=== PATIENT | male | born 1965 | race Caucasian/White ===

== ENCOUNTER 2023-07-03 17:55 | Inpatient (IN) ==
[2023-07-03] MEDS ORDERED: ONDANSETRON INJ 2 MG/ML 2 ML VIAL IV STA ×2 (17:56→19:36)
[2023-07-03] MEDS ORDERED: PANTOprazole 80 MG in SYRINGE 0 ML IV STA (17:56)
[2023-07-03] MEDS ORDERED: OCTREOTIDE ACETATE 100 MCG in SYRINGE 9 ML IV STA (17:56)
[2023-07-03] MEDS ORDERED: STAT IV/IM STA ×2 (17:56→20:23)
[2023-07-03] MEDS ORDERED: SODIUM CHLORIDE 0.9% 1,000 ML IV SCH (18:00)
--- NOTE | 2023-07-03 18:06 | Emergency Department Note ---
Impression & Plan Hematemesis, Hemorrhagic shock, Bleeding esophageal varices, Thrombocytopenia ED Provider Note HISTORY OF PRESENT ILLNESS: Patient is a 58-year-old male presenting with abdominal pain and gross hematemesis. Patient son provides history given patient's significant pain and vomiting blood. Son reports that the patient started vomiting bright red bloody emesis starting 20 minutes prior to arrival. He reports that the patient vomited "at least 3 L of blood in the house." He does report that the patient did have a few alcoholic drinks today. Patient is complaining of diffuse abdominal pain. Patient does report that he has a history of esophageal varices. Son reports that a few weeks ago the patient had to be intubated and life flighted out of [facility] ROS: as above PHYSICAL EXAM: Constitutional: Patient appears in moderate distress. Patient is vomiting bright red bloody emesis HENT: Head: Normocephalic and atraumatic. Eyes: EOMI, PERRL Mouth/Throat: Mucous membranes moist. Neck: Trachea midline. Neck supple. Cardiovascular: Tachycardic and regular rhythm. No murmurs, rubs or gallops. Intact distal pulses. Pulmonary/Chest: No respiratory distress. Breath sounds clear and equal bilaterally. No wheezes or rales. Abdominal: Abdomen soft, no rebound or guarding. Diffuse tenderness to palpation Musculoskeletal: No edema, tenderness or deformity noted. Skin: Warm and dry. Patient is jaundiced Neurological: Alert and keenly responsive. CN II-XII grossly intact, moving all extremities equally and fully. MDM: - Vitals signs showed hypotension and tachycardia - History obtained via patient patient's son. Patient presents with abdominal pain and gross hematemesis. Patient reportedly started vomiting bright red blood about 20 minutes prior to arrival. Son stated multiple episodes of bright red bloody vomitus. Patient has had a few alcoholic drinks today. Patient is complaining diffuse abdominal pain. He does have a history of cirrhosis with esophageal varices. - Chronic conditions affecting care: Alcohol cirrhosis - Differential diagnoses include, but are not limited to: Esophageal varices bleeding; peptic ulcer bleeding; Boerhaave's; perforated viscus - Order placed for continuous cardiac monitoring. At this time, monitor showed rate of 83 bpm with normal sinus rhythm, per my interpretation. - External medical records reviewed. - Given patient's active upper GI bleed and vital sign instability, he was geraldo rgently transfused 2 units of blood. He was also given 2 L of normal saline as fluid resuscitation. - Given 4 mg IV zofran on arrival for vomiting. - Given 80 mg IV Protonix and started on protonix drip. Given IV octreotide bolus and started on octreotide drip - Laboratory workup interpreted by myself showed leukopenia (WBC 3.82); anemia (Hgb 7.6); thrombocytopenia (plt 42); supratherapeutic INR (1.7); hypokalemia (K 2.7); elevated anon gap (13); normal creatinine; elevated AST (195); elevated ammonia (84); elevated lipase (132); elevated alcohol (215.2); elevated lactate (8.4) - Patient was monitored on telemetry in ER. His BP started to trend to low 90s. 2 more units of blood was ordered for transfusion and 2 units of platelets. - Given 50 mcg IV fentanyl for abdominal pain. - Patient given 20 mEq IV potassium replacement in ER. Given an additional 4 mg IV zofran for nausea. Given 1g IV calcium for hypokalemia and in setting of large volume transfusion. - CT abdomen/pelvis with IV contrast showed cirrhosis with manifestations of portal hypertension with esophageal varices. - Discussed case with GI director summer sessions, Dr. Carvajal. He recommends continuing Protonix and octreotide and transfusions as needed. We will plan for EGD in morning as long as patient has no further episodes of hematemesis. If patient does have further hematemesis, you, do the EGD. - Discussion was had with licensed master social worker about patient's case and need for admission - ICU NAVDEEP consulted for further care of patient. - Hospitalist consulted for admission - Patient admitted to [facility] for further evaluation and management. - Prior to the patient leaving the emergency department, he had another episode of bright red bloody emesis, about 200 cc of blood. Patient's blood pressure remained stable at 120s/80. Patient is receiving his third unit of blood. ICU at 2053 is refusing to admit the patient, stating the patient requires a higher level of care given his complicated medical history and his active GI bleeding. -Initiation of transfer was started to [facility], as patient states that is where he normally follows with his hospital supervisor. Transfer was initiated at 2107. -Dr. Carvajal with GI came and evaluated the patient in person. He is taken the patient to the Endo suite. ICU is now stating that with patient going to the Endo suite, he is stable enough to be kept here at our ICU. Patient to be admitted to the ICU post procedure. I provided 181 minutes of critical care time to this patient's care outside of billable procedures. ASSESSMENT AND PLAN: Diagnosis: Hematemesis; hemorrhagic shock; bleeding esophageal varices Plan: Admit Past Med/Surg History Social History Smoking Status: Never smoker Preferred Language: Hungarian Feels Safe at Home: Yes Allergies Allergies Allergy/AdvReac Type Severity Reaction Status Date / Time No Known Allergies Allergy Unverified 07/03/23 19:47 Home Meds Home Medications Medication Instructions Recorded Confirmed furosemide 40 mg tablet 40 mg PO QAM 07/03/23 07/03/23 hydroxyzine HCl 25 mg tablet 25 mg PO HS PRN Sleep 07/03/23 07/03/23 levothyroxine 100 mcg tablet 100 mcg PO DAILYBB 07/03/23 07/03/23 multivitamin 1 tab PO QAM 07/03/23 07/03/23 omega-3 fatty acids 1,000 mg 1,000 mg PO QAM 07/03/23 07/03/23 capsule potassium chloride 8 mEq 8 meq PO BID 07/03/23 07/03/23 tablet,extended release tamsulosin 0.4 mg capsule 0.4 mg PO HS 07/03/23 07/03/23 Results & Data (ED) Vital Signs Vital Signs - 24 hr 07/03/23 18:20 07/03/23 17:59 07/03/23 18:13 Temperature 36.6 C Temperature Source Oral Pulse Rate 102 H 96 H Pulse Rate from SpO2 Sensor Pulse Rhythm Pulse Strength Respiratory Rate 26 H Blood Pressure 79/53 L 105/62 Blood Pressure [Right Arm] Blood Pressure Mean 61 76 Blood Pressure Mean [Right Arm] Blood Pressure Position Sitting Pulse Oximetry 99 Oxygen Delivery Method Oxygen Flow Rate Sepsis Recent Fever Within 48 Hours No Sepsis New/Unexplained Change in Mental Status No Sepsis Action Taken by Nursing No Action Required 07/03/23 18:17 07/03/23 18:28 07/03/23 18:33 Temperature 36.1 C L Temperature Source Axillary Pulse Rate 84 87 8 L Pulse Rate from SpO2 Sensor Pulse Rhythm Regular Pulse Strength Normal Respiratory Rate 22 20 Blood Pressure 120/68 128/80 Blood Pressure [Right Arm] Blood Pressure Mean 85 96 Blood Pressure Mean [Right Arm] Blood Pressure Position Pulse Oximetry 100 99 100 Oxygen Delivery Method Nasal Cannula Oxygen Flow Rate 2 2 Sepsis Recent Fever Within 48 Hours Sepsis New/Unexplained Change in Mental Status Sepsis Action Taken by Nursing 07/03/23 18:00 07/03/23 18:14 07/03/23 18:15 Temperature Temperature Source Pulse Rate 101 H 96 H 94 H Pulse Rate from SpO2 Sensor 101 H 94 H Pulse Rhythm Pulse Strength Respiratory Rate 33 H 7 L 27 H Blood Pressure 110/68 105/62 120/68 Blood Pressure [Right Arm] Blood Pressure Mean 82 76 85 Blood Pressure Mean [Right Arm] Blood Pressure Position Pulse Oximetry 98 98 Oxygen Delivery Method Oxygen Flow Rate Sepsis Recent Fever Within 48 Hours Sepsis New/Unexplained Change in Mental Status Sepsis Action Taken by Nursing 07/03/23 18:20 07/03/23 18:30 07/03/23 18:35 Temperature Temperature Source Pulse Rate 89 90 80 Pulse Rate from SpO2 Sensor 90 89 80 Pulse Rhythm Pulse Strength Respiratory Rate 29 H 17 35 H Blood Pressure 103/68 128/80 129/69 Blood Pressure [Right Arm] Blood Pressure Mean 79 96 89 Blood Pressure Mean [Right Arm] Blood Pressure Position Pulse Oximetry 100 100 100 Oxygen Delivery Method Oxygen Flow Rate Sepsis Recent Fever Within 48 Hours Sepsis New/Unexplained Change in Mental Status Sepsis Action Taken by Nursing 07/03/23 18:35 07/03/23 18:40 07/03/23 18:45 Temperature Temperature Source Pulse Rate 88 100 H Pulse Rate from SpO2 Sensor 88 88 Pulse Rhythm Pulse Strength Respiratory Rate 30 H 31 H Blood Pressure 116/73 116/72 110/60 Blood Pressure [Right Arm] Blood Pressure Mean 96 86 76 Blood Pressure Mean [Right Arm] Blood Pressure Position Pulse Oximetry 100 100 Oxygen Delivery Method Nasal Cannula Oxygen Flow Rate 2 Sepsis Recent Fever Within 48 Hours Sepsis New/Unexplained Change in Mental Status Sepsis Action Taken by Nursing 07/03/23 18:50 07/03/23 18:50 07/03/23 18:55 Temperature Temperature Source Pulse Rate 73 Pulse Rate from SpO2 Sensor 74 Pulse Rhythm Pulse Strength Respiratory Rate 22 Blood Pressure 128/73 128/73 116/73 Blood Pressure [Right Arm] Blood Pressure Mean 84 91 78 Blood Pressure Mean [Right Arm] Blood Pressure Position Pulse Oximetry 100 100 Oxygen Delivery Method Nasal Cannula Nasal Cannula Oxygen Flow Rate 2 Sepsis Recent Fever Within 48 Hours Sepsis New/Unexplained Change in Mental Status Sepsis Action Taken by Nursing 07/03/23 18:55 07/03/23 18:59 07/03/23 18:59 Temperature Temperature Source Pulse Rate 70 78 Pulse Rate from SpO2 Sensor 70 78 Pulse Rhythm Pulse Strength Respiratory Rate 14 19 Blood Pressure 115/78 Blood Pressure [Right Arm] Blood Pressure Mean 90 Blood Pressure Mean [Right Arm] Blood Pressure Position Pulse Oximetry 100 100 Oxygen Delivery Method Oxygen Flow Rate Sepsis Recent Fever Within 48 Hours Sepsis New/Unexplained Change in Mental Status Sepsis Action Taken by Nursing 07/03/23 19:00 07/03/23 19:00 07/03/23 19:05 Temperature Temperature Source Pulse Rate 87 76 Pulse Rate from SpO2 Sensor 87 75 Pulse Rhythm Pulse Strength Respiratory Rate 23 13 Blood Pressure 109/78 Blood Pressure [Right Arm] Blood Pressure Mean 89 Blood Pressure Mean [Right Arm] Blood Pressure Position Pulse Oximetry 99 100 Oxygen Delivery Method Oxygen Flow Rate Sepsis Recent Fever Within 48 Hours Sepsis New/Unexplained Change in Mental Status Sepsis Action Taken by Nursing 07/03/23 19:05 07/03/23 19:10 07/03/23 19:10 Temperature Temperature Source Pulse Rate 79 Pulse Rate from SpO2 Sensor 79 Pulse Rhythm Pulse Strength Respiratory Rate 16 Blood Pressure 111/69 106/65 Blood Pressure [Right Arm] Blood Pressure Mean 83 80 Blood Pressure Mean [Right Arm] Blood Pressure Position Pulse Oximetry 99 Oxygen Delivery Method Oxygen Flow Rate Sepsis Recent Fever Within 48 Hours Sepsis New/Unexplained Change in Mental Status Sepsis Action Taken by Nursing 07/03/23 19:21 07/03/23 19:15 07/03/23 19:15 Temperature Temperature Source Pulse Rate 84 Pulse Rate from SpO2 Sensor 83 Pulse Rhythm Pulse Strength Respiratory Rate 19 Blood Pressure 110/59 L Blood Pressure [Right Arm] 99/60 L Blood Pressure Mean 76 Blood Pressure Mean [Right Arm] 73 Blood Pressure Position Pulse Oximetry 100 Oxygen Delivery Method Oxygen Flow Rate Sepsis Recent Fever Within 48 Hours Sepsis New/Unexplained Change in Mental Status Sepsis Action Taken by Nursing 07/03/23 19:45 07/03/23 20:00 07/03/23 21:00 Temperature 36.5 C 36.6 C Temperature Source Oral Oral Pulse Rate 90 83 Pulse Rate from SpO2 Sensor Pulse Rhythm Regular Regular Pulse Strength Normal Normal Respiratory Rate 24 20 Blood Pressure 84/53 L 94/58 L Blood Pressure [Right Arm] Blood Pressure Mean 63 70 Blood Pressure Mean [Right Arm] Blood Pressure Position Pulse Oximetry 98 100 Oxygen Delivery Method Nasal Cannula Oxygen Flow Rate 4 4 Sepsis Recent Fever Within 48 Hours Sepsis New/Unexplained Change in Mental Status Sepsis Action Taken by Nursing 07/03/23 21:25 07/03/23 20:24 07/03/23 19:20 Temperature 36.7 C 36.6 C Temperature Source Oral Oral Pulse Rate 82 87 Pulse Rate from SpO2 Sensor Pulse Rhythm Regular Pulse Strength Normal Respiratory Rate 18 34 H Blood Pressure 125/71 107/88 99/60 L Blood Pressure [Right Arm] Blood Pressure Mean 89 94 66 Blood Pressure Mean [Right Arm] Blood Pressure Position Pulse Oximetry 100 100 Oxygen Delivery Method Oxygen Flow Rate 4 Sepsis Recent Fever Within 48 Hours Sepsis New/Unexplained Change in Mental Status Sepsis Action Taken by Nursing 07/03/23 19:25 07/03/23 19:30 07/03/23 19:35 Temperature Temperature Source Pulse Rate 85 89 Pulse Rate from SpO2 Sensor 86 89 Pulse Rhythm Pulse Strength Respiratory Rate 22 21 Blood Pressure 89/52 L 89/60 L 84/53 L Blood Pressure [Right Arm] Blood Pressure Mean 61 69 63 Blood Pressure Mean [Right Arm] Blood Pressure Position Pulse Oximetry 99 99 Oxygen Delivery Method Oxygen Flow Rate Sepsis Recent Fever Within 48 Hours Sepsis New/Unexplained Change in Mental Status Sepsis Action Taken by Nursing 07/03/23 19:47 07/03/23 19:50 07/03/23 19:55 Temperature Temperature Source Pulse Rate 87 82 88 Pulse Rate from SpO2 Sensor 87 82 88 Pulse Rhythm Pulse Strength Respiratory Rate 35 H 25 H 50 H Blood Pressure 103/57 L 103/57 L 102/57 L Blood Pressure [Right Arm] Blood Pressure Mean 72 72 72 Blood Pressure Mean [Right Arm] Blood Pressure Position Pulse Oximetry 98 99 99 Oxygen Delivery Method Oxygen Flow Rate Sepsis Recent Fever Within 48 Hours Sepsis New/Unexplained Change in Mental Status Sepsis Action Taken by Nursing 07/03/23 20:00 07/03/23 20:05 07/03/23 20:10 Temperature Temperature Source Pulse Rate 85 82 85 Pulse Rate from SpO2 Sensor 86 82 84 Pulse Rhythm Pulse Strength Respiratory Rate 17 15 21 Blood Pressure 94/58 L 91/57 L 91/58 L Blood Pressure [Right Arm] Blood Pressure Mean 70 68 69 Blood Pressure Mean [Right Arm] Blood Pressure Position Pulse Oximetry 98 100 100 Oxygen Delivery Method Oxygen Flow Rate Sepsis Recent Fever Within 48 Hours Sepsis New/Unexplained Change in Mental Status Sepsis Action Taken by Nursing 07/03/23 20:16 07/03/23 20:20 07/03/23 20:25 Temperature Temperature Source Pulse Rate 109 H 103 H 90 Pulse Rate from SpO2 Sensor 99 H 103 H 89 Pulse Rhythm Pulse Strength Respiratory Rate 32 H 28 H 29 H Blood Pressure 82/45 L 107/88 110/69 Blood Pressure [Right Arm] Blood Pressure Mean 57 94 82 Blood Pressure Mean [Right Arm] Blood Pressure Position Pulse Oximetry 100 100 100 Oxygen Delivery Method Oxygen Flow Rate Sepsis Recent Fever Within 48 Hours Sepsis New/Unexplained Change in Mental Status Sepsis Action Taken by Nursing 07/03/23 20:30 07/03/23 20:35 07/03/23 20:40 Temperature Temperature Source Pulse Rate 83 82 Pulse Rate from SpO2 Sensor 84 83 Pulse Rhythm Pulse Strength Respiratory Rate 28 H 26 H Blood Pressure 105/66 108/60 99/59 L Blood Pressure [Right Arm] Blood Pressure Mean 79 76 66 Blood Pressure Mean [Right Arm] Blood Pressure Position Pulse Oximetry 100 100 Oxygen Delivery Method Oxygen Flow Rate Sepsis Recent Fever Within 48 Hours Sepsis New/Unexplained Change in Mental Status Sepsis Action Taken by Nursing 07/03/23 20:40 07/03/23 20:45 07/03/23 20:45 Temperature Temperature Source Pulse Rate 79 79 Pulse Rate from SpO2 Sensor 80 78 Pulse Rhythm Pulse Strength Respiratory Rate 21 14 Blood Pressure 95/58 L Blood Pressure [Right Arm] Blood Pressure Mean 62 Blood Pressure Mean [Right Arm] Blood Pressure Position Pulse Oximetry 100 100 Oxygen Delivery Method Oxygen Flow Rate Sepsis Recent Fever Within 48 Hours Sepsis New/Unexplained Change in Mental Status Sepsis Action Taken by Nursing 07/03/23 20:50 07/03/23 20:50 07/03/23 20:55 Temperature Temperature Source Pulse Rate 82 86 Pulse Rate from SpO2 Sensor 82 87 Pulse Rhythm Pulse Strength Respiratory Rate 44 H 45 H Blood Pressure 111/63 Blood Pressure [Right Arm] Blood Pressure Mean 70 Blood Pressure Mean [Right Arm] Blood Pressure Position Pulse Oximetry 100 100 Oxygen Delivery Method Oxygen Flow Rate Sepsis Recent Fever Within 48 Hours Sepsis New/Unexplained Change in Mental Status Sepsis Action Taken by Nursing 07/03/23 20:55 07/03/23 21:00 07/03/23 21:02 Temperature Temperature Source Pulse Rate 130 H 122 H Pulse Rate from SpO2 Sensor 130 H 124 H Pulse Rhythm Pulse Strength Respiratory Rate 25 H 46 H Blood Pressure 121/71 Blood Pressure [Right Arm] Blood Pressure Mean 79 Blood Pressure Mean [Right Arm] Blood Pressure Position Pulse Oximetry 99 96 Oxygen Delivery Method Oxygen Flow Rate Sepsis Recent Fever Within 48 Hours Sepsis New/Unexplained Change in Mental Status Sepsis Action Taken by Nursing 07/03/23 21:02 07/03/23 21:09 07/03/23 21:09 Temperature Temperature Source Pulse Rate 93 H Pulse Rate from SpO2 Sensor 93 H Pulse Rhythm Pulse Strength Respiratory Rate 30 H Blood Pressure 135/67 113/69 Blood Pressure [Right Arm] Blood Pressure Mean 88 86 Blood Pressure Mean [Right Arm] Blood Pressure Position Pulse Oximetry 100 Oxygen Delivery Method Nasal Cannula Oxygen Flow Rate 4 Sepsis Recent Fever Within 48 Hours Sepsis New/Unexplained Change in Mental Status Sepsis Action Taken by Nursing 07/03/23 21:10 07/03/23 21:10 07/03/23 21:48 Temperature 36.7 C Temperature Source Oral Pulse Rate 89 81 Pulse Rate from SpO2 Sensor 89 Pulse Rhythm Regular Pulse Strength Normal Respiratory Rate 25 H 18 Blood Pressure 117/65 105/62 Blood Pressure [Right Arm] Blood Pressure Mean 79 76 Blood Pressure Mean [Right Arm] Blood Pressure Position Pulse Oximetry 100 100 Oxygen Delivery Method Oxygen Flow Rate 4 Sepsis Recent Fever Within 48 Hours Sepsis New/Unexplained Change in Mental Status Sepsis Action Taken by Nursing 07/03/23 21:55 07/03/23 21:15 07/03/23 21:15 Temperature Temperature Source Pulse Rate 78 88 Pulse Rate from SpO2 Sensor 88 Pulse Rhythm Pulse Strength Respiratory Rate 27 H Blood Pressure 94/61 L Blood Pressure [Right Arm] Blood Pressure Mean 67 Blood Pressure Mean [Right Arm] Blood Pressure Position Pulse Oximetry 100 Oxygen Delivery Method Oxygen Flow Rate Sepsis Recent Fever Within 48 Hours Sepsis New/Unexplained Change in Mental Status Sepsis Action Taken by Nursing 07/03/23 21:20 07/03/23 21:20 07/03/23 21:25 Temperature Temperature Source Pulse Rate 89 Pulse Rate from SpO2 Sensor 89 Pulse Rhythm Pulse Strength Respiratory Rate 43 H Blood Pressure 121/62 106/65 Blood Pressure [Right Arm] Blood Pressure Mean 86 78 Blood Pressure Mean [Right Arm] Blood Pressure Position Pulse Oximetry 100 Oxygen Delivery Method Oxygen Flow Rate Sepsis Recent Fever Within 48 Hours Sepsis New/Unexplained Change in Mental Status Sepsis Action Taken by Nursing 07/03/23 21:25 07/03/23 21:30 07/03/23 21:32 Temperature Temperature Source Pulse Rate 91 H 89 Pulse Rate from SpO2 Sensor 91 H 90 Pulse Rhythm Pulse Strength Respiratory Rate 34 H 20 Blood Pressure 128/69 Blood Pressure [Right Arm] Blood Pressure Mean 89 Blood Pressure Mean [Right Arm] Blood Pressure Position Pulse Oximetry 100 100 Oxygen Delivery Method Oxygen Flow Rate Sepsis Recent Fever Within 48 Hours Sepsis New/Unexplained Change in Mental Status Sepsis Action Taken by Nursing 07/03/23 21:35 07/03/23 21:35 07/03/23 21:40 Temperature Temperature Source Pulse Rate 84 Pulse Rate from SpO2 Sensor 84 Pulse Rhythm Pulse Strength Respiratory Rate 16 Blood Pressure 125/71 113/64 Blood Pressure [Right Arm] Blood Pressure Mean 84 73 Blood Pressure Mean [Right Arm] Blood Pressure Position Pulse Oximetry 100 Oxygen Delivery Method Oxygen Flow Rate Sepsis Recent Fever Within 48 Hours Sepsis New/Unexplained Change in Mental Status Sepsis Action Taken by Nursing 07/03/23 21:40 07/03/23 21:45 07/03/23 21:45 Temperature Temperature Source Pulse Rate 85 85 Pulse Rate from SpO2 Sensor 86 85 Pulse Rhythm Pulse Strength Respiratory Rate 16 14 Blood Pressure 105/62 Blood Pressure [Right Arm] Blood Pressure Mean 73 Blood Pressure Mean [Right Arm] Blood Pressure Position Pulse Oximetry 100 100 Oxygen Delivery Method Oxygen Flow Rate Sepsis Recent Fever Within 48 Hours Sepsis New/Unexplained Change in Mental Status Sepsis Action Taken by Nursing 07/03/23 21:50 07/03/23 21:50 07/03/23 21:55 Temperature Temperature Source Pulse Rate 78 78 Pulse Rate from SpO2 Sensor 79 78 Pulse Rhythm Pulse Strength Respiratory Rate 13 14 Blood Pressure 98/63 L Blood Pressure [Right Arm] Blood Pressure Mean 72 Blood Pressure Mean [Right Arm] Blood Pressure Position Pulse Oximetry 100 100 Oxygen Delivery Method Oxygen Flow Rate Sepsis Recent Fever Within 48 Hours Sepsis New/Unexplained Change in Mental Status Sepsis Action Taken by Nursing 07/03/23 21:55 07/03/23 22:00 07/03/23 22:00 Temperature Temperature Source Pulse Rate 78 Pulse Rate from SpO2 Sensor 78 Pulse Rhythm Pulse Strength Respiratory Rate 13 Blood Pressure 105/62 113/62 Blood Pressure [Right Arm] Blood Pressure Mean 71 73 Blood Pressure Mean [Right Arm] Blood Pressure Position Pulse Oximetry 100 Oxygen Delivery Method Oxygen Flow Rate Sepsis Recent Fever Within 48 Hours Sepsis New/Unexplained Change in Mental Status Sepsis Action Taken by Nursing 07/03/23 22:05 07/03/23 22:05 07/03/23 22:10 Temperature Temperature Source Pulse Rate 77 Pulse Rate from SpO2 Sensor 77 Pulse Rhythm Pulse Strength Respiratory Rate 12 Blood Pressure 115/64 112/62 Blood Pressure [Right Arm] Blood Pressure Mean 79 76 Blood Pressure Mean [Right Arm] Blood Pressure Position Pulse Oximetry 100 Oxygen Delivery Method Oxygen Flow Rate Sepsis Recent Fever Within 48 Hours Sepsis New/Unexplained Change in Mental Status Sepsis Action Taken by Nursing 07/03/23 22:10 Temperature Temperature Source Pulse Rate 76 Pulse Rate from SpO2 Sensor 76 Pulse Rhythm Pulse Strength Respiratory Rate 12 Blood Pressure Blood Pressure [Right Arm] Blood Pressure Mean Blood Pressure Mean [Right Arm] Blood Pressure Position Pulse Oximetry 100 Oxygen Delivery Method Oxygen Flow Rate Sepsis Recent Fever Within 48 Hours Sepsis New/Unexplained Change in Mental Status Sepsis Action Taken by Nursing Laboratory Data 07/03/23 18:01 07/03/23 18:01 Lab Results 07/03/23 07/03/23 07/03/23 Range/Units 18:01 18:01 18:01 WBC 3.82 L (4.8-10.8) K/ul RBC 2.28 L (4.70-6.10) M/uL Hgb 7.6 L (14.0-18.0) g/dl POC Hgb (14.0-18.0) g/dl Hct 23.3 L (42.0-52.0) % POC Hct (42-52) % MCV 102.2 H (80.0-100.0) fL MCH 33.3 (25.0-34.0) pg MCHC 32.6 (32.0-36.0) g/dL RDW Std Deviation 65.7 H (36.4-46.3) fL RDW Coeff of Mp 17.4 H (11.5-14.5) % Plt Count 42 L (130-400) K/uL MPV 9.8 (9.4-12.4) fL Immature Gran % (Auto) 0.3 % Neut % (Auto) 35.3 % Lymph % (Auto) 45.8 % Bent % (Auto) 12.3 % Eos % (Auto) 4.7 % Baso % (Auto) 1.6 % Neut # (Auto) 1.35 L (1.40-6.50) K/uL Lymph # (Auto) 1.75 (1.20-3.40) K/uL Bent # (Auto) 0.47 (0.11-0.59) K/uL Eos # (Auto) 0.18 (0.00-0.50) K/uL Baso # (Auto) 0.06 (0.00-0.20) K/uL Immature Gran # (Auto) 0.01 (0.01-0.20) K/uL Platelet Estimate Decreased L (Normal) Anisocytosis Present Ovalocytes 1+ PT 17.9 H (9.0-12.0) Seconds INR 1.7 H (0.9-1.1) APTT 29.6 (21.0-31.0) Seconds PTT Ratio 1.0 Fibrinogen (184-400) mg/dl VBG pH (7.36-7.41) VBG pCO2 (38-50) mmHg VBG pO2 mmHg VBG HCO3 mmol/L VBG O2 Saturation % VBG Base Excess mEq/L POC Sodium (135-144) mmol/L Sodium (136-145) mmol/L POC Potassium (3.3-5.0) mmol/L Potassium (3.5-5.1) mmol/L POC Chloride (101-112) mmol/L Chloride (98-107) mmol/L Carbon Dioxide (21-32) mmol/L POC Total CO2 (24-31) mmol/L Anion Gap (3-11) POC Anion Gap (16-25) mmol/L POC BUN (7-18) mg/dl BUN (6-23) mg/dl Creatinine (0.6-1.4) mg/dl POC Creatinine (0.6-1.3) mg/dl Est Cr Clr Drug Dosing ml/min Est GFR ( Amer) ml/min Est GFR (Non-Af Amer) ml/min BUN/Creatinine Ratio (10-20) Glucose (70-99(Fasting)) mg/dl POC Glucose (other) (70-99) mg/dl Lactate (0.4-2.0) mmol/L Calcium (8.6-10.3) mg/dl POC Ioniz Calcium Roddy (1.12-1.32) mmol/l Total Bilirubin (0.2-1.0) mg/dl AST (13-39) U/L ALT (7-52) U/L Alkaline Phosphatase (34-104) U/L Ammonia (18-72) umol/L Troponin I High Sens (0-20) pg/ml Total Protein (6.0-8.3) gm/dl Albumin (3.4-5.0) gm/dl Globulin (2.5-4.0) gm/dl Albumin/Globulin Ratio (0.9-2) Lipase (11-82) U/L Urine Color Urine Appearance (Clear) Urine pH (4.5-7.5) Ur Specific [place] (1.000-1.030) Urine Protein (Negative) Urine Glucose (UA) (Negative) Urine Ketones (Negative) Urine Blood (Negative) Urine Nitrite (Negative) Urine Bilirubin (Negative) Urine Urobilinogen (Negative) Ur Leukocyte Esterase (Negative) Ethyl Alcohol mg/dL (<10.0) mg/dl SARS-CoV-2, RNA, NAAT (NEGATIVE) Blood Type O Positive Blood Type Recheck Antibody Screen NEGATIVE Crossmatch See Detail 07/03/23 07/03/23 07/03/23 Range/Units 18:01 18:01 18:01 WBC (4.8-10.8) K/ul RBC (4.70-6.10) M/uL Hgb (14.0-18.0) g/dl POC Hgb (14.0-18.0) g/dl Hct (42.0-52.0) % POC Hct (42-52) % MCV (80.0-100.0) fL MCH (25.0-34.0) pg MCHC (32.0-36.0) g/dL RDW Std Deviation (36.4-46.3) fL RDW Coeff of Mp (11.5-14.5) % Plt Count (130-400) K/uL MPV (9.4-12.4) fL Immature Gran % (Auto) % Neut % (Auto) % Lymph % (Auto) % Bent % (Auto) % Eos % (Auto) % Baso % (Auto) % Neut # (Auto) (1.40-6.50) K/uL Lymph # (Auto) (1.20-3.40) K/uL Bent # (Auto) (0.11-0.59) K/uL Eos # (Auto) (0.00-0.50) K/uL Baso # (Auto) (0.00-0.20) K/uL Immature Gran # (Auto) (0.01-0.20) K/uL Platelet Estimate (Normal) Anisocytosis Ovalocytes PT (9.0-12.0) Seconds INR (0.9-1.1) APTT (21.0-31.0) Seconds PTT Ratio Fibrinogen (184-400) mg/dl VBG pH (7.36-7.41) VBG pCO2 (38-50) mmHg VBG pO2 mmHg VBG HCO3 mmol/L VBG O2 Saturation % VBG Base Excess mEq/L POC Sodium (135-144) mmol/L Sodium 133 L (136-145) mmol/L POC Potassium (3.3-5.0) mmol/L Potassium 2.7 L (3.5-5.1) mmol/L POC Chloride (101-112) mmol/L Chloride 96 L (98-107) mmol/L Carbon Dioxide 24 (21-32) mmol/L POC Total CO2 (24-31) mmol/L Anion Gap 13 H (3-11) POC Anion Gap (16-25) mmol/L POC BUN (7-18) mg/dl BUN 11 (6-23) mg/dl Creatinine 0.81 (0.6-1.4) mg/dl POC Creatinine (0.6-1.3) mg/dl Est Cr Clr Drug Dosing 74.9 ml/min Est GFR ( Amer) 114.3 ml/min Est GFR (Non-Af Amer) 98.7 ml/min BUN/Creatinine Ratio 13.6 (10-20) Glucose 106 H (70-99(Fasting)) mg/dl POC Glucose (other) (70-99) mg/dl Lactate 8.4 H* (0.4-2.0) mmol/L Calcium 8.6 (8.6-10.3) mg/dl POC Ioniz Calcium Roddy (1.12-1.32) mmol/l Total Bilirubin 4.0 H (0.2-1.0) mg/dl AST 195 H (13-39) U/L ALT 44 (7-52) U/L Alkaline Phosphatase 151 H (34-104) U/L Ammonia 84.0 H (18-72) umol/L Troponin I High Sens 9.3 (0-20) pg/ml Total Protein 7.2 (6.0-8.3) gm/dl Albumin 2.9 L (3.4-5.0) gm/dl Globulin 4.3 H (2.5-4.0) gm/dl Albumin/Globulin Ratio 0.7 L (0.9-2) Lipase 132 H (11-82) U/L Urine Color Urine Appearance (Clear) Urine pH (4.5-7.5) Ur Specific [place] (1.000-1.030) Urine Protein (Negative) Urine Glucose (UA) (Negative) Urine Ketones (Negative) Urine Blood (Negative) Urine Nitrite (Negative) Urine Bilirubin (Negative) Urine Urobilinogen (Negative) Ur Leukocyte Esterase (Negative) Ethyl Alcohol mg/dL (<10.0) mg/dl SARS-CoV-2, RNA, NAAT (NEGATIVE) Blood Type Blood Type Recheck Antibody Screen Crossmatch 07/03/23 07/03/23 07/03/23 Range/Units 18:01 18:01 18:02 WBC (4.8-10.8) K/ul RBC (4.70-6.10) M/uL Hgb (14.0-18.0) g/dl POC Hgb 8.2 L (14.0-18.0) g/dl Hct (42.0-52.0) % POC Hct 24 L (42-52) % MCV (80.0-100.0) fL MCH (25.0-34.0) pg MCHC (32.0-36.0) g/dL RDW Std Deviation (36.4-46.3) fL RDW Coeff of Mp (11.5-14.5) % Plt Count (130-400) K/uL MPV (9.4-12.4) fL Immature Gran % (Auto) % Neut % (Auto) % Lymph % (Auto) % Bent % (Auto) % Eos % (Auto) % Baso % (Auto) % Neut # (Auto) (1.40-6.50) K/uL Lymph # (Auto) (1.20-3.40) K/uL Bent # (Auto) (0.11-0.59) K/uL Eos # (Auto) (0.00-0.50) K/uL Baso # (Auto) (0.00-0.20) K/uL Immature Gran # (Auto) (0.01-0.20) K/uL Platelet Estimate (Normal) Anisocytosis Ovalocytes PT (9.0-12.0) Seconds INR (0.9-1.1) APTT (21.0-31.0) Seconds PTT Ratio Fibrinogen (184-400) mg/dl VBG pH 7.44 H (7.36-7.41) VBG pCO2 33 L (38-50) mmHg VBG pO2 51 mmHg VBG HCO3 22 mmol/L VBG O2 Saturation 76.3 % VBG Base Excess -1.1 mEq/L POC Sodium 137 (135-144) mmol/L Sodium (136-145) mmol/L POC Potassium 2.8 L (3.3-5.0) mmol/L Potassium (3.5-5.1) mmol/L POC Chloride 95 L (101-112) mmol/L Chloride (98-107) mmol/L Carbon Dioxide (21-32) mmol/L POC Total CO2 23 L (24-31) mmol/L Anion Gap (3-11) POC Anion Gap 22.0 (16-25) mmol/L POC BUN 9 (7-18) mg/dl BUN (6-23) mg/dl Creatinine (0.6-1.4) mg/dl POC Creatinine 1.3 (0.6-1.3) mg/dl Est Cr Clr Drug Dosing ml/min Est GFR ( Amer) ml/min Est GFR (Non-Af Amer) ml/min BUN/Creatinine Ratio (10-20) Glucose (70-99(Fasting)) mg/dl POC Glucose (other) 110 H (70-99) mg/dl Lactate (0.4-2.0) mmol/L Calcium (8.6-10.3) mg/dl POC Ioniz Calcium Roddy 1.01 L (1.12-1.32) mmol/l Total Bilirubin (0.2-1.0) mg/dl AST (13-39) U/L ALT (7-52) U/L Alkaline Phosphatase (34-104) U/L Ammonia (18-72) umol/L Troponin I High Sens (0-20) pg/ml Total Protein (6.0-8.3) gm/dl Albumin (3.4-5.0) gm/dl Globulin (2.5-4.0) gm/dl Albumin/Globulin Ratio (0.9-2) Lipase (11-82) U/L Urine Color Urine Appearance (Clear) Urine pH (4.5-7.5) Ur Specific [place] (1.000-1.030) Urine Protein (Negative) Urine Glucose (UA) (Negative) Urine Ketones (Negative) Urine Blood (Negative) Urine Nitrite (Negative) Urine Bilirubin (Negative) Urine Urobilinogen (Negative) Ur Leukocyte Esterase (Negative) Ethyl Alcohol mg/dL 215.2 H (<10.0) mg/dl SARS-CoV-2, RNA, NAAT (NEGATIVE) Blood Type Blood Type Recheck Antibody Screen Crossmatch 07/03/23 07/03/23 07/03/23 Range/Units 18:30 18:36 20:57 WBC (4.8-10.8) K/ul RBC (4.70-6.10) M/uL Hgb (14.0-18.0) g/dl POC Hgb (14.0-18.0) g/dl Hct (42.0-52.0) % POC Hct (42-52) % MCV (80.0-100.0) fL MCH (25.0-34.0) pg MCHC (32.0-36.0) g/dL RDW Std Deviation (36.4-46.3) fL RDW Coeff of Mp (11.5-14.5) % Plt Count (130-400) K/uL MPV (9.4-12.4) fL Immature Gran % (Auto) % Neut % (Auto) % Lymph % (Auto) % Bent % (Auto) % Eos % (Auto) % Baso % (Auto) % Neut # (Auto) (1.40-6.50) K/uL Lymph # (Auto) (1.20-3.40) K/uL Bent # (Auto) (0.11-0.59) K/uL Eos # (Auto) (0.00-0.50) K/uL Baso # (Auto) (0.00-0.20) K/uL Immature Gran # (Auto) (0.01-0.20) K/uL Platelet Estimate (Normal) Anisocytosis Ovalocytes PT (9.0-12.0) Seconds INR (0.9-1.1) APTT (21.0-31.0) Seconds PTT Ratio Fibrinogen (184-400) mg/dl VBG pH (7.36-7.41) VBG pCO2 (38-50) mmHg VBG pO2 mmHg VBG HCO3 mmol/L VBG O2 Saturation % VBG Base Excess mEq/L POC Sodium (135-144) mmol/L Sodium (136-145) mmol/L POC Potassium (3.3-5.0) mmol/L Potassium (3.5-5.1) mmol/L POC Chloride (101-112) mmol/L Chloride (98-107) mmol/L Carbon Dioxide (21-32) mmol/L POC Total CO2 (24-31) mmol/L Anion Gap (3-11) POC Anion Gap (16-25) mmol/L POC BUN (7-18) mg/dl BUN (6-23) mg/dl Creatinine (0.6-1.4) mg/dl POC Creatinine (0.6-1.3) mg/dl Est Cr Clr Drug Dosing ml/min Est GFR ( Amer) ml/min Est GFR (Non-Af Amer) ml/min BUN/Creatinine Ratio (10-20) Glucose (70-99(Fasting)) mg/dl POC Glucose (other) (70-99) mg/dl Lactate 7.6 H* (0.4-2.0) mmol/L Calcium (8.6-10.3) mg/dl POC Ioniz Calcium Roddy (1.12-1.32) mmol/l Total Bilirubin (0.2-1.0) mg/dl AST (13-39) U/L ALT (7-52) U/L Alkaline Phosphatase (34-104) U/L Ammonia (18-72) umol/L Troponin I High Sens (0-20) pg/ml Total Protein (6.0-8.3) gm/dl Albumin (3.4-5.0) gm/dl Globulin (2.5-4.0) gm/dl Albumin/Globulin Ratio (0.9-2) Lipase (11-82) U/L Urine Color Urine Appearance (Clear) Urine pH (4.5-7.5) Ur Specific [place] (1.000-1.030) Urine Protein (Negative) Urine Glucose (UA) (Negative) Urine Ketones (Negative) Urine Blood (Negative) Urine Nitrite (Negative) Urine Bilirubin (Negative) Urine Urobilinogen (Negative) Ur Leukocyte Esterase (Negative) Ethyl Alcohol mg/dL (<10.0) mg/dl SARS-CoV-2, RNA, NAAT NEGATIVE (NEGATIVE) Blood Type Blood Type Recheck O Positive Antibody Screen Crossmatch 07/03/23 07/03/23 Range/Units 21:15 21:42 WBC (4.8-10.8) K/ul RBC (4.70-6.10) M/uL Hgb (14.0-18.0) g/dl POC Hgb (14.0-18.0) g/dl Hct (42.0-52.0) % POC Hct (42-52) % MCV (80.0-100.0) fL MCH (25.0-34.0) pg MCHC (32.0-36.0) g/dL RDW Std Deviation (36.4-46.3) fL RDW Coeff of Mp (11.5-14.5) % Plt Count (130-400) K/uL MPV (9.4-12.4) fL Immature Gran % (Auto) % Neut % (Auto) % Lymph % (Auto) % Bent % (Auto) % Eos % (Auto) % Baso % (Auto) % Neut # (Auto) (1.40-6.50) K/uL Lymph # (Auto) (1.20-3.40) K/uL Bent # (Auto) (0.11-0.59) K/uL Eos # (Auto) (0.00-0.50) K/uL Baso # (Auto) (0.00-0.20) K/uL Immature Gran # (Auto) (0.01-0.20) K/uL Platelet Estimate (Normal) Anisocytosis Ovalocytes PT (9.0-12.0) Seconds INR (0.9-1.1) APTT (21.0-31.0) Seconds PTT Ratio Fibrinogen 131 L (184-400) mg/dl VBG pH (7.36-7.41) VBG pCO2 (38-50) mmHg VBG pO2 mmHg VBG HCO3 mmol/L VBG O2 Saturation % VBG Base Excess mEq/L POC Sodium (135-144) mmol/L Sodium (136-145) mmol/L POC Potassium (3.3-5.0) mmol/L Potassium (3.5-5.1) mmol/L POC Chloride (101-112) mmol/L Chloride (98-107) mmol/L Carbon Dioxide (21-32) mmol/L POC Total CO2 (24-31) mmol/L Anion Gap (3-11) POC Anion Gap (16-25) mmol/L POC BUN (7-18) mg/dl BUN (6-23) mg/dl Creatinine (0.6-1.4) mg/dl POC Creatinine (0.6-1.3) mg/dl Est Cr Clr Drug Dosing ml/min Est GFR ( Amer) ml/min Est GFR (Non-Af Amer) ml/min BUN/Creatinine Ratio (10-20) Glucose (70-99(Fasting)) mg/dl POC Glucose (other) (70-99) mg/dl Lactate (0.4-2.0) mmol/L Calcium (8.6-10.3) mg/dl POC Ioniz Calcium Roddy (1.12-1.32) mmol/l Total Bilirubin (0.2-1.0) mg/dl AST (13-39) U/L ALT (7-52) U/L Alkaline Phosphatase (34-104) U/L Ammonia (18-72) umol/L Troponin I High Sens (0-20) pg/ml Total Protein (6.0-8.3) gm/dl Albumin (3.4-5.0) gm/dl Globulin (2.5-4.0) gm/dl Albumin/Globulin Ratio (0.9-2) Lipase (11-82) U/L Urine Color Yellow Urine Appearance Clear (Clear) Urine pH 6.0 (4.5-7.5) Ur Specific [place] 1.045 H (1.000-1.030) Urine Protein Negative (Negative) Urine Glucose (UA) Negative (Negative) Urine Ketones Negative (Negative) Urine Blood Negative (Negative) Urine Nitrite Negative (Negative) Urine Bilirubin Negative (Negative) Urine Urobilinogen Negative (Negative) Ur Leukocyte Esterase Negative (Negative) Ethyl Alcohol mg/dL (<10.0) mg/dl SARS-CoV-2, RNA, NAAT (NEGATIVE) Blood Type Blood Type Recheck Antibody Screen Crossmatch Administered Medications Octreotide Acetate 500 mcg/ (Sodium Chloride) 100.5 mls @ 10.05 mls/hr IV .Q10H CAROL Stop: 08/02/23 17:59 Last Admin: 07/03/23 18:31 Dose: 50 mcg/hr, 10.1 mls/hr Documented By: MILO Pantoprazole Sodium 40 mg/ (Dextrose) 100 mls @ 20 mls/hr IV Q5H CAROL Stop: 08/02/23 18:29 Last Admin: 07/03/23 18:31 Dose: 8 mg/hr, 20 mls/hr Documented By: MILO Discontinued Medications Fentanyl Citrate (Fentanyl Citrate Pf 100 Mcg/2 Ml Vial) 50 mcg IV NOW STA Stop: 07/03/23 18:37 Last Admin: 07/03/23 18:51 Dose: 50 mcg Documented By: PEDRITO Sodium Chloride (Nss) 1,000 mls @ 999 mls/hr IV .Q1H1M CAROL Stop: 07/03/23 19:00 Last Infusion: 07/03/23 19:22 Dose: 0 mls/hr Documented By: Admin: 07/03/23 18:00 Dose: 999 mls/hr Documented By: MILO Octreotide Acetate 100 mcg/ (Syringe) 10 mls @ 3 mls/min IV NOW STA Stop: 07/03/23 17:59 Last Admin: 07/03/23 18:25 Dose: 3 mls/min Documented By: MILO Pantoprazole Sodium 80 mg/ (Dextrose) 120 mls @ 480 mls/hr IV 1815 CAROL Stop: 07/03/23 18:29 Last Infusion: 07/03/23 18:40 Dose: 0 mls/hr Documented By: Admin: 07/03/23 18:19 Dose: 480 mls/hr Documented By: MILO Potassium Chloride (K [place] / Wtr) 10 meq in 100 mls @ 100 mls/hr IV Q1H CAROL Stop: 07/03/23 20:44 Last Admin: 07/03/23 21:40 Dose: 100 mls/hr Documented By: Infusion: 07/03/23 21:40 Dose: 100 mls/hr Documented By: Admin: 07/03/23 20:40 Dose: 100 mls/hr Documented By: LURDES Calcium Gluconate () 1,000 mg in 60 mls @ 240 mls/hr IV NOW STA Stop: 07/03/23 18:54 Last Infusion: 07/03/23 19:22 Dose: 0 mls/hr Documented By: Admin: 07/03/23 18:52 Dose: 240 mls/hr Documented By: MES Phytonadione 10 mg/ Dextrose 51 mls @ 102 mls/hr IV ONE ONE Stop: 07/03/23 19:44 Last Infusion: 07/03/23 21:50 Dose: 0 mls/hr Documented By: Admin: 07/03/23 20:46 Dose: 102 mls/hr Documented By: LURDES Calcium Gluconate 1,000 mg/ (Sodium Chloride) 60 mls @ 240 mls/hr IV Q15M CAROL Stop: 07/03/23 20:59 Last Infusion: 07/03/23 21:49 Dose: 0 mls/hr Documented By: Admin: 07/03/23 21:30 Dose: 240 mls/hr Documented By: Infusion: 07/03/23 20:55 Dose: 0 mls/hr Documented By: Admin: 07/03/23 20:30 Dose: 240 mls/hr Documented By: REMIGIO Ioversol (Optiray 320 100ml) 87 ml IV ONCE ONE Stop: 07/03/23 18:12 Last Admin: 07/03/23 18:12 Dose: 87 ml Documented By: MAURO Ondansetron HCl (Ondansetron Inj 2 Mg/Ml 2 Ml Vial) 4 mg IV ONE STA Stop: 07/03/23 17:57 Last Admin: 07/03/23 18:19 Dose: 4 mg Documented By: MILO Ondansetron HCl (Ondansetron Inj 2 Mg/Ml 2 Ml Vial) 4 mg IV NOW STA Stop: 07/03/23 19:37 Last Admin: 07/03/23 19:40 Dose: 4 mg Documented By: LURDES Imaging Data Radiologist's Impression: Abdomen/Pelvis CT 07/03/23 17:59 CT OF THE ABDOMEN AND PELVIS WITH CONTRAST CLINICAL HISTORY: Abdominal pain. Hematemesis. COMPARISON STUDY: None. TECHNIQUE: Following IV administration of 87 mL of Optiray, axial images of the abdomen and pelvis were obtained from the lung bases to the proximal femurs. Images were reviewed in the axial, sagittal, and coronal planes. IV contrast was administered without complication. Automated exposure control was utilized for the study. A dose lowering technique was utilized adhering to the principles of ALARA. CT DOSE: 1295.64 mGy.cm FINDINGS: An 8 mm solid noncalcified left lower lobe pulmonary nodule on image 37 of 389 is noted. There is bilateral gynecomastia. No pneumatosis, free air or portal venous gas is present. Extensive paraesophageal and esophageal varices are present. Hyperdense material within the stomach is noted. The liver is cirrhotic. Heterogeneity of the liver is likely due to cirrhosis. No well- defined hepatic lesions are identified although sensitivity for detection of hypervascular lesions is diminished on this portal venous phase exam. The main, left and right portal veins are patent. There is no biliary ductal dilatation status post cholecystectomy. There are diverticula of the second and third portions of the duodenum. The spleen is enlarged. Additional abdominal and pelvic varices are present. Adrenal glands, kidneys and pancreas are unremarkable. There is no hydronephrosis. There is no pancreatic ductal dilatation. Moderate right colon wall thickening is noted with pericolonic stranding. A small amount of ascites within the abdomen is present. There is also rectal wall thickening. There is no evidence for a bowel obstruction. Major vasculature is patent. Avascular necrosis of the bilateral femoral heads without collapse is noted. IMPRESSION: 1. Cirrhosis with manifestations of portal hypertension including paraesophageal/esophageal varices, splenomegaly and a small amount of ascites. 2. Mixed attenuation contents within the stomach. This could reflect blood products intermixed with ingested contents. 3. Moderate right colon wall thickening with pericolonic stranding and fluid. Mild rectal wall thickening. The findings are likely related to portal hypertension however a nonspecific proctocolitis could appear similar. 4. No bowel obstruction. Normal appendix. 5. 8 mm left lower lobe pulmonary nodule. A follow-up chest CT in 6 months to ensure stability is recommended. 6. Avascular necrosis of the bilateral femoral heads without collapse. ACT 112: Negative or not required by law. Electronically signed by: Jon Torres M.D. 07/03/2023 6:42 PM Discharge Plan Visit Data Chief Complaint: Vomiting Stated Complaint: VOMITING ED Provider: Hollie Gary Discharge Problem: Hematemesis, Hemorrhagic shock, Bleeding esophageal varices, Thrombocytopenia Patient Disposition: Home - Self-Care Forms Stand Alone Forms: [facility], Virtual Emergency Department, Im portant Visit Information Prescriptions Prescriptions: No Action furosemide 40 mg tablet 40 mg PO QAM levothyroxine 100 mcg tablet 100 mcg PO DAILYBB potassium chloride 8 mEq tablet extended release 8 meq PO BID tamsulosin 0.4 mg capsule 0.4 mg PO HS hydroxyzine HCl 25 mg tablet 25 mg PO HS PRN (Reason: Sleep) Rx Instructions: ordered routine..pt only takes prn multivitamin Tablet 1 tab PO QAM omega-3 fatty acids 1,000 mg Capsule 1,000 mg PO QAM Referrals Referrals: PCP,NO [Primary Care Provider] -
[2023-07-03] MEDS ORDERED: OPTIRAY 320 100ml IV ONE (18:11)
[2023-07-03 18:14] LABS: iSTAT Creatinine 1.3 mg/dl (0.6-1.3); iSTAT Hemoglobin 8.2 g/dl (14.0-18.0); iSTAT Ionized Calcium 1.01 mmol/l (1.12-1.32); iSTAT Potassium 2.8 mmol/L (3.3-5.0)
[2023-07-03] MEDS ORDERED: PANTOprazole 80 MG in DEXTROSE 5% 100 ML IV SCH (18:15)
[2023-07-03 18:22] LABS: Base Excess VBG -1.1 mEq/L; HCO3 VBG 22 mmol/L; Oxygen Saturation VBG 76.3 %; PCO2 VBG 33 mmHg (38-50); PO2 VBG 51 mmHg; pH VBG 7.44 (7.36-7.41)
[2023-07-03 18:29] LABS: INR 1.7 (0.9-1.1); Partial Thromboplastin Time 29.6 Seconds (21.0-31.0); Prothrombin Time 17.9 Seconds (9.0-12.0)
[2023-07-03] MEDS: PANTOprazole 40 MG in DEXTROSE 5% MINI-B 100 ML IV SCH (18:31)
[2023-07-03] MEDS: OCTREOTIDE ACETATE 500 MCG in 0.9 % SODIUM CHLORIDE 100 ML IV SCH (18:31)
[2023-07-03] MEDS ORDERED: fentaNYL citrate PF 100 MCG/2 ML VIAL IV STA (18:36)
[2023-07-03 18:38] LABS: Albumin Level 2.9 gm/dl (3.4-5.0); Calcium 8.6 mg/dl (8.6-10.3); Potassium 2.7 mmol/L (3.5-5.1)
[2023-07-03] MEDS ORDERED: CALCIUM GLUCONATE 1,000 MG/60 ML BAG IV STA (18:40)
[2023-07-03 18:43] LABS: Anisocytosis Present; Basophils # (auto) 0.06 K/uL (0.00-0.20); Basophils % (auto) 1.6 %; Eosinophils # (auto) 0.18 K/uL (0.00-0.50); Eosinophils % (auto) 4.7 %; Hematocrit (blood only) 23.3 % (42.0-52.0); Hemoglobin 7.6 g/dl (14.0-18.0); Immature Granulocytes # (auto) 0.01 K/uL (0.01-0.20); Immature Granulocytes % (auto) 0.3 %; Lymphocytes # (auto) 1.75 K/uL (1.20-3.40); Lymphocytes % (auto) 45.8 %; Mean Corpuscular Hemoglobin 33.3 pg (25.0-34.0); Mean Corpuscular Hgb Conc 32.6 g/dL (32.0-36.0); Mean Corpuscular Volume 102.2 fL (80.0-100.0); Mean Platelet Volume 9.8 fL (9.4-12.4); Monocytes # (auto) 0.47 K/uL (0.11-0.59); Monocytes % (auto) 12.3 %; Neutrophils # (auto) 1.35 K/uL (1.40-6.50); Neutrophils % (auto) 35.3 %; Ovalocytes 1+; Platelet Count 42 K/uL (130-400); Platelet Estimate Decreased (Normal); RDW Coefficient of Variation 17.4 % (11.5-14.5); RDW Standard Deviation 65.7 fL (36.4-46.3); Red Blood Count 2.28 M/uL (4.70-6.10); White Blood Count 3.82 K/ul (4.8-10.8)
[2023-07-03 18:44] LABS: Albumin Globulin Ratio 0.7 (0.9-2); BUN Creatinine Ratio 13.6 (10-20); Creatinine Clr Calc Pharmacy 74.9 ml/min; Est GFR (African American) 114.3 ml/min; Est GFR (Non-African American) 98.7 ml/min; Globulin 4.3 gm/dl (2.5-4.0); Total Protein 7.2 gm/dl (6.0-8.3)
--- NOTE | 2023-07-03 18:45 | CT Scan Report ---
CT OF THE ABDOMEN AND PELVIS WITH CONTRAST CLINICAL HISTORY: Abdominal pain. Hematemesis. COMPARISON STUDY: None. TECHNIQUE: Following IV administration of 87 mL of Optiray, axial images of the abdomen and pelvis we re obtained from the lung bases to the proximal femurs. Images were reviewed in the axial, sagittal, and coronal planes. IV contrast was administered without complication. Automated exposure control wa s utilized for the study. A dose lowering technique was utilized adhering to the principles of ALARA . CT DOSE: 1295.64 mGy.cm FINDINGS: An 8 mm solid noncalcified left lower lobe pulmonary nodule on image 37 of 389 is noted. Th ere is bilateral gynecomastia. No pneumatosis, free air or portal venous gas is present. Extensive pa raesophageal and esophageal varices are present. Hyperdense material within the stomach is noted. The liver is cirrhotic. Heterogeneity of the liver is likely due to cirrhosis. No well-defined hepatic l esions are identified although sensitivity for detection of hypervascular lesions is diminished on th is portal venous phase exam. The main, left and right portal veins are patent. There is no biliary du ctal dilatation status post cholecystectomy. There are diverticula of the second and third portions o f the duodenum. The spleen is enlarged. Additional abdominal and pelvic varices are present. Adrenal glands, kidneys and pancreas are unremarkable. There is no hydronephrosis. There is no pancreatic iris benjie dilatation. Moderate right colon wall thickening is noted with pericolonic stranding. A small ana unt of ascites within the abdomen is present. There is also rectal wall thickening. There is no evide nce for a bowel obstruction. Major vasculature is patent. Avascular necrosis of the bilateral femoral heads without collapse is noted. IMPRESSION: 1. Cirrhosis with manifestations of portal hypertension including paraesophageal/esophageal varices, splenomegaly and a small amount of ascites. 2. Mixed attenuation contents within the stomach. This could reflect blood products intermixed with i ngested contents. 3. Moderate right colon wall thickening with pericolonic stranding and fluid. Mild rectal wall thicke julaine. The findings are likely related to portal hypertension however a nonspecific proctocolitis coul d appear similar. 4. No bowel obstruction. Normal appendix. 5. 8 mm left lower lobe pulmonary nodule. A follow-up chest CT in 6 months to ensure stability is rec ommended. 6. Avascular necrosis of the bilateral femoral heads without collapse. ACT 112: Negative or not required by law. Electronically signed by: Jon Torres M.D. 07/03/2023 6:42 PM
[2023-07-03] MEDS ORDERED: PHYTONADIONE 10 MG in DEXTROSE 5% 50 ML IV ONE (19:15)
[2023-07-03] MEDS ORDERED: SODIUM CHLORIDE 0.9% 250 ML IV PRN ×2 (19:23→20:20)
[2023-07-03] MEDS: CALCIUM GLUCONATE 10% 1,000 MG in SODIUM CHLOR 0.9% MINI-B 50 ML IV SCH ×2 (20:30→21:30)
[2023-07-03] MEDS: POTASSIUM CHLORIDE / WTR 10 MEQ/100 ML PLCT IV SCH ×2 (20:40→21:40)
--- NOTE | 2023-07-03 20:48 | Critical Care Consultation ---
Date of Consultation July 03, 2023 Assessment & Plan (1) Hemorrhagic shock: Reason Critically Ill: 58-year-old male with history of alcoholic cirrhosis presented to the emergency department with gross hematemesis with hortencia red blood, hemorrhagic shock from upper GI bleed source. CT abdomen and pelvis r eveal esophageal varices. Patient started on a ocreotide and Protonix, and transfused 3 units RBCs, 1 unit FFP, 1 unit platelets and continues to have episodes of hematemesis with hypotension. Plan to undergo emergent EGD. Neuro - Encephalopathysuspect this is hepatic encephalopathy considering elevated ammonia. Intoxication with EtOH 215 and may be exhibiting early signs of alcohol withdrawal. -Lactulose administration complicated by GI bleeding -Will likely need KRISTIE S scale with IV Ativan for withdrawal. Patient's son states that he has undergone alcohol withdrawal while inpatient in the past -Consider banana bag. Replete electrolytes. IV thiamine, folic acid Cardiac - Hypotensionsecondary to hemorrhagic shock. So far has been responsive to bolus/rapid blood transfusion. Not currently on vasopressors. See transfusion treatment below/GI bleed. Respiratory - No history of pulmonary disease. Currently maintaining oxygen saturation on nasal cannula. Continuous monitoring pulse ox GI - Acute upper GI bleedsuspect this is likely secondary to underlying liver disease/esophageal varices which were seen on CT abdomen and pelvis. -See transfusion below -Continue pancreatitis and Protonix drips -GI consulted and plan to undergo emergent EGD, will follow-up with GI for recommendations post EGD findings. RENAL/LYTES - Creatinine within normal limits. Monitor routine BMPs and replete electrolytes as indicated Lactic acidosispatient currently has a lactate of 8 without significant metabolic acidosis. Given GI bleeding is likely this could worsen, patient will have hard time clearing lactic acid given underlying liver disease. Will monitor closely and low threshold for administration of bicarb. - Foleystrict I's and O's ENDO - No history of diabetes or thyroid disease. Currently euglycemic HEME - Acute blood loss anemiasecondary to upper GI bleed. Currently transfused 3 units RBCs, 1 unit FFP, 1 unit platelets -10 mg IV vitamin K administered -Fibrinogen pending, consider cryoprecipitate if under 200 -Trend CBC and transfuse as indicated ID - Recommend administration of empiric Rocephin giving bleeding varices, ascites LINES/IV ACCESS - Peripheral IVs DVT PROPHYLAXIS - SCDs, holding anticoagulation in the setting of acute GI bleed I have personally spent 50 minutes of critical care time in the direct management of this patient. This is a life/limb threatening event. This includes time spent evaluating patient, direct bedside care, chart review, placing orders, interpretation of diagnostic studies, discussion with consultants, patient, and family members, as well as other required patient management activities. This time is exclusive of all separately billable procedures, and teaching time and separate from and in addition to any other critical care service time. Thank you for allowing us to participate in the care of this patient. Please refer to my attending physician's documentation for any further recommendations. (2) End stage liver disease: (3) Bleeding esophageal varices: (4) Alcoholic cirrhosis: (5) Hematemesis: (6) Thrombocytopenia: (7) Lactic acidosis: Supervising Physician Co-Signing Physician Notes Patient was seen and examined. EMR reviewed. Discussed with the [facility] overnight as well is with the chief port director on the phone. Patient presented with history of alcoholic cirrhosis and upper GI bleed. Endoscopy revealed a varix which was banded. Has been hemodynamically stable. Will continue octreotide and Protonix. Diet per GI. Apparently the admitting service feels the patient will be best served by transfer and has been accepted to [facility]. His critical care issues appear resolved and he likely will need repeat endoscopy for further evaluation of his varices in the future. Continue antibiotics for variceal bleed. A total of 90 minutes in critical care time was spent in evaluation management stabilization of this patient with life-threatening medical issues. History of Present Illness History of Present Illness Patient is a 58-year-old male with past medical history significant for alcoholic cirrhosis with end-stage liver disease (continues to drink daily and is not currently followed by liver transplant service), hypothyroidism, BPH who presented to the emergency department earlier this evening following an episode where he vomited approximately 1 L of hortencia red blood. Patient is from the [facility] and he was visiting his son. He presented to the emergency department hypotensive continuing to vomit hortenica red blood. He had 2 units RBCs rapidly transfused and was in the process of receiving additional unit RBCs. INR 1.7 and he is receiving IV vitamin K and 1 unit FFP. He is also receiving unit of platelets and undergoing electrolyte repletion. GI consulted and patien t placed on ocreotide and Protonix drips. CT abdomen and pelvis revealed cirrhosis with manifestations of portal hypertension including paraesophageal/esophageal varices, splenomegaly and a small amount of ascites. At this time, it appears the patient is continuingly bleeding from upper GI source. Patient was discussed with hand ii cutter Dr. Beckett. GI service made aware of the patient's condition and plan to undergo emergent EGD. We will follow-up with GI for recommendations post EGD, regarding transfer to tertiary center for higher level of care given the complexity of underlying liver disease. Patient was evaluated at the bedside in the emergency department. Upon evaluation the patient appears to be confused. He was noted to have an elevated ammonia of 84, and son explains that he has gone through withdrawal on inpatient admissions in the past. He denies headache, dizziness, recent fevers or illness, chest pain or palpitations, shortness of breath, cough, swelling in hands or feet. Patient does report abdominal pain which was significantly tender with light palpation. He also reports nausea and vomited approximately 200 mL of hortencia red blood during exam. Allergies Allergy/AdvReac Type Severity Reaction Status Date / Time No Known Allergies Allergy Unverified 07/03/23 19:47 Home Medications Medication Instructions Recorded Confirmed Type furosemide 40 mg tablet 40 mg PO QAM 07/03/23 07/03/23 History hydroxyzine HCl 25 mg tablet 25 mg PO HS PRN Sleep 07/03/23 07/03/23 History levothyroxine 100 mcg tablet 100 mcg PO DAILYBB 07/03/23 07/03/23 History multivitamin 1 tab PO QAM 07/03/23 07/03/23 History omega-3 fatty acids 1,000 mg 1,000 mg PO QAM 07/03/23 07/03/23 History capsule potassium chloride 8 mEq 8 meq PO BID 07/03/23 07/03/23 History tablet,extended release tamsulosin 0.4 mg capsule 0.4 mg PO HS 07/03/23 07/03/23 History Patient History Social History Smoking Status: Never smoker Tobacco Type: Smokeless Tobacco (Dip or Chew) Second Hand Exposure: No; Do You Dip or Chew Tobacco: Yes; Hx Alcohol Use: Yes Alcohol type: beer and hard liquor Hx Substance Use: No Preferred Language: Grenadian Communication Ability: Effective Wrapper Sheeter Required: No Beliefs That Will Affect Care: Restoration Current Living Situation: Significant Other Other Information That Helps Us Care for You: No Feels Safe at Home: No Is there a partner from a previous relationship who is making you feel unsafe now?: No Any Concerns about Your Family Situation: No Would You Like to Speak to Someone About Your Situation: No Safety Concerns: Feels Safe At This Time Assistive Devices: None Review of Systems Review of Systems: All systems reviewed & are unremarkable except as noted in HPI & below Physical Exam Constitutional: + intoxicated appearing, + altered mental status and + frail appearing Eyes: PERRL, conjunctivae normal, anicteric sclerae ENMT: external ear and nose normal, oropharynx normal Neck: trachea midline, no thyromegaly Respiratory: normal respiratory effort, lungs clear to auscultation + tachypneic Cardiovascular: RRR, no murmur, no edema Heart Sounds: normal S1 and normal S2 Gastrointestinal (Abdomen): Abdomen distended, semifirm, tender with palpation in all 4 quadrants. Bowel sounds auscultated all 4 quadrants. Hematemesis with hortencia red blood approximately 200 mL during exam. Musculoskeletal: no cyanosis or clubbing, extremities motor strength 5/5 Skin: no rashes, warm and dry Neurologic: PERRL, EOMI, accommodation nl, no face palsy, no dysarthria Psychiatric: Orientation: oriented to person and cooperative; + not oriented to place and + not oriented to time Results & Data Results & Data Vital Signs (Past 12 Hours) Vital Signs Temp Pulse Resp BP BP Pulse Ox O2 Del Method 07/03/23 20:35 82 26 H 108/60 100 07/03/23 20:30 83 28 H 105/66 100 07/03/23 20:25 90 29 H 110/69 100 07/03/23 20:20 103 H 28 H 107/88 100 07/03/23 20:16 109 H 32 H 82/45 L 100 07/03/23 20:10 85 21 91/58 L 100 07/03/23 20:05 82 15 91/57 L 100 07/03/23 20:00 85 17 94/58 L 98 07/03/23 19:55 88 50 H 102/57 L 99 07/03/23 19:50 82 25 H 103/57 L 99 07/03/23 19:47 87 35 H 103/57 L 98 07/03/23 19:35 89 21 84/53 L 99 07/03/23 19:30 85 22 89/60 L 99 07/03/23 19:25 89/52 L 07/03/23 19:20 99/60 L 07/03/23 20:24 36.6 C 87 34 H 107/88 100 07/03/23 20:00 36.6 C 83 20 94/58 L 100 07/03/23 19:45 36.5 C 90 24 84/53 L 98 07/03/23 19:15 110/59 L 07/03/23 19:15 84 19 100 07/03/23 19:21 99/60 L 07/03/23 19:10 79 16 99 07/03/23 19:10 106/65 07/03/23 19:05 111/69 07/03/23 19:05 76 13 100 07/03/23 19:00 87 23 99 07/03/23 19:00 109/78 07/03/23 18:59 115/78 07/03/23 18:59 78 19 100 07/03/23 18:55 70 14 100 07/03/23 18:55 116/73 07/03/23 18:50 73 22 128/73 100 Nasal Cannula 07/03/23 18:50 128/73 100 Nasal Cannula 07/03/23 18:45 100 H 31 H 110/60 100 Nasal Cannula 07/03/23 18:40 88 30 H 116/72 100 07/03/23 18:35 116/73 07/03/23 18:35 80 35 H 129/69 100 07/03/23 18:30 90 17 128/80 100 07/03/23 18:20 89 29 H 103/68 100 07/03/23 18:15 94 H 27 H 120/68 98 07/03/23 18:14 96 H 7 L 105/62 07/03/23 18:00 101 H 33 H 110/68 98 07/03/23 18:33 8 L 100 Nasal Cannula 07/03/23 18:28 36.1 C L 87 20 128/80 99 07/03/23 18:17 84 22 120/68 100 07/03/23 18:13 96 H 26 H 105/62 99 07/03/23 17:59 102 H 07/03/23 18:20 36.6 C 79/53 L O2 Flow Rate 07/03/23 20:35 07/03/23 20:30 07/03/23 20:25 07/03/23 20:20 07/03/23 20:16 07/03/23 20:10 07/03/23 20:05 07/03/23 20:00 07/03/23 19:55 07/03/23 19:50 07/03/23 19:47 07/03/23 19:35 07/03/23 19:30 07/03/23 19:25 07/03/23 19:20 07/03/23 20:24 07/03/23 20:00 4 07/03/23 19:45 4 07/03/23 19:15 07/03/23 19:15 07/03/23 19:21 07/03/23 19:10 07/03/23 19:10 07/03/23 19:05 07/03/23 19:05 07/03/23 19:00 07/03/23 19:00 07/03/23 18:59 07/03/23 18:59 07/03/23 18:55 07/03/23 18:55 07/03/23 18:50 2 07/03/23 18:50 07/03/23 18:45 2 07/03/23 18:40 07/03/23 18:35 07/03/23 18:35 07/03/23 18:30 07/03/23 18:20 07/03/23 18:15 07/03/23 18:14 07/03/23 18:00 07/03/23 18:33 2 07/03/23 18:28 2 07/03/23 18:17 07/03/23 18:13 07/03/23 17:59 07/03/23 18:20 Coding Level of Care Code 28394 CRITICAL CARE EA ADD 30M Diagnoses Hemorrhagic shock R57.8 End stage liver disease K72.10 Bleeding esophageal varices I85.01 Alcoholic cirrhosis K70.30 Hematemesis K92.0 Thrombocytopenia D69.6 Lactic acidosis E87.20
[2023-07-03 21:23] LABS: Troponin I High Sensitivity 9.3 pg/ml (0-20)
--- NOTE | 2023-07-03 21:30 | Gastrointestinal Consultation ---
Date of Consultation July 03, 2023 Assessment & Plan (1) Hematemesis: 58 year old man with alcoholic liver disease who supposedly is being evaluated for transplant. Continues active alcohol abuse. Vomited blood today. Likely variceal bleed. Possibly related to portal hypertensive gastropathy. Outside chance of ulcer disease. Plan emergent EGD. Procedure and risks discussed with son. Patient aware but not overtly participating in discussion. History of Present Illness Reason for Consultation: vomiing blood History of Present Illness 58 year old man with alcoholic liver disease apparently being evaluated for transplant here in [place] visiting and started vomiting blood. Presented to ER with hypotension, hemoglobin 7.6. Has had two episodes according to nurse of bright red hematemesis totaling about 600cc. Admittedly drinking beer today and drinks "a few cans" every day. Denies ever bleeding before. Has known varices and has had EGD in past but doesn't know what was found. Gets his care in [place]. Allergies Allergy/AdvReac Type Severity Reaction Status Date / Time No Known Allergies Allergy Unverified 07/03/23 19:47 Home Medications Medication Instructions Recorded Confirmed Type furosemide 40 mg tablet 40 mg PO QAM 07/03/23 07/03/23 History hydroxyzine HCl 25 mg tablet 25 mg PO HS PRN Sleep 07/03/23 07/03/23 History levothyroxine 100 mcg tablet 100 mcg PO DAILYBB 07/03/23 07/03/23 History multivitamin 1 tab PO QAM 07/03/23 07/03/23 History omega-3 fatty acids 1,000 mg 1,000 mg PO QAM 07/03/23 07/03/23 History capsule potassium chloride 8 mEq 8 meq PO BID 07/03/23 07/03/23 History tablet,extended release tamsulosin 0.4 mg capsule 0.4 mg PO HS 07/03/23 07/03/23 History Patient History Social History Smoking Status: Never smoker Preferred Language: Greek Feels Safe at Home: Yes Review of Systems Review of Systems: Unobtainable due to cognitive status Physical Exam Constitutional: + ill appearing and + lethargic Neck: trachea midline, no thyromegaly Respiratory: normal respiratory effort, lungs clear to auscultation Cardiovascular: RRR, no murmur, no edema Gastrointestinal (Abdomen): Inspection/Auscultation: abdomen normal to inspection and normal bowel sounds Percussion/Palpation: + abdomen tender Results & Data Vital Signs (Past 12 Hours) Vital Signs Temp Pulse Resp BP BP Pulse Ox O2 Del Method 07/03/23 21:10 89 25 H 100 07/03/23 21:10 117/65 07/03/23 21:09 113/69 07/03/23 21:09 93 H 30 H 100 Nasal Cannula 07/03/23 21:02 135/67 07/03/23 21:02 122 H 46 H 96 07/03/23 21:00 130 H 25 H 99 07/03/23 20:55 121/71 07/03/23 20:55 86 45 H 100 07/03/23 20:50 82 44 H 100 07/03/23 20:50 111/63 07/03/23 20:45 79 14 100 07/03/23 20:45 95/58 L 07/03/23 20:40 79 21 100 07/03/23 20:40 99/59 L 07/03/23 20:35 82 26 H 108/60 100 07/03/23 20:30 83 28 H 105/66 100 07/03/23 20:25 90 29 H 110/69 100 07/03/23 20:20 103 H 28 H 107/88 100 07/03/23 20:16 109 H 32 H 82/45 L 100 07/03/23 20:10 85 21 91/58 L 100 07/03/23 20:05 82 15 91/57 L 100 07/03/23 20:00 85 17 94/58 L 98 07/03/23 19:55 88 50 H 102/57 L 99 07/03/23 19:50 82 25 H 103/57 L 99 07/03/23 19:47 87 35 H 103/57 L 98 07/03/23 19:35 89 21 84/53 L 99 07/03/23 19:30 85 22 89/60 L 99 07/03/23 19:25 89/52 L 07/03/23 19:20 99/60 L 07/03/23 20:24 36.6 C 87 34 H 107/88 100 07/03/23 21:00 Nasal Cannula 07/03/23 20:00 36.6 C 83 20 94/58 L 100 07/03/23 19:45 36.5 C 90 24 84/53 L 98 07/03/23 19:15 110/59 L 07/03/23 19:15 84 19 100 07/03/23 19:21 99/60 L 07/03/23 19:10 79 16 99 07/03/23 19:10 106/65 07/03/23 19:05 111/69 07/03/23 19:05 76 13 100 07/03/23 19:00 87 23 99 07/03/23 19:00 109/78 07/03/23 18:59 115/78 07/03/23 18:59 78 19 100 07/03/23 18:55 70 14 100 07/03/23 18:55 116/73 07/03/23 18:50 73 22 128/73 100 Nasal Cannula 07/03/23 18:50 128/73 100 Nasal Cannula 07/03/23 18:45 100 H 31 H 110/60 100 Nasal Cannula 07/03/23 18:40 88 30 H 116/72 100 07/03/23 18:35 116/73 07/03/23 18:35 80 35 H 129/69 100 07/03/23 18:30 90 17 128/80 100 07/03/23 18:20 89 29 H 103/68 100 07/03/23 18:15 94 H 27 H 120/68 98 07/03/23 18:14 96 H 7 L 105/62 07/03/23 18:00 101 H 33 H 110/68 98 07/03/23 18:33 8 L 100 Nasal Cannula 07/03/23 18:28 36.1 C L 87 20 128/80 99 07/03/23 18:17 84 22 120/68 100 07/03/23 18:13 96 H 26 H 105/62 99 07/03/23 17:59 102 H 07/03/23 18:20 36.6 C 79/53 L O2 Flow Rate 07/03/23 21:10 07/03/23 21:10 07/03/23 21:09 07/03/23 21:09 4 07/03/23 21:02 07/03/23 21:02 07/03/23 21:00 07/03/23 20:55 07/03/23 20:55 07/03/23 20:50 07/03/23 20:50 07/03/23 20:45 07/03/23 20:45 07/03/23 20:40 07/03/23 20:40 07/03/23 20:35 07/03/23 20:30 07/03/23 20:25 07/03/23 20:20 07/03/23 20:16 07/03/23 20:10 07/03/23 20:05 07/03/23 20:00 07/03/23 19:55 07/03/23 19:50 07/03/23 19:47 07/03/23 19:35 07/03/23 19:30 07/03/23 19:25 07/03/23 19:20 07/03/23 20:24 07/03/23 21:00 07/03/23 20:00 4 07/03/23 19:45 4 07/03/23 19:15 07/03/23 19:15 07/03/23 19:21 07/03/23 19:10 07/03/23 19:10 07/03/23 19:05 07/03/23 19:05 07/03/23 19:00 07/03/23 19:00 07/03/23 18:59 07/03/23 18:59 07/03/23 18:55 07/03/23 18:55 07/03/23 18:50 2 07/03/23 18:50 07/03/23 18:45 2 07/03/23 18:40 07/03/23 18:35 07/03/23 18:35 07/03/23 18:30 07/03/23 18:20 07/03/23 18:15 07/03/23 18:14 07/03/23 18:00 07/03/23 18:33 2 07/03/23 18:28 2 07/03/23 18:17 07/03/23 18:13 07/03/23 17:59 07/03/23 18:20 Laboratory Results 07/03/23 07/03/23 07/03/23 Range/Units 21:15 20:57 19:35 WBC (4.8-10.8) K/ul RBC (4.70-6.10) M/uL Hgb (14.0-18.0) g/dl POC Hgb (14.0-18.0) g/dl Hct (42.0-52.0) % POC Hct (42-52) % MCV (80.0-100.0) fL MCH (25.0-34.0) pg MCHC (32.0-36.0) g/dL RDW Std Deviation (36.4-46.3) fL RDW Coeff of Mp (11.5-14.5) % Plt Count (130-400) K/uL MPV (9.4-12.4) fL Immature Gran % (Auto) % Neut % (Auto) % Lymph % (Auto) % [place] % (Auto) % Eos % (Auto) % Baso % (Auto) % Neut # (Auto) (1.40-6.50) K/uL Lymph # (Auto) (1.20-3.40) K/uL [place] # (Auto) (0.11-0.59) K/uL Eos # (Auto) (0.00-0.50) K/uL Baso # (Auto) (0.00-0.20) K/uL Immature Gran # (Auto) (0.01-0.20) K/uL Platelet Estimate (Normal) Anisocytosis Ovalocytes PT (9.0-12.0) Seconds INR (0.9-1.1) APTT (21.0-31.0) Seconds PTT Ratio Fibrinogen Pending VBG pH (7.36-7.41) VBG pCO2 (38-50) mmHg VBG pO2 mmHg VBG HCO3 mmol/L VBG O2 Saturation % VBG Base Excess mEq/L POC Sodium (135-144) mmol/L Sodium (136-145) mmol/L POC Potassium (3.3-5.0) mmol/L Potassium (3.5-5.1) mmol/L POC Chloride (101-112) mmol/L Chloride (98-107) mmol/L Carbon Dioxide (21-32) mmol/L POC Total CO2 (24-31) mmol/L Anion Gap (3-11) POC Anion Gap (16-25) mmol/L POC BUN (7-18) mg/dl BUN (6-23) mg/dl Creatinine (0.6-1.4) mg/dl POC Creatinine (0.6-1.3) mg/dl Est Cr Clr Drug Dosing ml/min Est GFR ( Amer) ml/min Est GFR (Non-Af Amer) ml/min BUN/Creatinine Ratio (10-20) Glucose (70-99(Fasting)) mg/dl POC Glucose (other) (70-99) mg/dl Lactate Pending (0.4-2.0) mmol/L Calcium (8.6-10.3) mg/dl POC Ioniz Calcium Roddy (1.12-1.32) mmol/l Total Bilirubin (0.2-1.0) mg/dl AST (13-39) U/L ALT (7-52) U/L Alkaline Phosphatase (34-104) U/L Ammonia (18-72) umol/L Troponin I High Sens (0-20) pg/ml Total Protein (6.0-8.3) gm/dl Albumin (3.4-5.0) gm/dl Globulin (2.5-4.0) gm/dl Albumin/Globulin Ratio (0.9-2) Lipase (11-82) U/L Urine Color Pending Urine Appearance Pending Urine pH Pending Ur Specific [place] Pending Urine Protein Pending Urine Glucose (UA) Pending Urine Ketones Pending Urine Blood Pending Urine Nitrite Pending Urine Bilirubin Pending Urine Urobilinogen Pending Ur Leukocyte Esterase Pending Ethyl Alcohol mg/dL (<10.0) mg/dl SARS-CoV-2, RNA, NAAT (NEGATIVE) Blood Type Blood Type Recheck Antibody Screen Crossmatch 07/03/23 07/03/23 07/03/23 Range/Units 18:36 18:30 18:02 WBC (4.8-10.8) K/ul RBC (4.70-6.10) M/uL Hgb (14.0-18.0) g/dl POC Hgb 8.2 L (14.0-18.0) g/dl Hct (42.0-52.0) % POC Hct 24 L (42-52) % MCV (80.0-100.0) fL MCH (25.0-34.0) pg MCHC (32.0-36.0) g/dL RDW Std Deviation (36.4-46.3) fL RDW Coeff of Mp (11.5-14.5) % Plt Count (130-400) K/uL MPV (9.4-12.4) fL Immature Gran % (Auto) % Neut % (Auto) % Lymph % (Auto) % [place] % (Auto) % Eos % (Auto) % Baso % (Auto) % Neut # (Auto) (1.40-6.50) K/uL Lymph # (Auto) (1.20-3.40) K/uL [place] # (Auto) (0.11-0.59) K/uL Eos # (Auto) (0.00-0.50) K/uL Baso # (Auto) (0.00-0.20) K/uL Immature Gran # (Auto) (0.01-0.20) K/uL Platelet Estimate (Normal) Anisocytosis Ovalocytes PT (9.0-12.0) Seconds INR (0.9-1.1) APTT (21.0-31.0) Seconds PTT Ratio Fibrinogen VBG pH (7.36-7.41) VBG pCO2 (38-50) mmHg VBG pO2 mmHg VBG HCO3 mmol/L VBG O2 Saturation % VBG Base Excess mEq/L POC Sodium 137 (135-144) mmol/L Sodium (136-145) mmol/L POC Potassium 2.8 L (3.3-5.0) mmol/L Potassium (3.5-5.1) mmol/L POC Chloride 95 L (101-112) mmol/L Chloride (98-107) mmol/L Carbon Dioxide (21-32) mmol/L POC Total CO2 23 L (24-31) mmol/L Anion Gap (3-11) POC Anion Gap 22.0 (16-25) mmol/L POC BUN 9 (7-18) mg/dl BUN (6-23) mg/dl Creatinine (0.6-1.4) mg/dl POC Creatinine 1.3 (0.6-1.3) mg/dl Est Cr Clr Drug Dosing ml/min Est GFR ( Amer) ml/min Est GFR (Non-Af Amer) ml/min BUN/Creatinine Ratio (10-20) Glucose (70-99(Fasting)) mg/dl POC Glucose (other) 110 H (70-99) mg/dl Lactate (0.4-2.0) mmol/L Calcium (8.6-10.3) mg/dl POC Ioniz Calcium Roddy 1.01 L (1.12-1.32) mmol/l Total Bilirubin (0.2-1.0) mg/dl AST (13-39) U/L ALT (7-52) U/L Alkaline Phosphatase (34-104) U/L Ammonia (18-72) umol/L Troponin I High Sens (0-20) pg/ml Total Protein (6.0-8.3) gm/dl Albumin (3.4-5.0) gm/dl Globulin (2.5-4.0) gm/dl Albumin/Globulin Ratio (0.9-2) Lipase (11-82) U/L Urine Color Urine Appearance Urine pH Ur Specific [place] Urine Protein Urine Glucose (UA) Urine Ketones Urine Blood Urine Nitrite Urine Bilirubin Urine Urobilinogen Ur Leukocyte Esterase Ethyl Alcohol mg/dL (<10.0) mg/dl SARS-CoV-2, RNA, NAAT NEGATIVE (NEGATIVE) Blood Type Blood Type Recheck O Positive Antibody Screen Crossmatch 07/03/23 07/03/23 07/03/23 Range/Units 18:01 18:01 18:01 WBC (4.8-10.8) K/ul RBC (4.70-6.10) M/uL Hgb (14.0-18.0) g/dl POC Hgb (14.0-18.0) g/dl Hct (42.0-52.0) % POC Hct (42-52) % MCV (80.0-100.0) fL MCH (25.0-34.0) pg MCHC (32.0-36.0) g/dL RDW Std Deviation (36.4-46.3) fL RDW Coeff of Mp (11.5-14.5) % Plt Count (130-400) K/uL MPV (9.4-12.4) fL Immature Gran % (Auto) % Neut % (Auto) % Lymph % (Auto) % [place] % (Auto) % Eos % (Auto) % Baso % (Auto) % Neut # (Auto) (1.40-6.50) K/uL Lymph # (Auto) (1.20-3.40) K/uL [place] # (Auto) (0.11-0.59) K/uL Eos # (Auto) (0.00-0.50) K/uL Baso # (Auto) (0.00-0.20) K/uL Immature Gran # (Auto) (0.01-0.20) K/uL Platelet Estimate (Normal) Anisocytosis Ovalocytes PT (9.0-12.0) Seconds INR (0.9-1.1) APTT (21.0-31.0) Seconds PTT Ratio Fibrinogen VBG pH 7.44 H (7.36-7.41) VBG pCO2 33 L (38-50) mmHg VBG pO2 51 mmHg VBG HCO3 22 mmol/L VBG O2 Saturation 76.3 % VBG Base Excess -1.1 mEq/L POC Sodium (135-144) mmol/L Sodium (136-145) mmol/L POC Potassium (3.3-5.0) mmol/L Potassium (3.5-5.1) mmol/L POC Chloride (101-112) mmol/L Chloride (98-107) mmol/L Carbon Dioxide (21-32) mmol/L POC Total CO2 (24-31) mmol/L Anion Gap (3-11) POC Anion Gap (16-25) mmol/L POC BUN (7-18) mg/dl BUN (6-23) mg/dl Creatinine (0.6-1.4) mg/dl POC Creatinine (0.6-1.3) mg/dl Est Cr Clr Drug Dosing ml/min Est GFR ( Amer) ml/min Est GFR (Non-Af Amer) ml/min BUN/Creatinine Ratio (10-20) Glucose (70-99(Fasting)) mg/dl POC Glucose (other) (70-99) mg/dl Lactate (0.4-2.0) mmol/L Calcium (8.6-10.3) mg/dl POC Ioniz Calcium Roddy (1.12-1.32) mmol/l Total Bilirubin (0.2-1.0) mg/dl AST (13-39) U/L ALT (7-52) U/L Alkaline Phosphatase (34-104) U/L Ammonia 84.0 H (18-72) umol/L Troponin I High Sens (0-20) pg/ml Total Protein (6.0-8.3) gm/dl Albumin (3.4-5.0) gm/dl Globulin (2.5-4.0) gm/dl Albumin/Globulin Ratio (0.9-2) Lipase (11-82) U/L Urine Color Urine Appearance Urine pH Ur Specific [place] Urine Protein Urine Glucose (UA) Urine Ketones Urine Blood Urine Nitrite Urine Bilirubin Urine Urobilinogen Ur Leukocyte Esterase Ethyl Alcohol mg/dL 215.2 H (<10.0) mg/dl SARS-CoV-2, RNA, NAAT (NEGATIVE) Blood Type Blood Type Recheck Antibody Screen Crossmatch 07/03/23 07/03/23 07/03/23 Range/Units 18:01 18:01 18:01 WBC (4.8-10.8) K/ul RBC (4.70-6.10) M/uL Hgb (14.0-18.0) g/dl POC Hgb (14.0-18.0) g/dl Hct (42.0-52.0) % POC Hct (42-52) % MCV (80.0-100.0) fL MCH (25.0-34.0) pg MCHC (32.0-36.0) g/dL RDW Std Deviation (36.4-46.3) fL RDW Coeff of Mp (11.5-14.5) % Plt Count (130-400) K/uL MPV (9.4-12.4) fL Immature Gran % (Auto) % Neut % (Auto) % Lymph % (Auto) % [place] % (Auto) % Eos % (Auto) % Baso % (Auto) % Neut # (Auto) (1.40-6.50) K/uL Lymph # (Auto) (1.20-3.40) K/uL [place] # (Auto) (0.11-0.59) K/uL Eos # (Auto) (0.00-0.50) K/uL Baso # (Auto) (0.00-0.20) K/uL Immature Gran # (Auto) (0.01-0.20) K/uL Platelet Estimate (Normal) Anisocytosis Ovalocytes PT 17.9 H (9.0-12.0) Seconds INR 1.7 H (0.9-1.1) APTT 29.6 (21.0-31.0) Seconds PTT Ratio 1.0 Fibrinogen VBG pH (7.36-7.41) VBG pCO2 (38-50) mmHg VBG pO2 mmHg VBG HCO3 mmol/L VBG O2 Saturation % VBG Base Excess mEq/L POC Sodium (135-144) mmol/L Sodium 133 L (136-145) mmol/L POC Potassium (3.3-5.0) mmol/L Potassium 2.7 L (3.5-5.1) mmol/L POC Chloride (101-112) mmol/L Chloride 96 L (98-107) mmol/L Carbon Dioxide 24 (21-32) mmol/L POC Total CO2 (24-31) mmol/L Anion Gap 13 H (3-11) POC Anion Gap (16-25) mmol/L POC BUN (7-18) mg/dl BUN 11 (6-23) mg/dl Creatinine 0.81 (0.6-1.4) mg/dl POC Creatinine (0.6-1.3) mg/dl Est Cr Clr Drug Dosing 74.9 ml/min Est GFR ( Amer) 114.3 ml/min Est GFR (Non-Af Amer) 98.7 ml/min BUN/Creatinine Ratio 13.6 (10-20) Glucose 106 H (70-99(Fasting)) mg/dl POC Glucose (other) (70-99) mg/dl Lactate 8.4 H* (0.4-2.0) mmol/L Calcium 8.6 (8.6-10.3) mg/dl POC Ioniz Calcium Roddy (1.12-1.32) mmol/l Total Bilirubin 4.0 H (0.2-1.0) mg/dl AST 195 H (13-39) U/L ALT 44 (7-52) U/L Alkaline Phosphatase 151 H (34-104) U/L Ammonia (18-72) umol/L Troponin I High Sens 9.3 (0-20) pg/ml Total Protein 7.2 (6.0-8.3) gm/dl Albumin 2.9 L (3.4-5.0) gm/dl Globulin 4.3 H (2.5-4.0) gm/dl Albumin/Globulin Ratio 0.7 L (0.9-2) Lipase 132 H (11-82) U/L Urine Color Urine Appearance Urine pH Ur Specific [place] Urine Protein Urine Glucose (UA) Urine Ketones Urine Blood Urine Nitrite Urine Bilirubin Urine Urobilinogen Ur Leukocyte Esterase Ethyl Alcohol mg/dL (<10.0) mg/dl SARS-CoV-2, RNA, NAAT (NEGATIVE) Blood Type Blood Type Recheck Antibody Screen Crossmatch 07/03/23 07/03/23 Range/Units 18:01 18:01 WBC 3.82 L (4.8-10.8) K/ul RBC 2.28 L (4.70-6.10) M/uL Hgb 7.6 L (14.0-18.0) g/dl POC Hgb (14.0-18.0) g/dl Hct 23.3 L (42.0-52.0) % POC Hct (42-52) % MCV 102.2 H (80.0-100.0) fL MCH 33.3 (25.0-34.0) pg MCHC 32.6 (32.0-36.0) g/dL RDW Std Deviation 65.7 H (36.4-46.3) fL RDW Coeff of Mp 17.4 H (11.5-14.5) % Plt Count 42 L (130-400) K/uL MPV 9.8 (9.4-12.4) fL Immature Gran % (Auto) 0.3 % Neut % (Auto) 35.3 % Lymph % (Auto) 45.8 % [place] % (Auto) 12.3 % Eos % (Auto) 4.7 % Baso % (Auto) 1.6 % Neut # (Auto) 1.35 L (1.40-6.50) K/uL Lymph # (Auto) 1.75 (1.20-3.40) K/uL [place] # (Auto) 0.47 (0.11-0.59) K/uL Eos # (Auto) 0.18 (0.00-0.50) K/uL Baso # (Auto) 0.06 (0.00-0.20) K/uL Immature Gran # (Auto) 0.01 (0.01-0.20) K/uL Platelet Estimate Decreased L (Normal) Anisocytosis Present Ovalocytes 1+ PT (9.0-12.0) Seconds INR (0.9-1.1) APTT (21.0-31.0) Seconds PTT Ratio Fibrinogen VBG pH (7.36-7.41) VBG pCO2 (38-50) mmHg VBG pO2 mmHg VBG HCO3 mmol/L VBG O2 Saturation % VBG Base Excess mEq/L POC Sodium (135-144) mmol/L Sodium (136-145) mmol/L POC Potassium (3.3-5.0) mmol/L Potassium (3.5-5.1) mmol/L POC Chloride (101-112) mmol/L Chloride (98-107) mmol/L Carbon Dioxide (21-32) mmol/L POC Total CO2 (24-31) mmol/L Anion Gap (3-11) POC Anion Gap (16-25) mmol/L POC BUN (7-18) mg/dl BUN (6-23) mg/dl Creatinine (0.6-1.4) mg/dl POC Creatinine (0.6-1.3) mg/dl Est Cr Clr Drug Dosing ml/min Est GFR ( Amer) ml/min Est GFR (Non-Af Amer) ml/min BUN/Creatinine Ratio (10-20) Glucose (70-99(Fasting)) mg/dl POC Glucose (other) (70-99) mg/dl Lactate (0.4-2.0) mmol/L Calcium (8.6-10.3) mg/dl POC Ioniz Calcium Roddy (1.12-1.32) mmol/l Total Bilirubin (0.2-1.0) mg/dl AST (13-39) U/L ALT (7-52) U/L Alkaline Phosphatase (34-104) U/L Ammonia (18-72) umol/L Troponin I High Sens (0-20) pg/ml Total Protein (6.0-8.3) gm/dl Albumin (3.4-5.0) gm/dl Globulin (2.5-4.0) gm/dl Albumin/Globulin Ratio (0.9-2) Lipase (11-82) U/L Urine Color Urine Appearance Urine pH Ur Specific [place] Urine Protein Urine Glucose (UA) Urine Ketones Urine Blood Urine Nitrite Urine Bilirubin Urine Urobilinogen Ur Leukocyte Esterase Ethyl Alcohol mg/dL (<10.0) mg/dl SARS-CoV-2, RNA, NAAT (NEGATIVE) Blood Type O Positive Blood Type Recheck Antibody Screen NEGATIVE Crossmatch See Detail Diagnostic Findings Abdomen/Pelvis CT 07/03/23 17:59 CT OF THE ABDOMEN AND PELVIS WITH CONTRAST CLINICAL HISTORY: Abdominal pain. Hematemesis. COMPARISON STUDY: None. TECHNIQUE: Following IV administration of 87 mL of Optiray, axial images of the abdomen and pelvis were obtained from the lung bases to the proximal femurs. Images were reviewed in the axial, sagittal, and coronal planes. IV contrast was administered without complication. Automated exposure control was utilized for the study. A dose lowering technique was utilized adhering to the principles of ALARA. CT DOSE: 1295.64 mGy.cm FINDINGS: An 8 mm solid noncalcified left lower lobe pulmonary nodule on image 37 of 389 is noted. There is bilateral gynecomastia. No pneumatosis, free air or portal venous gas is present. Extensive paraesophageal and esophageal varices are present. Hyperdense material within the stomach is noted. The liver is cirrhotic. Heterogeneity of the liver is likely due to cirrhosis. No well- defined hepatic lesions are identified although sensitivity for detection of hypervascular lesions is diminished on this portal venous phase exam. The main, left and right portal veins are patent. There is no biliary ductal dilatation status post cholecystectomy. There are diverticula of the second and third portions of the duodenum. The spleen is enlarged. Additional abdominal and pelvic varices are present. Adrenal glands, kidneys and pancreas are unremarkable. There is no hydronephrosis. There is no pancreatic ductal dilatation. Moderate right colon wall thickening is noted with pericolonic stranding. A small amount of ascites within the abdomen is present. There is also rectal wall thickening. There is no evidence for a bowel obstruction. Major vasculature is patent. Avascular necrosis of the bilateral femoral heads without collapse is noted. IMPRESSION: 1. Cirrhosis with manifestations of portal hypertension including paraesophageal/esophageal varices, splenomegaly and a small amount of ascites. 2. Mixed attenuation contents within the stomach. This could reflect blood products intermixed with ingested contents. 3. Moderate right colon wall thickening with pericolonic stranding and fluid. Mild rectal wall thickening. The findings are likely related to portal hypertension however a nonspecific proctocolitis could appear similar. 4. No bowel obstruction. Normal appendix. 5. 8 mm left lower lobe pulmonary nodule. A follow-up chest CT in 6 months to ensure stability is recommended. 6. Avascular necrosis of the bilateral femoral heads without collapse. ACT 112: Negative or not required by law. Electronically signed by: Jon Torres M.D. 07/03/2023 6:42 PM
[2023-07-03 21:49] LABS: Appearance Urine Clear (Clear); Bilirubin Urine Negative (Negative); Blood Urine Negative (Negative); Color Urine Yellow; Glucose Urine UA Negative (Negative); Ketones Urine Negative (Negative); Leukocyte Esterase Urine Negative (Negative); Nitrite Urine Negative (Negative); Protein Urine Negative (Negative); Specific Gravity Urine 1.045 (1.000-1.030); Urobilinogen Urine Negative (Negative)
[2023-07-03] MEDS ORDERED: SUCCINYLCHOLINE 100MG/5ML SYR IV ONE (22:01)
[2023-07-03] MEDS ORDERED: PROPOFOL IV EMULSION 10 MG/ML 20 ML VIAL IV ONE (22:01)
[2023-07-03] MEDS ORDERED: PHENYLEPHRINE HCL 10 MG/ML VIAL ONE (22:09)
--- NOTE | 2023-07-03 22:14 | Anesthesiology Consultation ---
Date of Service July 03, 2023 Assessment & Plan ASA [id number] Proposed Anesthesia Anesthesia Type: General Risk / Benefits Reviewed With: PT / POA / Parent / Guardian, Accepts Plan and Informed Consent Obtained History Surgery Operation Date: 07/03/23 22:00 Proposed Procedures p Esophagogastroduodenoscopy - Jerilyn Carvajal Jr, MD Height/Weight Height: 5 ft 7 in Weight: 52.6 kg Allergies Allergy/AdvReac Type Severity Reaction Status Date / Time No Known Allergies Allergy Unverified 07/03/23 19:47 Medications Home Medications Medication Instructions Recorded Confirmed Last Taken furosemide 40 mg tablet 40 mg PO QAM 07/03/23 07/03/23 07/03/23 hydroxyzine HCl 25 mg tablet 25 mg PO HS PRN Sleep 07/03/23 07/03/23 Unknown levothyroxine 100 mcg tablet 100 mcg PO DAILYBB 07/03/23 07/03/23 Unknown multivitamin 1 tab PO QAM 07/03/23 07/03/23 07/03/23 omega-3 fatty acids 1,000 mg 1,000 mg PO QAM 07/03/23 07/03/23 07/03/23 capsule potassium chloride 8 mEq 8 meq PO BID 07/03/23 07/03/23 07/03/23 tablet,extended release am tamsulosin 0.4 mg capsule 0.4 mg PO HS 07/03/23 07/03/23 07/02/23 Active Medications Generic Name Dose Route Start Last Admin Trade Name Freq PRN Reason Stop Dose Admin Octreotide Acetate 500 mcg/ 100.5 mls @ 10.05 mls/hr 07/03/23 18:00 07/03/23 18:31 Sodium Chloride IV 08/02/23 17:59 50 mcg/hr .Q10H CAROL 10.1 mls/hr Administration 50 MCG/HR Pantoprazole Sodium 40 mg/ 100 mls @ 20 mls/hr 07/03/23 18:30 07/03/23 18:31 Dextrose IV 08/02/23 18:29 8 mg/hr Q5H CAROL 20 mls/hr Administration 8 MG/HR NPO Date Last Intake of Fluids: 07/03/23 Time Last Intake of Fluids: 00:00 Date Last Intake of Solids: 07/03/23 Time Last Intake of Solids: 00:00 Exercise / Class Metabolic Activity II 4-5 Yardwork/Stairs/Walk up hill Past Anesthesia History No Hx of Anesthesia Complications and No Family Hx of Anesthesia Complications History of PONV No Hx of PONV and No Hx of Motion Sickness Social History Smoking Status: Never smoker Review of Systems denies fever/cough/ colds/ chest pain/ SOB/ ANTHONY denies ANTHONY Physical Exam Vital Signs Last Vital Signs Temp 36.7 C 07/03/23 21:48 Pulse 78 07/03/23 21:55 Resp 18 07/03/23 21:48 BP 105/62 07/03/23 21:48 Pulse Ox 100 07/03/23 21:48 O2 Del Method Nasal Cannula 07/03/23 21:09 O2 Flow Rate 4 07/03/23 21:48 ENMT Mouth: no TMJ abnormality and no dentition abnormality Thyromental Distance: > or= 3.5 Finger Breadths Mallampati Class: II Neck neck extension not limited Respiratory normal respiratory effort; no respiratory distress Auscultation: lungs clear to auscultation bilaterally Cardiovascular Rate/Rhythm: regular rate and regular rhythm Neurologic moves all extremities Psychiatric Orientation: alert and oriented x 3 Testing Laboratory Results 07/03/23 18:01 07/03/23 18:01 PT 17.9 Seconds (9.0-12.0) H 07/03/23 18:01 INR 1.7 (0.9-1.1) H 07/03/23 18:01 APTT 29.6 Seconds (21.0-31.0) 07/03/23 18:01 Urine Color Yellow 07/03/23 21:15 Urine Appearance Clear (Clear) 07/03/23 21:15 Urine pH 6.0 (4.5-7.5) 07/03/23 21:15 Ur Specific [place] 1.045 (1.000-1.030) H 07/03/23 21:15 Urine Protein Negative (Negative) 07/03/23 21:15 Urine Glucose (UA) Negative (Negative) 07/03/23 21:15 Urine Ketones Negative (Negative) 07/03/23 21:15 Urine Nitrite Negative (Negative) 07/03/23 21:15 Ur Leukocyte Esterase Negative (Negative) 07/03/23 21:15 Blood Type O Positive 07/03/23 18:01 Antibody Screen NEGATIVE 07/03/23 18:01 07/03/23 18:02 POC Glucose (other) 110 H
[2023-07-03 22:30] LABS: Fibrinogen 131 mg/dl (184-400)
[2023-07-03] MEDS ORDERED: fentaNYL citrate PF 100 MCG/2 ML VIAL ONE (22:42)
[2023-07-03] MEDS ORDERED: PHENYLEPHRINE 100MCG/ML 10ML SYR ONE (22:50)
[2023-07-03] MEDS ORDERED: CISATRACURIUM BESYLATE IV SOLN 2 MG/ML 10 ML VIAL IV ONE (23:03)
--- NOTE | 2023-07-03 23:22 | GI REPORT ---
Patient Name: Gerald Irvin Procedure Date: 07/03/2023 10:14 PM Date of : 1965 Admit Type: Emergency Department Age: 58 Gender: Male Attending MD: Jerilyn Carvajal MD, Procedure: Upper GI endoscopy Providers: Jerilyn Carvajal MD Referring MD: Referred Self Indications: Hematemesis Medicines: General Anesthesia Complications: No immediate complications. Estimated Blood Loss: Estimated blood loss: none. Procedure: Pre-Anesthesia Assessment: - Prior to the procedure, a History and Physical was performed, and patient medications and allergies were reviewed. The patient's tolerance of previous anesthesia was also reviewed. The risks and benefits of the procedure and the sedation options and risks were discussed with the patient. All questions were answered, and informed consent was obtained. Prior Anticoagulants: The patient has taken no anticoagulant or antiplatelet agents. ASA Grade Assessment: IV - A patient with severe systemic disease that is a constant threat to life. After reviewing the risks and benefits, the patient was deemed in satisfactory condition to undergo the procedure. After obtaining informed consent, the endoscope was passed under direct vision. Throughout the procedure, the patient's blood pressure, pulse, and oxygen saturations were monitored continuously. The Endoscope was introduced through the mouth, and advanced to the second part of duodenum. The upper GI endoscopy was accomplished without difficulty. The patient tolerated the procedure well. Findings: Grade III varices were found in the middle third of the esophagus and in the lower third of the esophagus. In the upper middle of the esophagus was a varix with a "nipple sign". Attempt was made to place a band and the varix started bleeding rapidly. At that point the band delivery device dislodged from the scope and eventually fell into the pool of blood in the stomach. A second delivery device was placed on the endoscope and with a lot of irrigation and suction we were successful in treatment. One band was successfully placed with cessation of active bleeding immediately. The site was irrigated and no further bleeding was seen. Red blood was found in the gastric fundus, in the gastric body and in the gastric antrum. The exam of the stomach was otherwise normal. Red blood was found in the duodenal bulb and in the second portion of the duodenum. The exam of the duodenum was otherwise normal. Impression: - Grade III esophageal varices. Incompletely eradicated. Banded. - Red blood in the gastric fundus, in the gastric body and in the gastric antrum. - Blood in the duodenal bulb and in the second portion of the duodenum. - No specimens collected. Recommendation: - Patient has a contact number available for emergencies. The signs and symptoms of potential delayed complications were discussed with the patient. Return to normal activities tomorrow. Written discharge instructions were provided to the patient. - NPO. - Admit the patient to ICU for ongoing care. Jerilyn Carvajal MD 07/03/2023 11:21:50 PM Note Initiated On: 07/03/2023 10:14 PM Number of Addenda: 0 I attest to the content of the Intraoperative Record and orders documented therein, exceptions below {[id number]}
--- NOTE | 2023-07-03 23:43 | History & Physical Report ---
Date of Service July 03, 2023 Assessment & Plan (1) Hemorrhagic shock: Plan: 58-year-old male history of liver cirrhosis, ongoing alcoholism ,hypothyroidism, BPH comes because of acute upper GI bleed and found to hypotensive. Hemorrhagic shock Hypotension Acute grade 3 variceal bleeding S/p banding s/p 6 years of PRBCs. 2 units of FFP. 2 units of cryo and iv vitamin k We will follow closely H&H Monitor closely hemodynamics in ICU Continue PPI drip and Sandostatin drip N.p.o. Appreciate GI and critical care help Awaiting transfer to [facility] Alcoholism Alcohol drawl protocol as per ICU Hepatic encephalopathy Lactulose enemas Liver cirrhosis Monitor for volume overload Empiric Rocephin Hypokalemia and hypomagnesia Replace Follow repeat labs Elevated lactic acidosis From liver cirrhosis and ongoing hemorrhagic shock Improving thrombocytopenia f/u labs DVT prophylax SCDs Disposition close monitoring in the ICU Awaiting transfer to [place] History of Present Illness Chief Complaint: Acute GI bleed Primary Care Provider: NO PCP 58-year-old male history of liver cirrhosis, ongoing alcoholism ,hypothyroidism, BPH comes because of acute upper GI bleed. Patient is visiting [place] to son's place. He started vomiting blood and was brought to the ER. He has 2 more episodes of bloody vomiting in the ER first around 200 mill and second time around 400 mL. Was started on Protonix drip and Sandostatin drip. So far received 6 units of PRBCs, 2 units of FFP, 2 units of cryo and also IV vitamin K. Patient was recently in the [facility] system at [place] as per the son when he was intubated for aspiration pneumonitis. Initial plan was to transfer him back to [facility] and seem to be accepted but waiting for the bed. GI emergently did EGD and found to have bleeding grade 3 esophageal varices and s/p banding and seems no active bleeding observed after intervention. Patient currently in the ICU waiting to be transferred. Patient is somewhat lethargic. Knows his name. Complains of pain in belly. Could not get much history from the patient. Son also does not know much history of his father. Past medical history. Unknown at this time Past surgical history. Unknown at this time. Social history. Constant drinks alcohol as per son. Chews tobacco as per son. Family history. Unknown at this time Allergies Allergy/AdvReac Type Severity Reaction Status Date / Time No Known Allergies Allergy Unverified 07/03/23 19:47 Home Medications Medication Instructions Recorded Confirmed Type furosemide 40 mg tablet 40 mg PO QAM 07/03/23 07/03/23 History hydroxyzine HCl 25 mg tablet 25 mg PO HS PRN Sleep 07/03/23 07/03/23 History levothyroxine 100 mcg tablet 100 mcg PO DAILYBB 07/03/23 07/03/23 History multivitamin 1 tab PO QAM 07/03/23 07/03/23 History omega-3 fatty acids 1,000 mg 1,000 mg PO QAM 07/03/23 07/03/23 History capsule potassium chloride 8 mEq 8 meq PO BID 07/03/23 07/03/23 History tablet,extended release tamsulosin 0.4 mg capsule 0.4 mg PO HS 07/03/23 07/03/23 History Past Med/Surg History Social History Smoking Status: Never smoker Tobacco Type: Smokeless Tobacco (Dip or Chew) Second Hand Exposure: No; Do You Dip or Chew Tobacco: Yes; Hx Alcohol Use: Yes Alcohol type: beer and hard liquor Hx Substance Use: No Preferred Language: Sudanese Communication Ability: Effective Dye Tub Tender Required: No Beliefs That Will Affect Care: Restorationist Current Living Situation: Significant Other Other Information That Helps Us Care for You: No Feels Safe at Home: No Is there a partner from a previous relationship who is making you feel unsafe now?: No Any Concerns about Your Family Situation: No Would You Like to Speak to Someone About Your Situation: No Safety Concerns: Feels Safe At This Time Assistive Devices: None Review of Systems Review of Systems: Unobtainable due to reduced consciousness Physical Exam Physical Exam: General- Lethargic. Head- atraumatic Eyes- PERRL, no pallor seen Neck- supple, no JVD. Lungs- clear to auscultation no wheezing or crackles. Heart- regular rhythm; no murmur, no gallop. Abdomen- normal bowel sounds, soft,diffuse tender , mild distension. Extremities- trace pretibial edema, no erythema seen Neuro- Lethargic ; PERRL, no facial palsy; no dysarthria; Results & Data Results & Data Vital Signs (Past 12 Hours) Vital Signs Temp Pulse Resp BP BP Pulse Ox O2 Del Method 07/03/23 22:10 76 12 100 07/03/23 22:10 112/62 07/03/23 22:05 77 12 100 07/03/23 22:05 115/64 07/03/23 22:00 78 13 100 07/03/23 22:00 113/62 07/03/23 21:55 105/62 07/03/23 21:55 78 14 100 07/03/23 21:50 78 13 100 07/03/23 21:50 98/63 L 07/03/23 21:45 105/62 07/03/23 21:45 85 14 100 07/03/23 21:40 85 16 100 07/03/23 21:40 113/64 07/03/23 21:35 125/71 07/03/23 21:35 84 16 100 07/03/23 21:32 128/69 07/03/23 21:30 89 20 100 07/03/23 21:25 91 H 34 H 100 07/03/23 21:25 106/65 07/03/23 21:20 89 43 H 100 07/03/23 21:20 121/62 07/03/23 21:15 94/61 L 07/03/23 21:15 88 27 H 100 07/03/23 22:33 36.5 C 98 Nasal Cannula 07/03/23 21:55 78 07/03/23 21:48 36.7 C 81 18 105/62 100 07/03/23 21:10 89 25 H 100 07/03/23 21:10 117/65 07/03/23 21:09 113/69 07/03/23 21:09 93 H 30 H 100 Nasal Cannula 07/03/23 21:02 135/67 07/03/23 21:02 122 H 46 H 96 07/03/23 21:00 130 H 25 H 99 07/03/23 20:55 121/71 07/03/23 20:55 86 45 H 100 07/03/23 20:50 82 44 H 100 07/03/23 20:50 111/63 07/03/23 20:45 79 14 100 07/03/23 20:45 95/58 L 07/03/23 20:40 79 21 100 07/03/23 20:40 99/59 L 07/03/23 20:35 82 26 H 108/60 100 07/03/23 20:30 83 28 H 105/66 100 07/03/23 20:25 90 29 H 110/69 100 07/03/23 20:20 103 H 28 H 107/88 100 07/03/23 20:16 109 H 32 H 82/45 L 100 07/03/23 20:10 85 21 91/58 L 100 07/03/23 20:05 82 15 91/57 L 100 07/03/23 20:00 85 17 94/58 L 98 07/03/23 19:55 88 50 H 102/57 L 99 07/03/23 19:50 82 25 H 103/57 L 99 07/03/23 19:47 87 35 H 103/57 L 98 07/03/23 19:35 89 21 84/53 L 99 07/03/23 19:30 85 22 89/60 L 99 07/03/23 19:25 89/52 L 07/03/23 19:20 99/60 L 07/03/23 20:24 36.6 C 87 34 H 107/88 100 07/03/23 21:25 36.7 C 82 18 125/71 100 07/03/23 21:00 Nasal Cannula 07/03/23 20:00 36.6 C 83 20 94/58 L 100 07/03/23 19:45 36.5 C 90 24 84/53 L 98 07/03/23 19:15 110/59 L 07/03/23 19:15 84 19 100 07/03/23 19:21 99/60 L 07/03/23 19:10 79 16 99 07/03/23 19:10 106/65 07/03/23 19:05 111/69 07/03/23 19:05 76 13 100 07/03/23 19:00 87 23 99 07/03/23 19:00 109/78 07/03/23 18:59 115/78 07/03/23 18:59 78 19 100 07/03/23 18:55 70 14 100 07/03/23 18:55 116/73 07/03/23 18:50 73 22 128/73 100 Nasal Cannula 07/03/23 18:50 128/73 100 Nasal Cannula 07/03/23 18:45 100 H 31 H 110/60 100 Nasal Cannula 07/03/23 18:40 88 30 H 116/72 100 07/03/23 18:35 116/73 10/25/23 18:35 80 35 H 129/69 100 07/03/23 18:30 90 17 128/80 100 07/03/23 18:20 89 29 H 103/68 100 07/03/23 18:15 94 H 27 H 120/68 98 07/03/23 18:14 96 H 7 L 105/62 07/03/23 18:00 101 H 33 H 110/68 98 07/03/23 18:33 8 L 100 Nasal Cannula 07/03/23 18:28 36.1 C L 87 20 128/80 99 07/03/23 18:17 84 22 120/68 100 07/03/23 18:13 96 H 26 H 105/62 99 07/03/23 17:59 102 H 07/03/23 18:20 36.6 C 79/53 L O2 Flow Rate 07/03/23 22:10 07/03/23 22:10 07/03/23 22:05 07/03/23 22:05 07/03/23 22:00 07/03/23 22:00 07/03/23 21:55 07/03/23 21:55 07/03/23 21:50 07/03/23 21:50 07/03/23 21:45 07/03/23 21:45 07/03/23 21:40 07/03/23 21:40 07/03/23 21:35 07/03/23 21:35 07/03/23 21:32 07/03/23 21:30 07/03/23 21:25 07/03/23 21:25 07/03/23 21:20 07/03/23 21:20 07/03/23 21:15 07/03/23 21:15 07/03/23 22:33 07/03/23 21:55 07/03/23 21:48 4 07/03/23 21:10 07/03/23 21:10 07/03/23 21:09 07/03/23 21:09 4 07/03/23 21:02 07/03/23 21:02 07/03/23 21:00 07/03/23 20:55 07/03/23 20:55 07/03/23 20:50 07/03/23 20:50 07/03/23 20:45 07/03/23 20:45 07/03/23 20:40 07/03/23 20:40 07/03/23 20:35 07/03/23 20:30 07/03/23 20:25 07/03/23 20:20 07/03/23 20:16 07/03/23 20:10 07/03/23 20:05 07/03/23 20:00 07/03/23 19:55 07/03/23 19:50 07/03/23 19:47 07/03/23 19:35 07/03/23 19:30 07/03/23 19:25 07/03/23 19:20 07/03/23 20:24 07/03/23 21:25 4 07/03/23 21:00 07/03/23 20:00 4 07/03/23 19:45 4 07/03/23 19:15 07/03/23 19:15 07/03/23 19:21 07/03/23 19:10 07/03/23 19:10 07/03/23 19:05 07/03/23 19:05 07/03/23 19:00 07/03/23 19:00 07/03/23 18:59 07/03/23 18:59 07/03/23 18:55 07/03/23 18:55 07/03/23 18:50 2 07/03/23 18:50 07/03/23 18:45 2 07/03/23 18:40 07/03/23 18:35 07/03/23 18:35 07/03/23 18:30 07/03/23 18:20 07/03/23 18:15 07/03/23 18:14 07/03/23 18:00 07/03/23 18:33 2 07/03/23 18:28 2 07/03/23 18:17 07/03/23 18:13 07/03/23 17:59 07/03/23 18:20 Diagnostic Findings Laboratory Results WBC 2.21 K/ul (4.8-10.8) L 07/04/23 00:59 RBC 3.04 M/uL (4.70-6.10) L 07/04/23 00:59 Hgb 9.6 g/dl (14.0-18.0) L 07/04/23 00:59 POC Hgb 8.2 g/dl (14.0-18.0) L 07/03/23 18:02 Hct 28.1 % (42.0-52.0) L 07/04/23 00:59 POC Hct 24 % (42-52) L 07/03/23 18:02 MCV 92.4 fL (80.0-100.0) D 07/04/23 00:59 MCH 31.6 pg (25.0-34.0) 07/04/23 00:59 MCHC 34.2 g/dL (32.0-36.0) 07/04/23 00:59 RDW Std Deviation 60.4 fL (36.4-46.3) H 07/04/23 00:59 RDW Coeff of Mp 18.6 % (11.5-14.5) H 07/04/23 00:59 Plt Count 30 K/uL (130-400) L 07/04/23 00:59 MPV 10.1 fL (9.4-12.4) 07/04/23 00:59 Immature Gran % (Auto) 0.3 % 07/03/23 18:01 Neut % (Auto) 35.3 % 07/03/23 18:01 Lymph % (Auto) 45.8 % 07/03/23 18:01 [place] % (Auto) 12.3 % 07/03/23 18:01 Eos % (Auto) 4.7 % 07/03/23 18:01 Baso % (Auto) 1.6 % 07/03/23 18:01 Neut # (Auto) 1.35 K/uL (1.40-6.50) L 07/03/23 18:01 Lymph # (Auto) 1.75 K/uL (1.20-3.40) 07/03/23 18:01 [place] # (Auto) 0.47 K/uL (0.11-0.59) 07/03/23 18:01 Eos # (Auto) 0.18 K/uL (0.00-0.50) 07/03/23 18:01 Baso # (Auto) 0.06 K/uL (0.00-0.20) 07/03/23 18:01 Immature Gran # (Auto) 0.01 K/uL (0.01-0.20) 07/03/23 18:01 Platelet Estimate Decreased (Normal) L 07/03/23 18:01 Anisocytosis Present 07/03/23 18: Ovalocytes 1+ 07/03/23 18:01 PT 17.9 Seconds (9.0-12.0) H 07/03/23 18:01 INR 1.7 (0.9-1.1) H 07/03/23 18: APTT 29.6 Seconds (21.0-31.0) 07/03/23 18: PTT Ratio 1.0 07/03/23 18: Fibrinogen 131 mg/dl (184-400) L 07/03/23 21:42 VBG pH 7.33 (7.36-7.41) L 07/04/23 00:59 VBG pCO2 45 mmHg (38-50) 07/04/23 00:59 VBG pO2 34 mmHg 07/04/23 00:59 VBG HCO3 24 mmol/L 07/04/23 00:59 VBG O2 Saturation < 60.0 % 07/04/23 00:59 VBG Base Excess -2.4 mEq/L 07/04/23 00:59 POC Sodium 137 mmol/L (135-144) 07/03/23 18:02 Sodium 138 mmol/L (136-145) 07/04/23 00:59 POC Potassium 2.8 mmol/L (3.3-5.0) L 07/03/23 18:02 Potassium 4.8 mmol/L (3.5-5.1) D 07/04/23 00:59 POC Chloride 95 mmol/L (101-112) L 07/03/23 18:02 Chloride 104 mmol/L (98-107) 07/04/23 00:59 Carbon Dioxide 22 mmol/L (21-32) 07/04/23 00:59 POC Total CO2 23 mmol/L (24-31) L 07/03/23 18:02 Anion Gap 12 (3-11) H 07/04/23 00:59 POC Anion Gap 22.0 mmol/L (16-25) 07/03/23 18:02 POC BUN 9 mg/dl (7-18) 07/03/23 18:02 BUN 13 mg/dl (6-23) 07/04/23 00:59 Creatinine 0.65 mg/dl (0.6-1.4) 07/04/23 00:59 POC Creatinine 1.3 mg/dl (0.6-1.3) 07/03/23 18:02 Est Cr Clr Drug Dosing 93.3 ml/min 07/04/23 00:59 Est GFR ( Amer) 125.2 ml/min 07/04/23 00:59 Est GFR (Non-Af Amer) 108.0 ml/min 07/04/23 00:59 BUN/Creatinine Ratio 20.0 (10-20) 07/04/23 00:59 Glucose 114 mg/dl (70-99(Fasting)) H 07/04/23 00:59 POC Glucose (other) 110 mg/dl (70-99) H 07/03/23 18:02 Lactate 5.2 mmol/L (0.4-2.0) H* 07/04/23 00:59 Calcium 7.8 mg/dl (8.6-10.3) L 07/04/23 00:59 POC Ioniz Calcium Roddy 1.01 mmol/l (1.12-1.32) L 07/03/23 18:02 Phosphorus 3.9 mg/dl (2.5-4.9) 07/04/23 00:59 Magnesium 1.2 mg/dl (1.7-2.4) L 07/04/23 00:59 Total Bilirubin 5.1 mg/dl (0.2-1.0) H 07/04/23 00:59 AST 133 U/L (13-39) H 07/04/23 00:59 ALT 34 U/L (7-52) 07/04/23 00:59 Alkaline Phosphatase 98 U/L (34-104) 07/04/23 00:59 Ammonia 84.0 umol/L (18-72) H 07/03/23 18:01 Troponin I High Sens 9.3 pg/ml (0-20) 07/03/23 18:01 Total Protein 6.1 gm/dl (6.0-8.3) 07/04/23 00:59 Albumin 2.9 gm/dl (3.4-5.0) L 07/04/23 00:59 Globulin 3.2 gm/dl (2.5-4.0) 07/04/23 00:59 Albumin/Globulin Ratio 0.9 (0.9-2) 07/04/23 00:59 Lipase 132 U/L (11-82) H 07/03/23 18:01 Urine Color Yellow 07/03/23 21:15 Urine Appearance Clear (Clear) 07/03/23 21:15 Urine pH 6.0 (4.5-7.5) 07/03/23 21:15 Ur Specific [place] 1.045 (1.000-1.030) H 07/03/23 21:15 Urine Protein Negative (Negative) 07/03/23 21:15 Urine Glucose (UA) Negative (Negative) 07/03/23 21:15 Urine Ketones Negative (Negative) 07/03/23 21:15 Urine Blood Negative (Negative) 07/03/23 21:15 Urine Nitrite Negative (Negative) 07/03/23 21:15 Urine Bilirubin Negative (Negative) 07/03/23 21:15 Urine Urobilinogen Negative (Negative) 07/03/23 21:15 Ur Leukocyte Esterase Negative (Negative) 07/03/23 21:15 Nasal Screen MRSA (PCR) Negative (Negative) 07/03/23 Unknown Ethyl Alcohol mg/dL 215.2 mg/dl (<10.0) H 07/03/23 18:01 SARS-CoV-2, RNA, NAAT NEGATIVE (NEGATIVE) 07/03/23 18:36 Blood Type O Positive 07/03/23 18:01 Blood Type Recheck O Positive 07/03/23 18:30 Antibody Screen NEGATIVE 07/03/23 18:01 Crossmatch See Detail 07/03/23 18:01 Impressions Abdomen/Pelvis CT 07/03/23 17:59 CT OF THE ABDOMEN AND PELVIS WITH CONTRAST CLINICAL HISTORY: Abdominal pain. Hematemesis. COMPARISON STUDY: None. TECHNIQUE: Following IV administration of 87 mL of Optiray, axial images of the abdomen and pelvis were obtained from the lung bases to the proximal femurs. Images were reviewed in the axial, sagittal, and coronal planes. IV contrast was administered without complication. Automated exposure control was utilized for the study. A dose lowering technique was utilized adhering to the principles of ALARA. CT DOSE: 1295.64 mGy.cm FINDINGS: An 8 mm solid noncalcified left lower lobe pulmonary nodule on image 37 of 389 is noted. There is bilateral gynecomastia. No pneumatosis, free air or portal venous gas is present. Extensive paraesophageal and esophageal varices are present. Hyperdense material within the stomach is noted. The liver is cirrhotic. Heterogeneity of the liver is likely due to cirrhosis. No well- defined hepatic lesions are identified although sensitivity for detection of hypervascular lesions is diminished on this portal venous phase exam. The main, left and right portal veins are patent. There is no biliary ductal dilatation status post cholecystectomy. There are diverticula of the second and third portions of the duodenum. The spleen is enlarged. Additional abdominal and pelvi c varices are present. Adrenal glands, kidneys and pancreas are unremarkable. There is no hydronephrosis. There is no pancreatic ductal dilatation. Moderate right colon wall thickening is noted with pericolonic stranding. A small amount of ascites within the abdomen is present. There is also rectal wall thickening. There is no evidence for a bowel obstruction. Major vasculature is patent. Avascular necrosis of the bilateral femoral heads without collapse is noted. IMPRESSION: 1. Cirrhosis with manifestations of portal hypertension including paraesophageal/esophageal varices, splenomegaly and a small amount of ascites. 2. Mixed attenuation contents within the stomach. This could reflect blood products intermixed with ingested contents. 3. Moderate right colon wall thickening with pericolonic stranding and fluid. Mild rectal wall thickening. The findings are likely related to portal hypertension however a nonspecific proctocolitis could appear similar. 4. No bowel obstruction. Normal appendix. 5. 8 mm left lower lobe pulmonary nodule. A follow-up chest CT in 6 months to ensure stability is recommended. 6. Avascular necrosis of the bilateral femoral heads without collapse. ACT 112: Negative or not required by law. Electronically signed by: Jon Torres M.D. 07/03/2023 6:42 PM Code Status & VTE Plan VTE Prophylaxis Plan VTE Prophylaxis will be ordered: Yes
--- NOTE | 2023-07-03 23:48 | Communication Note ---
Date of Service: July 03, 2023 Patient went emergent EGD where he was found to have actively bleeding grade 3 esophageal varices and underwent banding with no active bleeding observed after intervention. Patient has been accepted to [facility] in [place]. He is admitted to the ICU for further management while awaiting transfer. Updates: -Continue with Protonix and octreotide drips -Has thus far received 6 units RBCs, 2 FFP, 2 units cryo. Continue to trend CBC and coags and transfuse as indicated -Verified with GI, okay to start lactulose enema for elevated ammonia/hepatic encephalopathy -KRISTIE S protocol with IV Ativan -Continue with medical management in ICU while awaiting transfer. CRITICAL CARE TIME - I have personally spent 45 minutes of critical care time in the direct management of this patient. This is a life/limb threatening event. This includes time spent evaluating patient, direct bedside care, chart review, placing orders, interpretation of diagnostic studies, discussion with consultants, patient, and family members, as well as other required patient management activities. This time is exclusive of all separately billable procedures, and teaching time and separate from and in addition to any other critical care service time. Coding Level of Care Code 45672 CRITICAL CARE EA ADD 30M
[2023-07-03] MEDS ORDERED: Ativan IV Alcohol Withdrawal--Active Protocol IV PRN (23:57)
[2023-07-03] MEDS ORDERED: LORazepam 2 MG/1 ML VIAL IV PRN ×3 (23:57)
[2023-07-03] MEDS ORDERED: MULTI-VITAMIN INFUSION 10 ML, THIAMINE HCL 100 MG, FOLIC ACID 1 MG in SODIUM CHLORIDE 0... IV ONE (23:57)
[2023-07-04] MEDS: PLASMA-LYTE A 1,000 ML IV SCH ×3 (00:31→23:11)
[2023-07-04] MEDS: PANTOprazole 40 MG in DEXTROSE 5% MINI-B 100 ML IV SCH ×3 (00:31→09:11)
[2023-07-04] MEDS: cefTRIAXone SODIUM 2,000 MG in DEXTROSE 5 % MINI-B 50 ML IV SCH ×2 (00:41→23:10)
[2023-07-04] MEDS: LACTULOSE 200GM/700ML WTR ENEMA PR SCH ×4 (00:42→23:17)
[2023-07-04 01:19] LABS: Base Excess VBG -2.4 mEq/L; HCO3 VBG 24 mmol/L; Oxygen Saturation VBG < 60.0 %; PCO2 VBG 45 mmHg (38-50); PO2 VBG 34 mmHg; pH VBG 7.33 (7.36-7.41)
[2023-07-04 01:41] LABS: Albumin Globulin Ratio 0.9 (0.9-2); Albumin Level 2.9 gm/dl (3.4-5.0); Bilirubin,Total 5.1 mg/dl (0.2-1.0); Calcium 7.8 mg/dl (8.6-10.3); Creatinine Clr Calc Pharmacy 93.3 ml/min; Est GFR (African American) 125.2 ml/min; Globulin 3.2 gm/dl (2.5-4.0); Magnesium 1.2 mg/dl (1.7-2.4); Phosphorus 3.9 mg/dl (2.5-4.9); Potassium 4.8 mmol/L (3.5-5.1); Total Protein 6.1 gm/dl (6.0-8.3)
[2023-07-04 01:57] LABS: Hematocrit (blood only) 28.1 % (42.0-52.0); Hemoglobin 9.6 g/dl (14.0-18.0); Mean Corpuscular Hemoglobin 31.6 pg (25.0-34.0); Mean Corpuscular Hgb Conc 34.2 g/dL (32.0-36.0); Mean Corpuscular Volume 92.4 fL (80.0-100.0); Mean Platelet Volume 10.1 fL (9.4-12.4); Platelet Count 30 K/uL (130-400); RDW Coefficient of Variation 18.6 % (11.5-14.5); RDW Standard Deviation 60.4 fL (36.4-46.3); Red Blood Count 3.04 M/uL (4.70-6.10); White Blood Count 2.21 K/ul (4.8-10.8)
[2023-07-04] MEDS: MAGNESIUM SULFATE / D5W 1 GM/100 ML BAG IV SCH ×4 (03:14→09:11)
[2023-07-04] MEDS: OCTREOTIDE ACETATE 500 MCG in 0.9 % SODIUM CHLORIDE 100 ML IV SCH ×3 (03:17→23:03)
[2023-07-04 05:17] LABS: Albumin Level 2.9 gm/dl (3.4-5.0); BUN Creatinine Ratio 21.4 (10-20); Bilirubin Direct 2.1 mg/dl (0-0.2); Bilirubin,Total 4.6 mg/dl (0.2-1.0); Calcium 7.7 mg/dl (8.6-10.3); Est GFR (African American) 133.1 ml/min; Est GFR (Non-African American) 114.8 ml/min; Magnesium 1.4 mg/dl (1.7-2.4); Phosphorus 3.3 mg/dl (2.5-4.9); Potassium 3.7 mmol/L (3.5-5.1); Total Protein 6.1 gm/dl (6.0-8.3)
[2023-07-04 05:29] LABS: INR 1.3 (0.9-1.1); Partial Thromboplastin Time 28.4 Seconds (21.0-31.0); Prothrombin Time 14.5 Seconds (9.0-12.0)
[2023-07-04 05:53] LABS: Basophils # (auto) 0.03 K/uL (0.00-0.20); Basophils % (auto) 1.5 %; Eosinophils % (auto) 4.9 %; Hematocrit (blood only) 25.5 % (42.0-52.0); Hemoglobin 8.7 g/dl (14.0-18.0); Lymphocytes # (auto) 0.57 K/uL (1.20-3.40); Lymphocytes % (auto) 28.1 %; Mean Corpuscular Hemoglobin 30.9 pg (25.0-34.0); Mean Corpuscular Hgb Conc 34.1 g/dL (32.0-36.0); Mean Corpuscular Volume 90.4 fL (80.0-100.0); Mean Platelet Volume 10.2 fL (9.4-12.4); Monocytes # (auto) 0.26 K/uL (0.11-0.59); Monocytes % (auto) 12.8 %; Neutrophils # (auto) 1.07 K/uL (1.40-6.50); Neutrophils % (auto) 52.7 %; Platelet Count 27 K/uL (130-400); Platelet Estimate Signific. Decreased (Normal); RDW Coefficient of Variation 18.6 % (11.5-14.5); RDW Standard Deviation 58.7 fL (36.4-46.3); Red Blood Count 2.82 M/uL (4.70-6.10); White Blood Count 2.03 K/ul (4.8-10.8)
[2023-07-04] MEDS: POTASSIUM CHLORIDE / WTR 10 MEQ/100 ML PLCT IV SCH ×2 (06:14→07:21)
[2023-07-04 06:32] LABS: Fibrinogen 220 mg/dl (184-400)
[2023-07-04] MEDS ORDERED: MAGNESIUM SULFATE / D5W 1 GM/100 ML BAG IV SCH (06:45)
--- NOTE | 2023-07-04 07:05 | XRay Report ---
XR chest 1V portable CLINICAL HISTORY: Atypical chest pain. COMPARISON STUDY: No previous studies for comparison. FINDINGS: Lung volumes are mildly diminished. Right basilar opacity is noted. Pleural effusion. No ev idence for pulmonary edema. Prominence of the cardiac silhouette is likely technical. IMPRESSION: Low lung volumes suggestive of a hypoventilatory study. Right basilar opacities which lik hua reflect atelectasis. ACT 112: Negative or not required by law. Electronically signed by: Jon Torres M.D. 07/04/2023 7:03 AM
--- NOTE | 2023-07-04 08:26 | Critical Care Progress Note ---
Date of Service July 04, 2023 Assessment & Plan (1) Hemorrhagic shock: Plan: Reason Critically Ill: 58-year-old male with history of alcoholic cirrhosis presented to the emergency department with gross hematemesis with hortencia red blood, hemorrhagic shock from upper GI bleed source. CT abdomen and pelvis reveal esophageal varices. Patient started on a ocreotide and Protonix, and transfused 3 units RBCs, 1 unit FFP, 1 unit platelets and continues to have epis odes of hematemesis with hypotension. Plan to undergo emergent EGD. Neuro - Encephalopathy - Improving. - Refusing lactulose enema. -Will likely need KRISTIE S scale with IV Ativan for withdrawal. Patient's son states that he has undergone alcohol withdrawal while inpatient in the past -Consider banana bag. Replete electrolytes. IV thiamine, folic acid Cardiac - Hypotensionsecondary to hemorrhagic shock. improved. H&H remaining stable. Respiratory - No history of pulmonary disease. Currently maintaining oxygen saturation on nasal cannula. Continuous monitoring pulse ox GI - Acute upper GI bleedsuspect this is likely secondary to underlying liver disease/esophageal varices which were seen on CT abdomen and pelvis. -See transfusion below - post EGD with banding. -Continue octreotide and Protonix drips per GI. - Will defer to their guidance on drips, diets, etc. RENAL/LYTES - Creatinine within normal limits. Monitor routine BMPs and replete electrolytes as indicated Lactic acidosis lactate cleared at this time. - Foleystrict I's and O's ENDO - No history of diabetes or thyroid disease. Currently euglycemic HEME - Acute blood loss anemiasecondary to upper GI bleed. Currently transfused 3 units RBCs, 1 unit FFP, 1 unit platelets -10 mg IV vitamin K administered -Trend CBC and transfuse as indicated Thrombocytopenia: - Likely 2/2 EtOH and liver failure. - Monitor for s/s return bleeding. - Would have low threshold for repeat transfusion versus transfer if he were to bleed again due to platelet supplies and likely need for advanced interven tion. ID - Recommend administration of empiric Rocephin giving bleeding varices, ascites LINES/IV ACCESS - Peripheral IVs DVT PROPHYLAXIS - SCDs, holding anticoagulation in the setting of acute GI bleed I have personally spent 38 minutes of critical care time in the direct management of this patient. This is a life/limb threatening event. This includes time spent evaluating patient, direct bedside care, chart review, placing orders, interpretation of diagnostic studies, discussion with consultants, patient, and family members, as well as other required patient management activities. This time is exclusive of all separately billable procedures, and teaching time and separate from and in addition to any other critical care service time. Thank you for allowing us to participate in the care of this patient. Please refer to my attending physician's documentation for any further recommendations. (2) End stage liver disease: (3) Bleeding esophageal varices: (4) Alcoholic cirrhosis: (5) Hematemesis: (6) Thrombocytopenia: (7) Lactic acidosis: (8) Varices, esophageal: Admission and Anticipated Discharge Date Admission Date: July 03, 2023 Supervising Physician Co-Signing Physician Notes Patient seen and examined. EMR reviewed. Discussed with NAVDEEP and agree with assessment plan as noted. The patient is doing well clinically. He is hemodynamically stable and has not required additional transfusions. He can likely be downgraded out of the intensive care unit. Will defer to his primary admitting service ultimate disposition. Critical care will sign off at this point in time. Additional management per the patient's hospitalist service. Subjective Patient was seen and evaluated at bedside. He reports no complaints of pain at this time. He states that he had previously been evaluated for cirrhosis secondary to alcoholism back home in [place]. He is actually scheduled to follow-up with [facility] for evaluation for transplantation which is to be performed in the outpatient setting. He continues to drink daily. Patient offers no complaints of pain at this time. He generally feels tired after an eventful last evening. Review of Systems Review of Systems: Unchanged from admission. Physical Exam Physical Exam: VITAL SIGNS - Vital signs and nursing notes were reviewed. GENERAL - 58-year-old male appearing his stated age who is in no acute distress. Communicates well with provider and answers questions appropriately. SKIN - Without rashes. EYES - PERRL with EOMI bilaterally. Sclera anicteric. MOUTH/OROPHARYNX - Without perioral cyanosis. Dried blood noted around the lips. LUNGS - Chest wall symmetric without accessory muscle use, intercostals retractions, or central cyanosis. Normal vesicular breath sounds CTA B/L. No wheezes, rales, or rhonchi appreciated. CARDIAC - RRR with S1/S2. No murmur, rubs, or gallops appreciated. ABDOMEN - Abdominal contour without pulsations or visible masses. BS normoactive all four quadrants. No tenderness, palpable masses, hepatosplenomegaly. Mild ascites noted. EXTREMITIES - No clubbing or peripheral cyanosis. No pretibial edema present. +3/5 radia and dorsalis pedis pulses palpated throughout. PSYCH - A&Ox3 and cooperates fully with examiner. Pt is very pleasant and interacts well with examiner. Results & Data Results & Data Vital Signs (Past 12 Hours) Vital Signs Temp Pulse Pulse Resp BP BP Pulse Ox 07/04/23 06:30 37.0 C 81 21 93 07/04/23 06:30 106/58 L 07/04/23 06:20 82 17 92 07/04/23 06:10 80 19 94 07/04/23 06:00 89 29 H 94 07/04/23 06:00 128/69 07/04/23 05:50 81 13 94 07/04/23 05:40 82 14 94 07/04/23 05:30 80 13 93 07/04/23 05:30 114/61 07/04/23 05:20 82 14 94 07/04/23 05:10 79 12 96 07/04/23 05:00 85 12 94 07/04/23 05:00 118/63 07/04/23 04:50 79 14 95 07/04/23 04:40 94 H 20 96 07/04/23 04:30 85 13 94 07/04/23 04:30 116/64 07/04/23 04:20 79 12 96 07/04/23 04:10 79 13 96 07/04/23 04:00 84 17 95 07/04/23 04:00 112/60 07/04/23 03:50 78 19 96 07/04/23 03:40 84 19 96 07/04/23 04:38 37.3 C 07/04/23 01:30 36.6 C 88 12 116/66 100 07/04/23 03:30 79 14 96 07/04/23 03:30 114/63 07/04/23 03:20 79 13 96 07/04/23 03:10 76 14 96 07/04/23 03:00 82 12 94 07/04/23 03:00 111/63 07/04/23 02:50 80 13 95 07/04/23 02:40 85 12 96 07/04/23 02:30 119/61 07/04/23 02:40 36.6 C 78 16 111/63 99 07/04/23 02:53 74 07/04/23 02:30 85 14 95 07/04/23 02:20 81 13 96 07/04/23 02:10 78 14 97 07/04/23 02:00 81 14 97 07/04/23 02:00 117/63 07/04/23 01:50 80 12 99 07/04/23 01:40 80 22 99 07/04/23 01:30 77 12 99 07/04/23 01:30 116/62 07/04/23 01:25 116/66 07/04/23 01:25 88 13 100 07/04/23 01:20 78 13 100 07/04/23 01:20 113/61 07/04/23 01:15 112/67 07/04/23 01:15 77 13 100 07/04/23 01:10 74 12 100 07/04/23 01:10 112/64 07/04/23 01:05 75 12 98 07/04/23 01:05 113/65 07/04/23 01:00 79 19 100 07/04/23 01:00 117/67 07/04/23 00:50 71 32 H 07/04/23 00:50 122/70 07/04/23 00:45 114/76 07/04/23 00:45 71 21 100 07/04/23 00:40 72 26 H 100 07/04/23 00:40 122/74 07/04/23 00:35 127/64 07/04/23 00:35 69 37 H 100 07/04/23 00:30 74 24 100 07/04/23 00:30 107/80 07/04/23 00:27 70 31 H 100 07/04/23 00:27 122/70 07/04/23 00:24 69 33 H 100 07/04/23 01:58 36.8 C 80 20 116/62 99 07/03/23 23:35 36.6 C 80 18 114/75 99 07/04/23 00:56 36.8 C 73 24 122/70 99 07/04/23 00:35 37.1 C 78 32 H 107/80 99 07/04/23 00:18 36.6 C 80 18 114/75 99 07/03/23 23:45 36.6 C 79 18 118/69 97 07/03/23 23:40 36.6 C 82 16 116/69 97 07/03/23 23:30 36.6 C 74 16 114/75 99 07/03/23 22:10 76 12 100 07/03/23 22:10 112/62 07/03/23 22:05 77 12 100 07/03/23 22:05 115/64 07/03/23 22:00 78 13 100 07/03/23 22:00 113/62 07/03/23 21:55 105/62 07/03/23 21:55 78 14 100 07/03/23 21:50 78 13 100 07/03/23 21:50 98/63 L 07/03/23 21:45 105/62 07/03/23 21:45 85 14 100 07/03/23 21:40 85 16 100 07/03/23 21:40 113/64 07/03/23 21:35 125/71 07/03/23 21:35 84 16 100 07/03/23 21:32 128/69 07/03/23 21:30 89 20 100 07/03/23 21:25 91 H 34 H 100 07/03/23 21:25 106/65 07/03/23 21:20 89 43 H 100 07/03/23 21:20 121/62 07/03/23 21:15 94/61 L 07/03/23 21:15 88 27 H 100 07/03/23 22:33 36.5 C 98 07/03/23 21:55 78 07/03/23 21:48 36.7 C 81 18 105/62 100 07/03/23 21:10 89 25 H 100 07/03/23 21:10 117/65 07/03/23 21:09 113/69 07/03/23 21:09 93 H 30 H 100 07/03/23 21:02 135/67 07/03/23 21:02 122 H 46 H 96 07/03/23 21:00 130 H 25 H 99 07/03/23 20:55 121/71 07/03/23 20:55 86 45 H 100 07/03/23 20:50 82 44 H 100 07/03/23 20:50 111/63 07/03/23 20:45 79 14 100 07/03/23 20:45 95/58 L 07/03/23 20:40 79 21 100 07/03/23 20:40 99/59 L 07/03/23 20:35 82 26 H 108/60 100 07/03/23 20:30 83 28 H 105/66 100 07/03/23 21:25 36.7 C 82 18 125/71 100 07/03/23 21:00 O2 Del Method O2 Flow Rate 07/04/23 06:30 07/04/23 06:30 07/04/23 06:20 07/04/23 06:10 07/04/23 06:00 07/04/23 06:00 07/04/23 05:50 07/04/23 05:40 07/04/23 05:30 07/04/23 05:30 07/04/23 05:20 07/04/23 05:10 07/04/23 05:00 07/04/23 05:00 07/04/23 04:50 07/04/23 04:40 07/04/23 04:30 07/04/23 04:30 07/04/23 04:20 07/04/23 04:10 07/04/23 04:00 07/04/23 04:00 07/04/23 03:50 07/04/23 03:40 07/04/23 04:38 07/04/23 01:30 3 07/04/23 03:30 07/04/23 03:30 07/04/23 03:20 07/04/23 03:10 07/04/23 03:00 07/04/23 03:00 07/04/23 02:50 07/04/23 02:40 07/04/23 02:30 07/04/23 02:40 1 07/04/23 02:53 07/04/23 02:30 07/04/23 02:20 07/04/23 02:10 07/04/23 02:00 07/04/23 02:00 07/04/23 01:50 07/04/23 01:40 07/04/23 01:30 07/04/23 01:30 07/04/23 01:25 07/04/23 01:25 07/04/23 01:20 07/04/23 01:20 07/04/23 01:15 07/04/23 01:15 07/04/23 01:10 07/04/23 01:10 07/04/23 01:05 07/04/23 01:05 07/04/23 01:00 07/04/23 01:00 07/04/23 00:50 07/04/23 00:50 07/04/23 00:45 07/04/23 00:45 07/04/23 00:40 07/04/23 00:40 07/04/23 00:35 07/04/23 00:35 07/04/23 00:30 07/04/23 00:30 07/04/23 00:27 07/04/23 00:27 07/04/23 00:24 07/04/23 01:58 3 07/03/23 23:35 3 07/04/23 00:56 3 07/04/23 00:35 3 07/04/23 00:18 07/03/23 23:45 Oxymask 3 07/03/23 23:40 Oxymask 3 07/03/23 23:30 Oxymask 3 07/03/23 22:10 07/03/23 22:10 07/03/23 22:05 07/03/23 22:05 07/03/23 22:00 07/03/23 22:00 07/03/23 21:55 07/03/23 21:55 07/03/23 21:50 07/03/23 21:50 07/03/23 21:45 07/03/23 21:45 07/03/23 21:40 07/03/23 21:40 07/03/23 21:35 07/03/23 21:35 07/03/23 21:32 07/03/23 21:30 07/03/23 21:25 07/03/23 21:25 07/03/23 21:20 07/03/23 21:20 07/03/23 21:15 07/03/23 21:15 07/03/23 22:33 Nasal Cannula 07/03/23 21:55 07/03/23 21:48 4 07/03/23 21:10 07/03/23 21:10 07/03/23 21:09 07/03/23 21:09 Nasal Cannula 4 07/03/23 21:02 07/03/23 21:02 07/03/23 21:00 07/03/23 20:55 07/03/23 20:55 07/03/23 20:50 07/03/23 20:50 07/03/23 20:45 07/03/23 20:45 07/03/23 20:40 07/03/23 20:40 07/03/23 20:35 07/03/23 20:30 07/03/23 21:25 4 07/03/23 21:00 Nasal Cannula Coding Level of Care Code 29024 SUB INP/OBS CARE 3/50MIN Diagnoses Hemorrhagic shock R57.8 End stage liver disease K72.10 Bleeding esophageal varices I85.01 Alcoholic cirrhosis K70.30 Hematemesis K92.0 Thrombocytopenia D69.6 Lactic acidosis E87.20 Varices, esophageal I85.00
[2023-07-04] MEDS ORDERED: FUROSEMIDE 40 MG TAB PO SCH (09:00)
[2023-07-04] MEDS ORDERED: THIAMINE HCL 100 MG in SYRINGE 9 ML IV SCH (09:00)
[2023-07-04] MEDS ORDERED: FOLIC ACID 1 MG in SYRINGE 9.8 ML IV SCH (09:00)
[2023-07-04] MEDS: ICU Protocol for HYPERglycemia SCH ×4 (09:13→20:41)
[2023-07-04 11:11] LABS: Hematocrit (blood only) 25.4 % (42.0-52.0); Hemoglobin 8.8 g/dl (14.0-18.0)
--- NOTE | 2023-07-04 11:14 | Gastroenterology Progress Note ---
Date of Service July 04, 2023 Assessment & Plan (1) Varices, esophageal: Plan: Seems to be stable. Would continue octreotide for the full 3 days and not eat for those days. Will follow Admission and Anticipated Discharge Date Admission Date: July 03, 2023 Subjective No hematemesis but passing blood with bowel movements. Feels better. H/H better today. Does not desire to be transferred Physical Exam Constitutional: + ill appearing Results & Data Vital Signs (Past 12 Hours) Vital Signs Temp Pulse Pulse Resp BP BP Pulse Ox 07/04/23 11:04 78 07/04/23 09:00 37.3 C 78 15 92 07/04/23 09:00 109/65 07/04/23 08:30 116/61 07/04/23 08:30 37.2 C 80 16 07/04/23 08:00 37.1 C 81 20 90 07/04/23 08:00 117/62 07/04/23 08:00 117/62 07/04/23 07:30 118/64 07/04/23 07:30 37.0 C 81 23 94 07/04/23 07:00 36.9 C 80 20 92 07/04/23 07:00 111/59 L 07/04/23 06:45 36.9 C 77 16 94 07/04/23 09:37 07/04/23 08:00 78 07/04/23 06:30 37.0 C 81 21 93 07/04/23 06:30 106/58 L 07/04/23 06:20 82 17 92 07/04/23 06:10 80 19 94 07/04/23 06:00 89 29 H 94 07/04/23 06:00 128/69 07/04/23 05:50 81 13 94 07/04/23 05:40 82 14 94 07/04/23 05:30 80 13 93 07/04/23 05:30 114/61 07/04/23 05:20 82 14 94 07/04/23 05:10 79 12 96 07/04/23 05:00 85 12 94 07/04/23 05:00 118/63 07/04/23 04:50 79 14 95 07/04/23 04:40 94 H 20 96 07/04/23 04:30 85 13 94 07/04/23 04:30 116/64 07/04/23 04:20 79 12 96 07/04/23 04:10 79 13 96 07/04/23 04:00 84 17 95 07/04/23 04:00 112/60 07/04/23 03:50 78 19 96 07/04/23 03:40 84 19 96 07/04/23 04:38 37.3 C 07/04/23 01:30 36.6 C 88 12 116/66 100 07/04/23 03:30 79 14 96 07/04/23 03:30 114/63 07/04/23 03:20 79 13 96 07/04/23 03:10 76 14 96 07/04/23 03:00 82 12 94 07/04/23 03:00 111/63 07/04/23 02:50 80 13 95 07/04/23 02:40 85 12 96 07/04/23 02:30 119/61 07/04/23 02:40 36.6 C 78 16 111/63 99 07/04/23 02:53 74 07/04/23 02:30 85 14 95 07/04/23 02:20 81 13 96 07/04/23 02:10 78 14 97 07/04/23 02:00 81 14 97 07/04/23 02:00 117/63 07/04/23 01:50 80 12 99 07/04/23 01:40 80 22 99 07/04/23 01:30 77 12 99 07/04/23 01:30 116/62 07/04/23 01:25 116/66 07/04/23 01:25 88 13 100 07/04/23 01:20 78 13 100 07/04/23 01:20 113/61 07/04/23 01:15 112/67 07/04/23 01:15 77 13 100 07/04/23 01:10 74 12 100 07/04/23 01:10 112/64 07/04/23 01:05 75 12 98 07/04/23 01:05 113/65 07/04/23 01:00 79 19 100 07/04/23 01:00 117/67 07/04/23 00:50 71 32 H 07/04/23 00:50 122/70 07/04/23 00:45 114/76 07/04/23 00:45 71 21 100 07/04/23 00:40 72 26 H 100 07/04/23 00:40 122/74 07/04/23 00:35 127/64 07/04/23 00:35 69 37 H 100 07/04/23 00:30 74 24 100 07/04/23 00:30 107/80 07/04/23 00:27 70 31 H 100 07/04/23 00:27 122/70 07/04/23 00:24 69 33 H 100 07/04/23 01:58 36.8 C 80 20 116/62 99 07/03/23 23:35 36.6 C 80 18 114/75 99 07/04/23 00:56 36.8 C 73 24 122/70 99 07/04/23 00:35 37.1 C 78 32 H 107/80 99 07/04/23 00:18 36.6 C 80 18 114/75 99 07/03/23 23:45 36.6 C 79 18 118/69 97 07/03/23 23:40 36.6 C 82 16 116/69 97 07/03/23 23:30 36.6 C 74 16 114/75 99 O2 Del Method O2 Flow Rate 07/04/23 11:04 07/04/23 09:00 07/04/23 09:00 07/04/23 08:30 07/04/23 08:30 07/04/23 08:00 07/04/23 08:00 07/04/23 08:00 07/04/23 07:30 07/04/23 07:30 07/04/23 07:00 07/04/23 07:00 07/04/23 06:45 07/04/23 09:37 Nasal Cannula 2 07/04/23 08:00 07/04/23 06:30 07/04/23 06:30 07/04/23 06:20 07/04/23 06:10 07/04/23 06:00 07/04/23 06:00 07/04/23 05:50 07/04/23 05:40 07/04/23 05:30 07/04/23 05:30 07/04/23 05:20 07/04/23 05:10 07/04/23 05:00 07/04/23 05:00 07/04/23 04:50 07/04/23 04:40 07/04/23 04:30 07/04/23 04:30 07/04/23 04:20 07/04/23 04:10 07/04/23 04:00 07/04/23 04:00 07/04/23 03:50 07/04/23 03:40 07/04/23 04:38 07/04/23 01:30 3 07/04/23 03:30 07/04/23 03:30 07/04/23 03:20 07/04/23 03:10 07/04/23 03:00 07/04/23 03:00 07/04/23 02:50 07/04/23 02:40 07/04/23 02:30 07/04/23 02:40 1 07/04/23 02:53 07/04/23 02:30 07/04/23 02:20 07/04/23 02:10 07/04/23 02:00 07/04/23 02:00 07/04/23 01:50 07/04/23 01:40 07/04/23 01:30 07/04/23 01:30 07/04/23 01:25 07/04/23 01:25 07/04/23 01:20 07/04/23 01:20 07/04/23 01:15 07/04/23 01:15 07/04/23 01:10 07/04/23 01:10 07/04/23 01:05 07/04/23 01:05 07/04/23 01:00 07/04/23 01:00 07/04/23 00:50 07/04/23 00:50 07/04/23 00:45 07/04/23 00:45 07/04/23 00:40 07/04/23 00:40 07/04/23 00:35 07/04/23 00:35 07/04/23 00:30 07/04/23 00:30 07/04/23 00:27 07/04/23 00:27 07/04/23 00:24 07/04/23 01:58 3 07/03/23 23:35 3 07/04/23 00:56 3 07/04/23 00:35 3 07/04/23 00:18 07/03/23 23:45 Oxymask 3 07/03/23 23:40 Oxymask 3 07/03/23 23:30 Oxymask 3 Laboratory Results 07/04/23 07/04/23 07/04/23 Range/Units 10:51 10:51 10:51 WBC (4.8-10.8) K/ul RBC (4.70-6.10) M/uL Hgb (14.0-18.0) g/dl POC Hgb (14.0-18.0) g/dl Hct (42.0-52.0) % POC Hct (42-52) % MCV (80.0-100.0) fL MCH (25.0-34.0) pg MCHC (32.0-36.0) g/dL RDW Std Deviation (36.4-46.3) fL RDW Coeff of Mp (11.5-14.5) % Plt Count Pending (130-400) K/uL MPV (9.4-12.4) fL Immature Gran % (Auto) % Neut % (Auto) % Lymph % (Auto) % [place] % (Auto) % Eos % (Auto) % Baso % (Auto) % Neut # (Auto) (1.40-6.50) K/uL Lymph # (Auto) (1.20-3.40) K/uL [place] # (Auto) (0.11-0.59) K/uL Eos # (Auto) (0.00-0.50) K/uL Baso # (Auto) (0.00-0.20) K/uL Immature Gran # (Auto) (0.01-0.20) K/uL Platelet Estimate (Normal) Anisocytosis Ovalocytes PT (9.0-12.0) Seconds INR (0.9-1.1) APTT (21.0-31.0) Seconds PTT Ratio Fibrinogen (184-400) mg/dl VBG pH (7.36-7.41) VBG pCO2 (38-50) mmHg VBG pO2 mmHg VBG HCO3 mmol/L VBG O2 Saturation % VBG Base Excess mEq/L POC Sodium (135-144) mmol/L Sodium (136-145) mmol/L POC Potassium (3.3-5.0) mmol/L Potassium (3.5-5.1) mmol/L POC Chloride (101-112) mmol/L Chloride (98-107) mmol/L Carbon Dioxide (21-32) mmol/L POC Total CO2 (24-31) mmol/L Anion Gap (3-11) POC Anion Gap (16-25) mmol/L POC BUN (7-18) mg/dl BUN (6-23) mg/dl Creatinine (0.6-1.4) mg/dl POC Creatinine (0.6-1.3) mg/dl Est Cr Clr Drug Dosing ml/min Est GFR ( Amer) ml/min Est GFR (Non-Af Amer) ml/min BUN/Creatinine Ratio (10-20) Glucose (70-99(Fasting)) mg/dl POC Glucose (70-99) mg/dl POC Glucose (other) (70-99) mg/dl Lactate 1.5 (0.4-2.0) mmol/L Calcium (8.6-10.3) mg/dl POC Ioniz Calcium Roddy (1.12-1.32) mmol/l Phosphorus (2.5-4.9) mg/dl Magnesium (1.7-2.4) mg/dl Total Bilirubin (0.2-1.0) mg/dl Direct Bilirubin (0-0.2) mg/dl AST (13-39) U/L ALT (7-52) U/L Alkaline Phosphatase (34-104) U/L Ammonia Pending (18-72) umol/L Troponin I High Sens (0-20) pg/ml Total Protein (6.0-8.3) gm/dl Albumin (3.4-5.0) gm/dl Globulin (2.5-4.0) gm/dl Albumin/Globulin Ratio (0.9-2) Lipase (11-82) U/L Urine Color Urine Appearance (Clear) Urine pH (4.5-7.5) Ur Specific [place] (1.000-1.030) Urine Protein (Negative) Urine Glucose (UA) (Negative) Urine Ketones (Negative) Urine Blood (Negative) Urine Nitrite (Negative) Urine Bilirubin (Negative) Urine Urobilinogen (Negative) Ur Leukocyte Esterase (Negative) Nasal Screen MRSA (PCR) (Negative) Ethyl Alcohol mg/dL (<10.0) mg/dl SARS-CoV-2, RNA, NAAT (NEGATIVE) Blood Type Blood Type Recheck Antibody Screen Crossmatch 07/04/23 07/04/23 07/04/23 Range/Units 10:51 06:22 04:30 WBC (4.8-10.8) K/ul RBC (4.70-6.10) M/uL Hgb 8.8 L (14.0-18.0) g/dl POC Hgb (14.0-18.0) g/dl Hct 25.4 L (42.0-52.0) % POC Hct (42-52) % MCV (80.0-100.0) fL MCH (25.0-34.0) pg MCHC (32.0-36.0) g/dL RDW Std Deviation (36.4-46.3) fL RDW Coeff of Mp (11.5-14.5) % Plt Count (130-400) K/uL MPV (9.4-12.4) fL Immature Gran % (Auto) % Neut % (Auto) % Lymph % (Auto) % [place] % (Auto) % Eos % (Auto) % Baso % (Auto) % Neut # (Auto) (1.40-6.50) K/uL Lymph # (Auto) (1.20-3.40) K/uL [place] # (Auto) (0.11-0.59) K/uL Eos # (Auto) (0.00-0.50) K/uL Baso # (Auto) (0.00-0.20) K/uL Immature Gran # (Auto) (0.01-0.20) K/uL Platelet Estimate (Normal) Anisocytosis Ovalocytes PT 14.5 H (9.0-12.0) Seconds INR 1.3 H (0.9-1.1) APTT 28.4 (21.0-31.0) Seconds PTT Ratio 1.0 Fibrinogen 220 D (184-400) mg/dl VBG pH (7.36-7.41) VBG pCO2 (38-50) mmHg VBG pO2 mmHg VBG HCO3 mmol/L VBG O2 Saturation % VBG Base Excess mEq/L POC Sodium (135-144) mmol/L Sodium (136-145) mmol/L POC Potassium (3.3-5.0) mmol/L Potassium (3.5-5.1) mmol/L POC Chloride (101-112) mmol/L Chloride (98-107) mmol/L Carbon Dioxide (21-32) mmol/L POC Total CO2 (24-31) mmol/L Anion Gap (3-11) POC Anion Gap (16-25) mmol/L POC BUN (7-18) mg/dl BUN (6-23) mg/dl Creatinine (0.6-1.4) mg/dl POC Creatinine (0.6-1.3) mg/dl Est Cr Clr Drug Dosing ml/min Est GFR ( Amer) ml/min Est GFR (Non-Af Amer) ml/min BUN/Creatinine Ratio (10-20) Glucose (70-99(Fasting)) mg/dl POC Glucose 126 H (70-99) mg/dl POC Glucose (other) (70-99) mg/dl Lactate (0.4-2.0) mmol/L Calcium (8.6-10.3) mg/dl POC Ioniz Calcium [place]dy (1.12-1.32) mmol/l Phosphorus (2.5-4.9) mg/dl Magnesium (1.7-2.4) mg/dl Total Bilirubin (0.2-1.0) mg/dl Direct Bilirubin (0-0.2) mg/dl AST (13-39) U/L ALT (7-52) U/L Alkaline Phosphatase (34-104) U/L Ammonia (18-72) umol/L Troponin I High Sens (0-20) pg/ml Total Protein (6.0-8.3) gm/dl Albumin (3.4-5.0) gm/dl Globulin (2.5-4.0) gm/dl Albumin/Globulin Ratio (0.9-2) Lipase (11-82) U/L Urine Color Urine Appearance (Clear) Urine pH (4.5-7.5) Ur Specific [place] (1.000-1.030) Urine Protein (Negative) Urine Glucose (UA) (Negative) Urine Ketones (Negative) Urine Blood (Negative) Urine Nitrite (Negative) Urine Bilirubin (Negative) Urine Urobilinogen (Negative) Ur Leukocyte Esterase (Negative) Nasal Screen MRSA (PCR) (Negative) Ethyl Alcohol mg/dL (<10.0) mg/dl SARS-CoV-2, RNA, NAAT (NEGATIVE) Blood Type Blood Type Recheck Antibody Screen Crossmatch 07/04/23 07/04/23 07/04/23 Range/Units 04:30 04:30 02:06 WBC 2.03 L (4.8-10.8) K/ul RBC 2.82 L (4.70-6.10) M/uL Hgb 8.7 L (14.0-18.0) g/dl POC Hgb (14.0-18.0) g/dl Hct 25.5 L (42.0-52.0) % POC Hct (42-52) % MCV 90.4 (80.0-100.0) fL MCH 30.9 (25.0-34.0) pg MCHC 34.1 (32.0-36.0) g/dL RDW Std Deviation 58.7 H (36.4-46.3) fL RDW Coeff of Mp 18.6 H (11.5-14.5) % Plt Count 27 L* (130-400) K/uL MPV 10.2 (9.4-12.4) fL Immature Gran % (Auto) 0.0 % Neut % (Auto) 52.7 % Lymph % (Auto) 28.1 % [place] % (Auto) 12.8 % Eos % (Auto) 4.9 % Baso % (Auto) 1.5 % Neut # (Auto) 1.07 L (1.40-6.50) K/uL Lymph # (Auto) 0.57 L (1.20-3.40) K/uL [place] # (Auto) 0.26 (0.11-0.59) K/uL Eos # (Auto) 0.10 (0.00-0.50) K/uL Baso # (Auto) 0.03 (0.00-0.20) K/uL Immature Gran # (Auto) 0.00 L (0.01-0.20) K/uL Platelet Estimate Signific. Decreased L (Normal) Anisocytosis Ovalocytes PT (9.0-12.0) Seconds INR (0.9-1.1) APTT (21.0-31.0) Seconds PTT Ratio Fibrinogen (184-400) mg/dl VBG pH (7.36-7.41) VBG pCO2 (38-50) mmHg VBG pO2 mmHg VBG HCO3 mmol/L VBG O2 Saturation % VBG Base Excess mEq/L POC Sodium (135-144) mmol/L Sodium 141 (136-145) mmol/L POC Potassium (3.3-5.0) mmol/L Potassium 3.7 D (3.5-5.1) mmol/L POC Chloride (101-112) mmol/L Chloride 105 (98-107) mmol/L Carbon Dioxide 26 (21-32) mmol/L POC Total CO2 (24-31) mmol/L Anion Gap 10 (3-11) POC Anion Gap (16-25) mmol/L POC BUN (7-18) mg/dl BUN 12 (6-23) mg/dl Creatinine 0.56 L (0.6-1.4) mg/dl POC Creatinine (0.6-1.3) mg/dl Est Cr Clr Drug Dosing 132.0 ml/min Est GFR ( Amer) 133.1 ml/min Est GFR (Non-Af Amer) 114.8 ml/min BUN/Creatinine Ratio 21.4 H (10-20) Glucose 109 H (70-99(Fasting)) mg/dl POC Glucose 109 H (70-99) mg/dl POC Glucose (other) (70-99) mg/dl Lactate (0.4-2.0) mmol/L Calcium 7.7 L (8.6-10.3) mg/dl POC Ioniz Calcium [place]dy (1.12-1.32) mmol/l Phosphorus 3.3 (2.5-4.9) mg/dl Magnesium 1.4 L (1.7-2.4) mg/dl Total Bilirubin 4.6 H (0.2-1.0) mg/dl Direct Bilirubin 2.1 H (0-0.2) mg/dl AST 123 H (13-39) U/L ALT 32 (7-52) U/L Alkaline Phosphatase 92 (34-104) U/L Ammonia (18-72) umol/L Troponin I High Sens (0-20) pg/ml Total Protein 6.1 (6.0-8.3) gm/dl Albumin 2.9 L (3.4-5.0) gm/dl Globulin (2.5-4.0) gm/dl Albumin/Globulin Ratio (0.9-2) Lipase 90 H (11-82) U/L Urine Color Urine Appearance (Clear) Urine pH (4.5-7.5) Ur Specific [place] (1.000-1.030) Urine Protein (Negative) Urine Glucose (UA) (Negative) Urine Ketones (Negative) Urine Blood (Negative) Urine Nitrite (Negative) Urine Bilirubin (Negative) Urine Urobilinogen (Negative) Ur Leukocyte Esterase (Negative) Nasal Screen MRSA (PCR) (Negative) Ethyl Alcohol mg/dL (<10.0) mg/dl SARS-CoV-2, RNA, NAAT (NEGATIVE) Blood Type Blood Type Recheck Antibody Screen Crossmatch 07/04/23 07/04/23 07/04/23 Range/Units 00:59 00:59 00:59 WBC (4.8-10.8) K/ul RBC (4.70-6.10) M/uL Hgb (14.0-18.0) g/dl POC Hgb (14.0-18.0) g/dl Hct (42.0-52.0) % POC Hct (42-52) % MCV (80.0-100.0) fL MCH (25.0-34.0) pg MCHC (32.0-36.0) g/dL RDW Std Deviation (36.4-46.3) fL RDW Coeff of Mp (11.5-14.5) % Plt Count (130-400) K/uL MPV (9.4-12.4) fL Immature Gran % (Auto) % Neut % (Auto) % Lymph % (Auto) % [place] % (Auto) % Eos % (Auto) % Baso % (Auto) % Neut # (Auto) (1.40-6.50) K/uL Lymph # (Auto) (1.20-3.40) K/uL [place] # (Auto) (0.11-0.59) K/uL Eos # (Auto) (0.00-0.50) K/uL Baso # (Auto) (0.00-0.20) K/uL Immature Gran # (Auto) (0.01-0.20) K/uL Platelet Estimate (Normal) Anisocytosis Ovalocytes PT (9.0-12.0) Seconds INR (0.9-1.1) APTT (21.0-31.0) Seconds PTT Ratio Fibrinogen (184-400) mg/dl VBG pH 7.33 L (7.36-7.41) VBG pCO2 45 (38-50) mmHg VBG pO2 34 mmHg VBG HCO3 24 mmol/L VBG O2 Saturation < 60.0 % VBG Base Excess -2.4 mEq/L POC Sodium (135-144) mmol/L Sodium 138 (136-145) mmol/L POC Potassium (3.3-5.0) mmol/L Potassium 4.8 D (3.5-5.1) mmol/L POC Chloride (101-112) mmol/L Chloride 104 (98-107) mmol/L Carbon Dioxide 22 (21-32) mmol/L POC Total CO2 (24-31) mmol/L Anion Gap 12 H (3-11) POC Anion Gap (16-25) mmol/L POC BUN (7-18) mg/dl BUN 13 (6-23) mg/dl Creatinine 0.65 (0.6-1.4) mg/dl POC Creatinine (0.6-1.3) mg/dl Est Cr Clr Drug Dosing 93.3 ml/min Est GFR ( Amer) 125.2 ml/min Est GFR (Non-Af Amer) 108.0 ml/min BUN/Creatinine Ratio 20.0 (10-20) Glucose 114 H (70-99(Fasting)) mg/dl POC Glucose (70-99) mg/dl POC Glucose (other) (70-99) mg/dl Lactate 5.2 H* (0.4-2.0) mmol/L Calcium 7.8 L (8.6-10.3) mg/dl POC Ioniz Calcium [place] (1.12-1.32) mmol/l Phosphorus 3.9 (2.5-4.9) mg/dl Magnesium 1.2 L (1.7-2.4) mg/dl Total Bilirubin 5.1 H (0.2-1.0) mg/dl Direct Bilirubin (0-0.2) mg/dl AST 133 H (13-39) U/L ALT 34 (7-52) U/L Alkaline Phosphatase 98 (34-104) U/L Ammonia (18-72) umol/L Troponin I High Sens (0-20) pg/ml Total Protein 6.1 (6.0-8.3) gm/dl Albumin 2.9 L (3.4-5.0) gm/dl Globulin 3.2 (2.5-4.0) gm/dl Albumin/Globulin Ratio 0.9 (0.9-2) Lipase (11-82) U/L Urine Color Urine Appearance (Clear) Urine pH (4.5-7.5) Ur Specific [place] (1.000-1.030) Urine Protein (Negative) Urine Glucose (UA) (Negative) Urine Ketones (Negative) Urine Blood (Negative) Urine Nitrite (Negative) Urine Bilirubin (Negative) Urine Urobilinogen (Negative) Ur Leukocyte Esterase (Negative) Nasal Screen MRSA (PCR) (Negative) Ethyl Alcohol mg/dL (<10.0) mg/dl SARS-CoV-2, RNA, NAAT (NEGATIVE) Blood Type Blood Type Recheck Antibody Screen Crossmatch 07/04/23 07/03/23 07/03/23 Range/Units 00:59 Unknown 21:42 WBC 2.21 L (4.8-10.8) K/ul RBC 3.04 L (4.70-6.10) M/uL Hgb 9.6 L (14.0-18.0) g/dl POC Hgb (14.0-18.0) g/dl Hct 28.1 L (42.0-52.0) % POC Hct (42-52) % MCV 92.4 D (80.0-100.0) fL MCH 31.6 (25.0-34.0) pg MCHC 34.2 (32.0-36.0) g/dL RDW Std Deviation 60.4 H (36.4-46.3) fL RDW Coeff of Mp 18.6 H (11.5-14.5) % Plt Count 30 L (130-400) K/uL MPV 10.1 (9.4-12.4) fL Immature Gran % (Auto) % Neut % (Auto) % Lymph % (Auto) % [place] % (Auto) % Eos % (Auto) % Baso % (Auto) % Neut # (Auto) (1.40-6.50) K/uL Lymph # (Auto) (1.20-3.40) K/uL [place] # (Auto) (0.11-0.59) K/uL Eos # (Auto) (0.00-0.50) K/uL Baso # (Auto) (0.00-0.20) K/uL Immature Gran # (Auto) (0.01-0.20) K/uL Platelet Estimate (Normal) Anisocytosis Ovalocytes PT (9.0-12.0) Seconds INR (0.9-1.1) APTT (21.0-31.0) Seconds PTT Ratio Fibrinogen 131 L (184-400) mg/dl VBG pH (7.36-7.41) VBG pCO2 (38-50) mmHg VBG pO2 mmHg VBG HCO3 mmol/L VBG O2 Saturation % VBG Base Excess mEq/L POC Sodium (135-144) mmol/L Sodium (136-145) mmol/L POC Potassium (3.3-5.0) mmol/L Potassium (3.5-5.1) mmol/L POC Chloride (101-112) mmol/L Chloride (98-107) mmol/L Carbon Dioxide (21-32) mmol/L POC Total CO2 (24-31) mmol/L Anion Gap (3-11) POC Anion Gap (16-25) mmol/L POC BUN (7-18) mg/dl BUN (6-23) mg/dl Creatinine (0.6-1.4) mg/dl POC Creatinine (0.6-1.3) mg/dl Est Cr Clr Drug Dosing ml/min Est GFR ( Amer) ml/min Est GFR (Non-Af Amer) ml/min BUN/Creatinine Ratio (10-20) Glucose (70-99(Fasting)) mg/dl POC Glucose (70-99) mg/dl POC Glucose (other) (70-99) mg/dl Lactate (0.4-2.0) mmol/L Calcium (8.6-10.3) mg/dl POC Ioniz Calcium [place] (1.12-1.32) mmol/l Phosphorus (2.5-4.9) mg/dl Magnesium (1.7-2.4) mg/dl Total Bilirubin (0.2-1.0) mg/dl Direct Bilirubin (0-0.2) mg/dl AST (13-39) U/L ALT (7-52) U/L Alkaline Phosphatase (34-104) U/L Ammonia (18-72) umol/L Troponin I High Sens (0-20) pg/ml Total Protein (6.0-8.3) gm/dl Albumin (3.4-5.0) gm/dl Globulin (2.5-4.0) gm/dl Albumin/Globulin Ratio (0.9-2) Lipase (11-82) U/L Urine Color Urine Appearance (Clear) Urine pH (4.5-7.5) Ur Specific [place] (1.000-1.030) Urine Protein (Negative) Urine Glucose (UA) (Negative) Urine Ketones (Negative) Urine Blood (Negative) Urine Nitrite (Negative) Urine Bilirubin (Negative) Urine Urobilinogen (Negative) Ur Leukocyte Esterase (Negative) Nasal Screen MRSA (PCR) Negative (Negative) Ethyl Alcohol mg/dL (<10.0) mg/dl SARS-CoV-2, RNA, NAAT (NEGATIVE) Blood Type Blood Type Recheck Antibody Screen Crossmatch 07/03/23 07/03/23 07/03/23 Range/Units 21:15 20:57 18:36 WBC (4.8-10.8) K/ul RBC (4.70-6.10) M/uL Hgb (14.0-18.0) g/dl POC Hgb (14.0-18.0) g/dl Hct (42.0-52.0) % POC Hct (42-52) % MCV (80.0-100.0) fL MCH (25.0-34.0) pg MCHC (32.0-36.0) g/dL RDW Std Deviation (36.4-46.3) fL RDW Coeff of Mp (11.5-14.5) % Plt Count (130-400) K/uL MPV (9.4-12.4) fL Immature Gran % (Auto) % Neut % (Auto) % Lymph % (Auto) % [place] % (Auto) % Eos % (Auto) % Baso % (Auto) % Neut # (Auto) (1.40-6.50) K/uL Lymph # (Auto) (1.20-3.40) K/uL [place] # (Auto) (0.11-0.59) K/uL Eos # (Auto) (0.00-0.50) K/uL Baso # (Auto) (0.00-0.20) K/uL Immature Gran # (Auto) (0.01-0.20) K/uL Platelet Estimate (Normal) Anisocytosis Ovalocytes PT (9.0-12.0) Seconds INR (0.9-1.1) APTT (21.0-31.0) Seconds PTT Ratio Fibrinogen (184-400) mg/dl VBG pH (7.36-7.41) VBG pCO2 (38-50) mmHg VBG pO2 mmHg VBG HCO3 mmol/L VBG O2 Saturation % VBG Base Excess mEq/L POC Sodium (135-144) mmol/L Sodium (136-145) mmol/L POC Potassium (3.3-5.0) mmol/L Potassium (3.5-5.1) mmol/L POC Chloride (101-112) mmol/L Chloride (98-107) mmol/L Carbon Dioxide (21-32) mmol/L POC Total CO2 (24-31) mmol/L Anion Gap (3-11) POC Anion Gap (16-25) mmol/L POC BUN (7-18) mg/dl BUN (6-23) mg/dl Creatinine (0.6-1.4) mg/dl POC Creatinine (0.6-1.3) mg/dl Est Cr Clr Drug Dosing ml/min Est GFR ( Amer) ml/min Est GFR (Non-Af Amer) ml/min BUN/Creatinine Ratio (10-20) Glucose (70-99(Fasting)) mg/dl POC Glucose (70-99) mg/dl POC Glucose (other) (70-99) mg/dl Lactate 7.6 H* (0.4-2.0) mmol/L Calcium (8.6-10.3) mg/dl POC Ioniz Calcium Roddy (1.12-1.32) mmol/l Phosphorus (2.5-4.9) mg/dl Magnesium (1.7-2.4) mg/dl Total Bilirubin (0.2-1.0) mg/dl Direct Bilirubin (0-0.2) mg/dl AST (13-39) U/L ALT (7-52) U/L Alkaline Phosphatase (34-104) U/L Ammonia (18-72) umol/L Troponin I High Sens (0-20) pg/ml Total Protein (6.0-8.3) gm/dl Albumin (3.4-5.0) gm/dl Globulin (2.5-4.0) gm/dl Albumin/Globulin Ratio (0.9-2) Lipase (11-82) U/L Urine Color Yellow Urine Appearance Clear (Clear) Urine pH 6.0 (4.5-7.5) Ur Specific [place] 1.045 H (1.000-1.030) Urine Protein Negative (Negative) Urine Glucose (UA) Negative (Negative) Urine Ketones Negative (Negative) Urine Blood Negative (Negative) Urine Nitrite Negative (Negative) Urine Bilirubin Negative (Negative) Urine Urobilinogen Negative (Negative) Ur Leukocyte Esterase Negative (Negative) Nasal Screen MRSA (PCR) (Negative) Ethyl Alcohol mg/dL (<10.0) mg/dl SARS-CoV-2, RNA, NAAT NEGATIVE (NEGATIVE) Blood Type Blood Type Recheck Antibody Screen Crossmatch 07/03/23 07/03/23 07/03/23 Range/Units 18:30 18:02 18:01 WBC (4.8-10.8) K/ul RBC (4.70-6.10) M/uL Hgb (14.0-18.0) g/dl POC Hgb 8.2 L (14.0-18.0) g/dl Hct (42.0-52.0) % POC Hct 24 L (42-52) % MCV (80.0-100.0) fL MCH (25.0-34.0) pg MCHC (32.0-36.0) g/dL RDW Std Deviation (36.4-46.3) fL RDW Coeff of Mp (11.5-14.5) % Plt Count (130-400) K/uL MPV (9.4-12.4) fL Immature Gran % (Auto) % Neut % (Auto) % Lymph % (Auto) % [place] % (Auto) % Eos % (Auto) % Baso % (Auto) % Neut # (Auto) (1.40-6.50) K/uL Lymph # (Auto) (1.20-3.40) K/uL [place] # (Auto) (0.11-0.59) K/uL Eos # (Auto) (0.00-0.50) K/uL Baso # (Auto) (0.00-0.20) K/uL Immature Gran # (Auto) (0.01-0.20) K/uL Platelet Estimate (Normal) Anisocytosis Ovalocytes PT (9.0-12.0) Seconds INR (0.9-1.1) APTT (21.0-31.0) Seconds PTT Ratio Fibrinogen (184-400) mg/dl VBG pH (7.36-7.41) VBG pCO2 (38-50) mmHg VBG pO2 mmHg VBG HCO3 mmol/L VBG O2 Saturation % VBG Base Excess mEq/L POC Sodium 137 (135-144) mmol/L Sodium (136-145) mmol/L POC Potassium 2.8 L (3.3-5.0) mmol/L Potassium (3.5-5.1) mmol/L POC Chloride 95 L (101-112) mmol/L Chloride (98-107) mmol/L Carbon Dioxide (21-32) mmol/L POC Total CO2 23 L (24-31) mmol/L Anion Gap (3-11) POC Anion Gap 22.0 (16-25) mmol/L POC BUN 9 (7-18) mg/dl BUN (6-23) mg/dl Creatinine (0.6-1.4) mg/dl POC Creatinine 1.3 (0.6-1.3) mg/dl Est Cr Clr Drug Dosing ml/min Est GFR ( Amer) ml/min Est GFR (Non-Af Amer) ml/min BUN/Creatinine Ratio (10-20) Glucose (70-99(Fasting)) mg/dl POC Glucose (70-99) mg/dl POC Glucose (other) 110 H (70-99) mg/dl Lactate (0.4-2.0) mmol/L Calcium (8.6-10.3) mg/dl POC Ioniz Calcium Roddy 1.01 L (1.12-1.32) mmol/l Phosphorus (2.5-4.9) mg/dl Magnesium (1.7-2.4) mg/dl Total Bilirubin (0.2-1.0) mg/dl Direct Bilirubin (0-0.2) mg/dl AST (13-39) U/L ALT (7-52) U/L Alkaline Phosphatase (34-104) U/L Ammonia (18-72) umol/L Troponin I High Sens (0-20) pg/ml Total Protein (6.0-8.3) gm/dl Albumin (3.4-5.0) gm/dl Globulin (2.5-4.0) gm/dl Albumin/Globulin Ratio (0.9-2) Lipase (11-82) U/L Urine Color Urine Appearance (Clear) Urine pH (4.5-7.5) Ur Specific [place] (1.000-1.030) Urine Protein (Negative) Urine Glucose (UA) (Negative) Urine Ketones (Negative) Urine Blood (Negative) Urine Nitrite (Negative) Urine Bilirubin (Negative) Urine Urobilinogen (Negative) Ur Leukocyte Esterase (Negative) Nasal Screen MRSA (PCR) (Negative) Ethyl Alcohol mg/dL 215.2 H (<10.0) mg/dl SARS-CoV-2, RNA, NAAT (NEGATIVE) Blood Type Blood Type Recheck O Positive Antibody Screen Crossmatch 07/03/23 07/03/23 07/03/23 Range/Units 18:01 18:01 18:01 WBC (4.8-10.8) K/ul RBC (4.70-6.10) M/uL Hgb (14.0-18.0) g/dl POC Hgb (14.0-18.0) g/dl Hct (42.0-52.0) % POC Hct (42-52) % MCV (80.0-100.0) fL MCH (25.0-34.0) pg MCHC (32.0-36.0) g/dL RDW Std Deviation (36.4-46.3) fL RDW Coeff of Mp (11.5-14.5) % Plt Count (130-400) K/uL MPV (9.4-12.4) fL Immature Gran % (Auto) % Neut % (Auto) % Lymph % (Auto) % [place] % (Auto) % Eos % (Auto) % Baso % (Auto) % Neut # (Auto) (1.40-6.50) K/uL Lymph # (Auto) (1.20-3.40) K/uL [place] # (Auto) (0.11-0.59) K/uL Eos # (Auto) (0.00-0.50) K/uL Baso # (Auto) (0.00-0.20) K/uL Immature Gran # (Auto) (0.01-0.20) K/uL Platelet Estimate (Normal) Anisocytosis Ovalocytes PT (9.0-12.0) Seconds INR (0.9-1.1) APTT (21.0-31.0) Seconds PTT Ratio Fibrinogen (184-400) mg/dl VBG pH 7.44 H (7.36-7.41) VBG pCO2 33 L (38-50) mmHg VBG pO2 51 mmHg VBG HCO3 22 mmol/L VBG O2 Saturation 76.3 % VBG Base Excess -1.1 mEq/L POC Sodium (135-144) mmol/L Sodium (136-145) mmol/L POC Potassium (3.3-5.0) mmol/L Potassium (3.5-5.1) mmol/L POC Chloride (101-112) mmol/L Chloride (98-107) mmol/L Carbon Dioxide (21-32) mmol/L POC Total CO2 (24-31) mmol/L Anion Gap (3-11) POC Anion Gap (16-25) mmol/L POC BUN (7-18) mg/dl BUN (6-23) mg/dl Creatinine (0.6-1.4) mg/dl POC Creatinine (0.6-1.3) mg/dl Est Cr Clr Drug Dosing ml/min Est GFR ( Amer) ml/min Est GFR (Non-Af Amer) ml/min BUN/Creatinine Ratio (10-20) Glucose (70-99(Fasting)) mg/dl POC Glucose (70-99) mg/dl POC Glucose (other) (70-99) mg/dl Lactate 8.4 H* (0.4-2.0) mmol/L Calcium (8.6-10.3) mg/dl POC Ioniz Calcium [place]dy (1.12-1.32) mmol/l Phosphorus (2.5-4.9) mg/dl Magnesium (1.7-2.4) mg/dl Total Bilirubin (0.2-1.0) mg/dl Direct Bilirubin (0-0.2) mg/dl AST (13-39) U/L ALT (7-52) U/L Alkaline Phosphatase (34-104) U/L Ammonia 84.0 H (18-72) umol/L Troponin I High Sens (0-20) pg/ml Total Protein (6.0-8.3) gm/dl Albumin (3.4-5.0) gm/dl Globulin (2.5-4.0) gm/dl Albumin/Globulin Ratio (0.9-2) Lipase (11-82) U/L Urine Color Urine Appearance (Clear) Urine pH (4.5-7.5) Ur Specific [place] (1.000-1.030) Urine Protein (Negative) Urine Glucose (UA) (Negative) Urine Ketones (Negative) Urine Blood (Negative) Urine Nitrite (Negative) Urine Bilirubin (Negative) Urine Urobilinogen (Negative) Ur Leukocyte Esterase (Negative) Nasal Screen MRSA (PCR) (Negative) Ethyl Alcohol mg/dL (<10.0) mg/dl SARS-CoV-2, RNA, NAAT (NEGATIVE) Blood Type Blood Type Recheck Antibody Screen Crossmatch 07/03/23 07/03/23 07/03/23 Range/Units 18:01 18:01 18:01 WBC 3.82 L (4.8-10.8) K/ul RBC 2.28 L (4.70-6.10) M/uL Hgb 7.6 L (14.0-18.0) g/dl POC Hgb (14.0-18.0) g/dl Hct 23.3 L (42.0-52.0) % POC Hct (42-52) % MCV 102.2 H (80.0-100.0) fL MCH 33.3 (25.0-34.0) pg MCHC 32.6 (32.0-36.0) g/dL RDW Std Deviation 65.7 H (36.4-46.3) fL RDW Coeff of Mp 17.4 H (11.5-14.5) % Plt Count 42 L (130-400) K/uL MPV 9.8 (9.4-12.4) fL Immature Gran % (Auto) 0.3 % Neut % (Auto) 35.3 % Lymph % (Auto) 45.8 % [place] % (Auto) 12.3 % Eos % (Auto) 4.7 % Baso % (Auto) 1.6 % Neut # (Auto) 1.35 L (1.40-6.50) K/uL Lymph # (Auto) 1.75 (1.20-3.40) K/uL [place] # (Auto) 0.47 (0.11-0.59) K/uL Eos # (Auto) 0.18 (0.00-0.50) K/uL Baso # (Auto) 0.06 (0.00-0.20) K/uL Immature Gran # (Auto) 0.01 (0.01-0.20) K/uL Platelet Estimate Decreased L (Normal) Anisocytosis Present Ovalocytes 1+ PT 17.9 H (9.0-12.0) Seconds INR 1.7 H (0.9-1.1) APTT 29.6 (21.0-31.0) Seconds PTT Ratio 1.0 Fibrinogen (184-400) mg/dl VBG pH (7.36-7.41) VBG pCO2 (38-50) mmHg VBG pO2 mmHg VBG HCO3 mmol/L VBG O2 Saturation % VBG Base Excess mEq/L POC Sodium (135-144) mmol/L Sodium 133 L (136-145) mmol/L POC Potassium (3.3-5.0) mmol/L Potassium 2.7 L (3.5-5.1) mmol/L POC Chloride (101-112) mmol/L Chloride 96 L (98-107) mmol/L Carbon Dioxide 24 (21-32) mmol/L POC Total CO2 (24-31) mmol/L Anion Gap 13 H (3-11) POC Anion Gap (16-25) mmol/L POC BUN (7-18) mg/dl BUN 11 (6-23) mg/dl Creatinine 0.81 (0.6-1.4) mg/dl POC Creatinine (0.6-1.3) mg/dl Est Cr Clr Drug Dosing 74.9 ml/min Est GFR ( Amer) 114.3 ml/min Est GFR (Non-Af Amer) 98.7 ml/min BUN/Creatinine Ratio 13.6 (10-20) Glucose 106 H (70-99(Fasting)) mg/dl POC Glucose (70-99) mg/dl POC Glucose (other) (70-99) mg/dl Lactate (0.4-2.0) mmol/L Calcium 8.6 (8.6-10.3) mg/dl POC Ioniz Calcium Roddy (1.12-1.32) mmol/l Phosphorus (2.5-4.9) mg/dl Magnesium (1.7-2.4) mg/dl Total Bilirubin 4.0 H (0.2-1.0) mg/dl Direct Bilirubin (0-0.2) mg/dl AST 195 H (13-39) U/L ALT 44 (7-52) U/L Alkaline Phosphatase 151 H (34-104) U/L Ammonia (18-72) umol/L Troponin I High Sens 9.3 (0-20) pg/ml Total Protein 7.2 (6.0-8.3) gm/dl Albumin 2.9 L (3.4-5.0) gm/dl Globulin 4.3 H (2.5-4.0) gm/dl Albumin/Globulin Ratio 0.7 L (0.9-2) Lipase 132 H (11-82) U/L Urine Color Urine Appearance (Clear) Urine pH (4.5-7.5) Ur Specific [place] (1.000-1.030) Urine Protein (Negative) Urine Glucose (UA) (Negative) Urine Ketones (Negative) Urine Blood (Negative) Urine Nitrite (Negative) Urine Bilirubin (Negative) Urine Urobilinogen (Negative) Ur Leukocyte Esterase (Negative) Nasal Screen MRSA (PCR) (Negative) Ethyl Alcohol mg/dL (<10.0) mg/dl SARS-CoV-2, RNA, NAAT (NEGATIVE) Blood Type Blood Type Recheck Antibody Screen Crossmatch 07/03/23 Range/Units 18:01 WBC (4.8-10.8) K/ul RBC (4.70-6.10) M/uL Hgb (14.0-18.0) g/dl POC Hgb (14.0-18.0) g/dl Hct (42.0-52.0) % POC Hct (42-52) % MCV (80.0-100.0) fL MCH (25.0-34.0) pg MCHC (32.0-36.0) g/dL RDW Std Deviation (36.4-46.3) fL RDW Coeff of Mp (11.5-14.5) % Plt Count (130-400) K/uL MPV (9.4-12.4) fL Immature Gran % (Auto) % Neut % (Auto) % Lymph % (Auto) % [place] % (Auto) % Eos % (Auto) % Baso % (Auto) % Neut # (Auto) (1.40-6.50) K/uL Lymph # (Auto) (1.20-3.40) K/uL [place] # (Auto) (0.11-0.59) K/uL Eos # (Auto) (0.00-0.50) K/uL Baso # (Auto) (0.00-0.20) K/uL Immature Gran # (Auto) (0.01-0.20) K/uL Platelet Estimate (Normal) Anisocytosis Ovalocytes PT (9.0-12.0) Seconds INR (0.9-1.1) APTT (21.0-31.0) Seconds PTT Ratio Fibrinogen (184-400) mg/dl VBG pH (7.36-7.41) VBG pCO2 (38-50) mmHg VBG pO2 mmHg VBG HCO3 mmol/L VBG O2 Saturation % VBG Base Excess mEq/L POC Sodium (135-144) mmol/L Sodium (136-145) mmol/L POC Potassium (3.3-5.0) mmol/L Potassium (3.5-5.1) mmol/L POC Chloride (101-112) mmol/L Chloride (98-107) mmol/L Carbon Dioxide (21-32) mmol/L POC Total CO2 (24-31) mmol/L Anion Gap (3-11) POC Anion Gap (16-25) mmol/L POC BUN (7-18) mg/dl BUN (6-23) mg/dl Creatinine (0.6-1.4) mg/dl POC Creatinine (0.6-1.3) mg/dl Est Cr Clr Drug Dosing ml/min Est GFR ( Amer) ml/min Est GFR (Non-Af Amer) ml/min BUN/Creatinine Ratio (10-20) Glucose (70-99(Fasting)) mg/dl POC Glucose (70-99) mg/dl POC Glucose (other) (70-99) mg/dl Lactate (0.4-2.0) mmol/L Calcium (8.6-10.3) mg/dl POC Ioniz Calcium [place]dy (1.12-1.32) mmol/l Phosphorus (2.5-4.9) mg/dl Magnesium (1.7-2.4) mg/dl Total Bilirubin (0.2-1.0) mg/dl Direct Bilirubin (0-0.2) mg/dl AST (13-39) U/L ALT (7-52) U/L Alkaline Phosphatase (34-104) U/L Ammonia (18-72) umol/L Troponin I High Sens (0-20) pg/ml Total Protein (6.0-8.3) gm/dl Albumin (3.4-5.0) gm/dl Globulin (2.5-4.0) gm/dl Albumin/Globulin Ratio (0.9-2) Lipase (11-82) U/L Urine Color Urine Appearance (Clear) Urine pH (4.5-7.5) Ur Specific [place] (1.000-1.030) Urine Protein (Negative) Urine Glucose (UA) (Negative) Urine Ketones (Negative) Urine Blood (Negative) Urine Nitrite (Negative) Urine Bilirubin (Negative) Urine Urobilinogen (Negative) Ur Leukocyte Esterase (Negative) Nasal Screen MRSA (PCR) (Negative) Ethyl Alcohol mg/dL (<10.0) mg/dl SARS-CoV-2, RNA, NAAT (NEGATIVE) Blood Type O Positive Blood Type Recheck Antibody Screen NEGATIVE Crossmatch See Detail
[2023-07-04 11:27] LABS: Platelet Count 29 K/uL (130-400)
--- NOTE | 2023-07-04 11:53 | Discharge Summary ---
Date of Service July 04, 2023 Principal Diagnosis Upper GI bleed Hypovolemic shock Grade 3 esophageal varices status post endoscopy and banding Discharge Exam Constitutional: Awake, alert orient x3; Respiratory: normal respiratory effort, lungs clear to auscultation, no wheeze, rales, rhonchi. Normal insp/exp effort, no accessory muscle use Cardiovascular: RRR, no murmur, no edema Vessels: no JVD or carotid bruit Chest: normal inspection of chest Abdomen: Slightly distended, nontender. Musculoskeletal: no cyanosis or clubbing, extremities motor strength 5/5 Skin: no rashes, warm and dry normal turgor Neurologic: PERRL, EOMI, accommodation nl, no face palsy, no dysarthria CN's II- XI intact bilaterally and moves all extremities Psychiatric: A+Ox3, euthymic affect Discharge Data Allergies Allergy/AdvReac Type Severity Reaction Status Date / Time No Known Allergies Allergy Unverified 07/03/23 19:47 Consultations 07/03/23 19:16 ED Decision to Admit Stat 07/03/23 20:37 Consult Gastroenterology Stat 07/04/23 00:13 Consult [place] Routine Procedures Performed Operation Date: 07/03/23 22:00 Actual Procedures p Esophagogastroduodenoscopy - Jerilyn Carvajal Jr, MD Ordered Studies 07/03/23 17:59 CT Abd and Pelvis [CT abd pelvis IV con only] Stat Hospital Course (1) Hemorrhagic shock: 58-year-old male history of alcoholic liver cirrhosis presented to the ED with hematemesis. Patient was hypotensive on presentation with elevated lactic acid of 8.4 with active vomiting. He was transfused 4 units of packed RBC, [address] abdomen and pelvis showed cirrhosis and signs of portal hypertension. Patient underwent EGD by GI; found to have grade 3 esophageal varices which were banded. Red blood was seen in the gastric fundus and in the gastric body and antrum. Patient was started on octreotide drip and admitted to ICU for closer monitoring. Discussion was done by ED physician with [facility] for transfer given the complexity. Patient also stated that he gets his regular care there as well. His hemoglobin remained stable around 8 after the initial resuscitation. Platelet count of 29,000. Patient was agreeable for the transfer. Total Time Total Time Spent Total Time Spent (In Minutes): 45 Total Time Includes: Examination of the Patient, Discharge Planning, Medication Reconciliation, Communication With Other Providers and Other Discharge Plan Discharge Items Patient Disposition: Transfer Acute Care Hospital Reason For Visit: GI BLEED ACUTE Discharge Diagnosis: Upper GI bleed Hypovolemic shock Grade 3 esophageal varices status post banded Activity: Resume your previous activity Non-emergency contact: Primary Care Provider Call non-emergency contact if: you have any medication questions Follow-up/Referrals: PCP,NO [Primary Care Provider] - Diet: Regular Addtl Attending Provider Instructions: 58-year-old male history of alcoholic liver cirrhosis presented to the ED with hematemesis. Patient was hypotensive on presentation with elevated lactic acid of 8.4 with active hematemesis. He was transfused 4 units of packed RBC, [address] abdomen and pelvis showed cirrhosis and signs of portal hypertension. Patient underwent EGD by GI; found to have grade 3 esophageal varices which were banded. Red blood was seen in the gastric fundus and in the gastric body and antrum. Patient was started on octreotide drip and admitted to ICU for closer monitoring. Discussion was done by ED physician with [facility] for transfer given the complexity. Patient also stated that he gets his regular care there as well. His hemoglobin remained stable around 8 after the initial resuscitation. Platelet count of 29,000. Patient was agreeable for the transfer. Addtl Raw Material Handler Provider Instructions: Current Inpatient Medications Octreotide Acetate 500 mcg/ (Sodium Chloride) 100.5 mls @ 10.05 mls/hr IV .Q10H [facility] Stop: 08/02/23 17:59 Last Admin: 07/04/23 03:17 Dose: 50 mcg/hr, 10.1 mls/hr Ceftriaxone Sodium 2,000 mg/ (Dextrose) 50 mls @ 100 mls/hr IV Q24H [facility]; Protocol Stop: 07/14/23 00:29 Last Infusion: 07/04/23 01:19 Dose: Infused Parenteral Electrolytes (Plasma-Lyte A Ph 7.4) 1,000 mls @ 80 mls/hr IV .[id number] [facility] Stop: 08/02/23 23:44 Last Infusion: 07/04/23 02:51 Dose: 80 mls/hr Folic Acid 1 mg/ Syringe 10 mls @ 5 mls/min IV QAM [facility] Stop: 08/03/23 08:59 Last Admin: 10/26/23 09:13 Dose: 5 mls/min Thiamine HCl 100 mg/ Syringe 10 mls @ 2 mls/min IV QAM [facility] Stop: 08/03/23 08:59 Last Admin: 07/04/23 09:13 Dose: 2 mls/min Pantoprazole Sodium 40 mg/ (Syringe) 10 mls @ 5 mls/min IV BID [facility] Stop: 08/03/23 11:59 Lactulose (Lactulose 200gm/700ml Wtr Enema) 200 gm SC Q8H [facility] Stop: 08/03/23 00:29 Last Admin: 07/04/23 11:32 Dose: Not Given Lorazepam (Lorazepam 2 Mg/1 Ml Vial) 3 mg IV ONCE PRN; Protocol PRN Reason: EtOH Withdrawal AWSS Score 10+ Lorazepam (Lorazepam 2 Mg/1 Ml Vial) 2 mg IV UD PRN; Protocol PRN Reason: EtOH Withdrawal AWSS Score 8,9 Stop: 08/02/23 23:56 Last Admin: 07/04/23 00:59 Dose: 2 mg Lorazepam (Lorazepam 2 Mg/1 Ml Vial) 1 mg IV UD PRN; Protocol PRN Reason: EtOH Withdrawal AWSS Score 6,7 Stop: 08/02/23 23:56 Miscellaneous (Icu Protocol For Hyperglycemia) 1 each N/A ACHS [facility] Stop: 07/06/23 07:29 Last Admin: 07/04/23 09:13 Dose: Not Given Pending Studies at Discharge: No Stand-Alone Forms: [facility], [facility], [facility] Emergency Department, Important Visit Information Skilled Items Patient informed of condition?: Yes DNR: No Discharge Level of Care: Other Communicable Disease: No Discharge Prognosis: Stable Lines: Peripheral IV Urinary Catheter: No Medications and DC Order Prescriptions: Continued furosemide 40 mg tablet 40 mg PO QAM levothyroxine 100 mcg tablet 100 mcg PO DAILYBB potassium chloride 8 mEq tablet extended release 8 meq PO BID tamsulosin 0.4 mg capsule 0.4 mg PO HS hydroxyzine HCl 25 mg tablet 25 mg PO HS PRN (Reason: Sleep) Rx Instructions: ordered routine..pt only takes prn multivitamin Tablet 1 tab PO QAM omega-3 fatty acids 1,000 mg Capsule 1,000 mg PO QAM Discharge Orders: Discharge Order (Routine); Ordered 07/04/23 Ordered By: Dane Fuller Admission Data Admit Date/Time: 07/03/23 23:41 Attending Provider: Dane Fuller Admit Provider: Ortiz Beckham Primary Care Provider: PCP,NO Other Providers: Ortiz Beckham ; Jerilyn Carvajal Jr ; Jan Beckett
--- NOTE | 2023-07-04 13:03 | Hospitalist Progress Note ---
Date of Service July 04, 2023 Assessment & Plan (1) Hemorrhagic shock: (2) Bleeding esophageal varices: (3) Alcoholic cirrhosis: (4) Thrombocytopenia: Plan: 58-year-old male history of alcoholic liver cirrhosis presented to the ED with hematemesis. Patient was hypotensive on presentation with elevated lactic acid of 8.4 with active vomiting. He was transfused 4 units of packed RBC, [address] abdomen and pelvis personally reviewed showed cirrhosis and signs of portal hypertension. Patient underwent EGD by GI; found to have grade 3 esophageal varices which were banded. Red blood was seen in the gastric fundus and in the gastric body and antrum. Labs reviewed; Hemoglobin is stable around 8. Platelets of 29,000 INR of 1.3. Ammonia elevated 119. Continue n.p.o. status. Continue on octreotide drip for next 3 days PPI twice daily Continue to monitor for withdrawal; Ativan as needed for alcohol withdrawal Continue on ceftriaxone Discussed with patient about the transfer. Patient lives at [place] and traveled here to meet his son. He is okay with being transferred to [facility] as he gets most of his care there and is closer to his house. Discussed with Dr. Eastman at [facility] to provide update. Discharge when bed is available. Time spent evaluating patient, direct bedside care, chart review, placing orders, interpretation of diagnostic studies, discussion with consultants, patient, and family members, as well as other required patient management activities is 60 minutes Please note the above document was generated using voice recognition software. It may contain grammatical, syntax or spelling errors. Any formal questions or concerns about the content, text or information contained within the body of this dictation should be directly addressed to the provider for clarification Admission and Anticipated Discharge Date Admission Date: July 03, 2023 Subjective Patient seen and examined at bedside. He is lying in the bed comfortably; not in distress. Reports some tremors. Hemodynamically stable. No hematemesis Review of Systems Review of Systems: All systems reviewed & are unremarkable except as noted in Subjective Physical Exam Physical Exam: Constitutional: Awake, alert orient x3; Respiratory: Bilateral vesicular breath sound. Cardiovascular: RRR, no murmur, no edema Vessels: no JVD or carotid bruit Chest: normal inspection of chest Abdomen: Slightly distended, nontender. Musculoskeletal: no cyanosis or clubbing, extremities motor strength 5/5 Skin: no rashes, warm and dry normal turgor Neurologic: PERRL, EOMI, accommodation nl, no face palsy, no dysarthria CN's II- XI intact bilaterally and moves all extremities Psychiatric: A+Ox3, euthymic affect Results & Data Results & Data Vital Signs (Past 12 Hours) Vital Signs Temp Pulse Resp BP Pulse Ox O2 Del Method O2 Flow Rate 07/04/23 12:00 37.0 C 76 18 92 07/04/23 11:30 37.1 C 73 16 93 07/04/23 11:30 110/63 07/04/23 11:00 37.1 C 72 15 93 07/04/23 11:00 110/62 07/04/23 10:00 37.3 C 78 18 93 07/04/23 10:00 136/65 07/04/23 09:30 37.3 C 76 14 92 07/04/23 09:30 114/61 07/04/23 11:04 78 07/04/23 09:00 37.3 C 78 15 92 07/04/23 09:00 109/65 07/04/23 08:30 116/61 07/04/23 08:30 37.2 C 80 16 07/04/23 08:00 37.1 C 81 20 90 07/04/23 08:00 117/62 07/04/23 08:00 117/62 07/04/23 07:30 118/64 07/04/23 07:30 37.0 C 81 23 94 07/04/23 07:00 36.9 C 80 20 92 07/04/23 07:00 111/59 L 07/04/23 06:45 36.9 C 77 16 94 07/04/23 09:37 Nasal Cannula 2 07/04/23 08:00 78 07/04/23 06:30 37.0 C 81 21 93 07/04/23 06:30 106/58 L 07/04/23 06:20 82 17 92 07/04/23 06:10 80 19 94 07/04/23 06:00 89 29 H 94 07/04/23 06:00 128/69 07/04/23 05:50 81 13 94 07/04/23 05:40 82 14 94 07/04/23 05:30 80 13 93 07/04/23 05:30 114/61 07/04/23 05:20 82 14 94 07/04/23 05:10 79 12 96 07/04/23 05:00 85 12 94 07/04/23 05:00 118/63 07/04/23 04:50 79 14 95 07/04/23 04:40 94 H 20 96 07/04/23 04:30 85 13 94 07/04/23 04:30 116/64 07/04/23 04:20 79 12 96 07/04/23 04:10 79 13 96 07/04/23 04:00 84 17 95 07/04/23 04:00 112/60 07/04/23 03:50 78 19 96 07/04/23 03:40 84 19 96 07/04/23 04:38 37.3 C 07/04/23 01:30 36.6 C 88 12 116/66 100 3 07/04/23 03:30 79 14 96 07/04/23 03:30 114/63 07/04/23 03:20 79 13 96 07/04/23 03:10 76 14 96 07/04/23 03:00 82 12 94 07/04/23 03:00 111/63 07/04/23 02:50 80 13 95 07/04/23 02:40 85 12 96 07/04/23 02:30 119/61 07/04/23 02:40 36.6 C 78 16 111/63 99 1 07/04/23 02:53 74 07/04/23 02:30 85 14 95 07/04/23 02:20 81 13 96 07/04/23 02:10 78 14 97 07/04/23 02:00 81 14 97 07/04/23 02:00 117/63 07/04/23 01:50 80 12 99 07/04/23 01:40 80 22 99 07/04/23 01:30 77 12 99 07/04/23 01:30 116/62 07/04/23 01:25 116/66 07/04/23 01:25 88 13 100 07/04/23 01:20 78 13 100 07/04/23 01:20 113/61 07/04/23 01:15 112/67 07/04/23 01:15 77 13 100 07/04/23 01:10 74 12 100 07/04/23 01:10 112/64 07/04/23 01:05 75 12 98 07/04/23 01:05 113/65 07/04/23 01:00 79 19 100 07/04/23 01:00 117/67 07/04/23 01:58 36.8 C 80 20 116/62 99 3 Laboratory Results Laboratory Results WBC 2.03 K/ul (4.8-10.8) L 07/04/23 04:30 RBC 2.82 M/uL (4.70-6.10) L 07/04/23 04:30 Hgb 8.8 g/dl (14.0-18.0) L 07/04/23 10:51 POC Hgb 8.2 g/dl (14.0-18.0) L 07/03/23 18:02 Hct 25.4 % (42.0-52.0) L 07/04/23 10:51 POC Hct 24 % (42-52) L 07/03/23 18:02 MCV 90.4 fL (80.0-100.0) 07/04/23 04:30 MCH 30.9 pg (25.0-34.0) 07/04/23 04:30 MCHC 34.1 g/dL (32.0-36.0) 07/04/23 04:30 RDW Std Deviation 58.7 fL (36.4-46.3) H 07/04/23 04:30 RDW Coeff of Mp 18.6 % (11.5-14.5) H 07/04/23 04:30 Plt Count 29 K/uL (130-400) L* 07/04/23 10:51 MPV 10.2 fL (9.4-12.4) 07/04/23 04:30 Immature Gran % (Auto) 0.0 % 07/04/23 04:30 Neut % (Auto) 52.7 % 07/04/23 04:30 Lymph % (Auto) 28.1 % 07/04/23 04:30 [place] % (Auto) 12.8 % 07/04/23 04:30 Eos % (Auto) 4.9 % 07/04/23 04:30 Baso % (Auto) 1.5 % 07/04/23 04:30 Neut # (Auto) 1.07 K/uL (1.40-6.50) L 07/04/23 04:30 Lymph # (Auto) 0.57 K/uL (1.20-3.40) L 07/04/23 04:30 [place] # (Auto) 0.26 K/uL (0.11-0.59) 07/04/23 04:30 Eos # (Auto) 0.10 K/uL (0.00-0.50) 07/04/23 04:30 Baso # (Auto) 0.03 K/uL (0.00-0.20) 07/04/23 04:30 Immature Gran # (Auto) 0.00 K/uL (0.01-0.20) L 07/04/23 04:30 Platelet Estimate Signific. Decreased (Normal) L 07/04/23 04:30 Anisocytosis Present 07/03/23 18:01 Ovalocytes 1+ 07/03/23 18:01 PT 14.5 Seconds (9.0-12.0) H 07/04/23 04:30 INR 1.3 (0.9-1.1) H 07/04/23 04:30 APTT 28.4 Seconds (21.0-31.0) 07/04/23 04:30 PTT Ratio 1.0 07/04/23 04:30 Fibrinogen 220 mg/dl (184-400) D 07/04/23 04:30 VBG pH 7.33 (7.36-7.41) L 07/04/23 00:59 VBG pCO2 45 mmHg (38-50) 07/04/23 00:59 VBG pO2 34 mmHg 07/04/23 00:59 VBG HCO3 24 mmol/L 07/04/23 00:59 VBG O2 Saturation < 60.0 % 07/04/23 00:59 VBG Base Excess -2.4 mEq/L 07/04/23 00:59 POC Sodium 137 mmol/L (135-144) 07/03/23 18:02 Sodium 141 mmol/L (136-145) 07/04/23 04:30 POC Potassium 2.8 mmol/L (3.3-5.0) L 07/03/23 18:02 Potassium 3.7 mmol/L (3.5-5.1) D 07/04/23 04:30 POC Chloride 95 mmol/L (101-112) L 07/03/23 18:02 Chloride 105 mmol/L (98-107) 07/04/23 04:30 Carbon Dioxide 26 mmol/L (21-32) 07/04/23 04:30 POC Total CO2 23 mmol/L (24-31) L 07/03/23 18:02 Anion Gap 10 (3-11) 07/04/23 04:30 POC Anion Gap 22.0 mmol/L (16-25) 07/03/23 18:02 POC BUN 9 mg/dl (7-18) 07/03/23 18:02 BUN 12 mg/dl (6-23) 07/04/23 04:30 Creatinine 0.56 mg/dl (0.6-1.4) L 07/04/23 04:30 POC Creatinine 1.3 mg/dl (0.6-1.3) 07/03/23 18:02 Est Cr Clr Drug Dosing 132.0 ml/min 07/04/23 04:30 Est GFR ( Amer) 133.1 ml/min 07/04/23 04:30 Est GFR (Non-Af Amer) 114.8 ml/min 07/04/23 04:30 BUN/Creatinine Ratio 21.4 (10-20) H 07/04/23 04:30 Glucose 109 mg/dl (70-99(Fasting)) H 07/04/23 04:30 POC Glucose 120 mg/dl (70-99) H 07/04/23 12:07 POC Glucose (other) 110 mg/dl (70-99) H 07/03/23 18:02 Lactate 1.5 mmol/L (0.4-2.0) 07/04/23 10:51 Calcium 7.7 mg/dl (8.6-10.3) L 07/04/23 04:30 POC Ioniz Calcium Roddy 1.01 mmol/l (1.12-1.32) L 07/03/23 18:02 Phosphorus 3.3 mg/dl (2.5-4.9) 07/04/23 04:30 Magnesium 1.4 mg/dl (1.7-2.4) L 07/04/23 04:30 Total Bilirubin 4.6 mg/dl (0.2-1.0) H 07/04/23 04:30 Direct Bilirubin 2.1 mg/dl (0-0.2) H 07/04/23 04:30 AST 123 U/L (13-39) H 07/04/23 04:30 ALT 32 U/L (7-52) 07/04/23 04:30 Alkaline Phosphatase 92 U/L (34-104) 07/04/23 04:30 Ammonia 119.0 umol/L (18-72) H 07/04/23 10:51 Troponin I High Sens 9.3 pg/ml (0-20) 07/03/23 18:01 Total Protein 6.1 gm/dl (6.0-8.3) 07/04/23 04:30 Albumin 2.9 gm/dl (3.4-5.0) L 07/04/23 04:30 Globulin 3.2 gm/dl (2.5-4.0) 07/04/23 00:59 Albumin/Globulin Ratio 0.9 (0.9-2) 07/04/23 00:59 Lipase 90 U/L (11-82) H 07/04/23 04:30 Urine Color Yellow 07/03/23 21:15 Urine Appearance Clear (Clear) 07/03/23 21:15 Urine pH 6.0 (4.5-7.5) 07/03/23 21:15 Ur Specific [place] 1.045 (1.000-1.030) H 07/03/23 21:15 Urine Protein Negative (Negative) 07/03/23 21:15 Urine Glucose (UA) Negative (Negative) 07/03/23 21:15 Urine Ketones Negative (Negative) 07/03/23 21:15 Urine Blood Negative (Negative) 07/03/23 21:15 Urine Nitrite Negative (Negative) 07/03/23 21:15 Urine Bilirubin Negative (Negative) 07/03/23 21:15 Urine Urobilinogen Negative (Negative) 07/03/23 21:15 Ur Leukocyte Esterase Negative (Negative) 07/03/23 21:15 Nasal Screen MRSA (PCR) Negative (Negative) 07/03/23 Unknown Ethyl Alcohol mg/dL 215.2 mg/dl (<10.0) H 07/03/23 18:01 SARS-CoV-2, RNA, NAAT NEGATIVE (NEGATIVE) 07/03/23 18:36 Blood Type O Positive 07/03/23 18:01 Blood Type Recheck O Positive 07/03/23 18:30 Antibody Screen NEGATIVE 07/03/23 18:01 Crossmatch See Detail 07/03/23 18:01 Impressions Chest X-Ray 07/03/23 17:56 XR chest 1V portable CLINICAL HISTORY: Atypical chest pain. COMPARISON STUDY: No previous studies for comparison. FINDINGS: Lung volumes are mildly diminished. Right basilar opacity is noted. Pleural effusion. No evidence for pulmonary edema. Prominence of the cardiac silhouette is likely technical. IMPRESSION: Low lung volumes suggestive of a hypoventilatory study. Right basilar opacities which likely reflect atelectasis. ACT 112: Negative or not required by law. Electronically signed by: Jon Torres M.D. 07/04/2023 7:03 AM Abdomen/Pelvis CT 07/03/23 17:59 CT OF THE ABDOMEN AND PELVIS WITH CONTRAST CLINICAL HISTORY: Abdominal pain. Hematemesis. COMPARISON STUDY: None. TECHNIQUE: Following IV administration of 87 mL of Optiray, axial images of the abdomen and pelvis were obtained from the lung bases to the proximal femurs. Images were reviewed in the axial, sagittal, and coronal planes. IV contrast was administered without complication. Automated exposure control was utilized for the study. A dose lowering technique was utilized adhering to the principles of ALARA. CT DOSE: 1295.64 mGy.cm FINDINGS: An 8 mm solid noncalcified left lower lobe pulmonary nodule on image 37 of 389 is noted. There is bilateral gynecomastia. No pneumatosis, free air or portal venous gas is present. Extensive paraesophageal and esophageal varices are present. Hyperdense material within the stomach is noted. The liver is cirrhotic. Heterogeneity of the liver is likely due to cirrhosis. No well- defined hepatic lesions are identified although sensitivity for detection of hypervascular lesions is diminished on this portal venous phase exam. The main, left and right portal veins are patent. There is no biliary ductal dilatation status post cholecystectomy. There are diverticula of the second and third portions of the duodenum. The spleen is enlarged. Additional abdominal and pelvic varices are present. Adrenal glands, kidneys and pancreas are unremarkable. There is no hydronephrosis. There is no pancreatic ductal dilatation. Moderate right colon wall thickening is noted with pericolonic stranding. A small amount of ascites within the abdomen is present. There is also rectal wall thickening. There is no evidence for a bowel obstruction. Major vasculature is patent. Avascular necrosis of the bilateral femoral heads without collapse is noted. IMPRESSION: 1. Cirrhosis with manifestations of portal hypertension including paraesophageal/esophageal varices, splenomegaly and a small amount of ascites. 2. Mixed attenuation contents within the stomach. This could reflect blood products intermixed with ingested contents. 3. Moderate right colon wall thickening with pericolonic stranding and fluid. Mild rectal wall thickening. The findings are likely related to portal hypertension however a nonspecific proctocolitis could appear similar. 4. No bowel obstruction. Normal appendix. 5. 8 mm left lower lobe pulmonary nodule. A follow-up chest CT in 6 months to ensure stability is recommended. 6. Avascular necrosis of the bilateral femoral heads without collapse. ACT 112: Negative or not required by law. Electronically signed by: Jon Torres M.D. 07/03/2023 6:42 PM
[2023-07-04] MEDS: PANTOprazole 40 MG in SYRINGE 0 ML IV SCH ×2 (13:06→20:41)
[2023-07-04] MEDS ORDERED: ONDANSETRON INJ 2 MG/ML 2 ML VIAL IV PRN (15:49)
[2023-07-04 17:02] LABS: Hematocrit (blood only) 27.5 % (42.0-52.0); Hemoglobin 9.3 g/dl (14.0-18.0)
[2023-07-04 23:23] LABS: Hematocrit (blood only) 26.6 % (42.0-52.0); Hemoglobin 9.1 g/dl (14.0-18.0)
[2023-07-05 05:41] LABS: Albumin Level 2.7 gm/dl (3.4-5.0); Bilirubin Direct 2.2 mg/dl (0-0.2); Bilirubin,Total 4.7 mg/dl (0.2-1.0); INR 1.5 (0.9-1.1); Magnesium 1.9 mg/dl (1.7-2.4); Partial Thromboplastin Time 28.7 Seconds (21.0-31.0); Phosphorus 2.1 mg/dl (2.5-4.9); Prothrombin Time 15.8 Seconds (9.0-12.0); Total Protein 6.1 gm/dl (6.0-8.3)
[2023-07-05 05:51] LABS: Hematocrit (blood only) 25.6 % (42.0-52.0); Hemoglobin 8.8 g/dl (14.0-18.0); Mean Corpuscular Hemoglobin 30.8 pg (25.0-34.0); Mean Corpuscular Hgb Conc 34.4 g/dL (32.0-36.0); Mean Corpuscular Volume 89.5 fL (80.0-100.0); Mean Platelet Volume 10.4 fL (9.4-12.4); Platelet Count 24 K/uL (130-400); RDW Standard Deviation 60.1 fL (36.4-46.3); Red Blood Count 2.86 M/uL (4.70-6.10); White Blood Count 2.06 K/ul (4.8-10.8)
[2023-07-05 06:26] LABS: ALC (manual) 0.84 K/uL (1.2-3.4); ANC (manual) 0.93 K/uL (1.4-6.5); Basophils # (manual) 0.02 K/uL (0-0.2); Basophils % (manual) 1 %; Eosinophils # (manual) 0.19 K/uL (0-0.50); Eosinophils % (manual) 9 %; Lymphocytes # (manual) 0.84 K/uL (1.2-3.4); Lymphocytes % (manual) 41 %; Monocytes # (manual) 0.08 K/uL (0.11-0.59); Monocytes % (manual) 4 %; Neutrophils # (manual) 0.93 K/uL (1.40-6.50); Neutrophils % (manual) 45 %
--- NOTE | 2023-07-05 07:51 | Critical Care Progress Note ---
Date of Service July 05, 2023 Assessment & Plan (1) Hemorrhagic shock: Plan: Reason Critically Ill: 58-year-old male with history of alcoholic cirrhosis presented to the emergency department with gross hematemesis with hortencia red blood, hemorrhagic shock from upper GI bleed source. Patient received 6 units packed cells as well as platelets FFP and cryoprecipitate. EGD showed a varix which was banded. Neuro - Encephalopathyresolved Cardiac -no current issues Respiratory -no current issues No history of pulmonary disease. Currently maintaining oxygen saturation on nasal cannula. Continuous monitoring pulse ox GI -variceal bleed due to cirrhosis and alcohol intake status post banding. Octreotide and Protonix per GI. Will need outpatient follow-up with repeat EGD in 4 to 6 weeks. Consider addition of nadolol or propranolol to reduce recurrent event RENAL/LYTES - Creatinine within normal limits. Monitor routine BMPs and replete electrolytes as indicated ENDO - No history of diabetes or thyroid disease. Currently euglycemic HEME -anemic and thrombocytopenic likely secondary to alcohol use. No evidence of active ongoing bleeding. ID -recommend completing 5-day course of antibiotics given recent variceal bleed. Second generation cephalosporin should be adequate LINES/IV ACCESS - Peripheral IVs DVT PROPHYLAXIS - SCDs, holding anticoagulation in the setting of acute GI bleed Patient's critical care issues have resolved. Critical care services will sign off. Disposition per the primary service although it appears the patient is requesting to sign out AGAINST MEDICAL ADVICE. I do not see an indication to transfer the patient to higher level of care. Feel free to contact us if we can be of additional assistance (2) End stage liver disease: (3) Bleeding esophageal varices: (4) Alcoholic cirrhosis: (5) Hematemesis: (6) Thrombocytopenia: (7) Lactic acidosis: (8) Varices, esophageal: Admission and Anticipated Discharge Date Admission Date: July 03, 2023 Subjective Patient seen and examined. MAR reviewed. Discussed with critical care NAVDEEP as well as with bedside critical care nurse. Patient is awake alert and conversant. He is not having any abdominal pain. No recurrent hematemesis. He was being downgraded to the floor but apparently has elected to sign out AGAINST MEDICAL ADVICE and is leaving the hospital this morning. Review of Systems Review of Systems: All systems reviewed & are unremarkable except as noted in Subjective Physical Exam Constitutional: WD/WN, vitals as above Neck: trachea midline, no thyromegaly Respiratory: normal respiratory effort, lungs clear to auscultation Cardiovascular: RRR, no murmur, no edema Gastrointestinal (Abdomen): normal bowel sounds, soft, nontender, no hepatosplenomegaly Musculoskeletal: Extremities: extremities normal to inspection Skin: no rashes, warm and dry Neurologic: Nonfocal exam Lymphatic: no cervical lymphadenopathy Results & Data Results & Data Vital Signs (Past 12 Hours) Vital Signs Temp Pulse Resp BP Pulse Ox O2 Del Method O2 Flow Rate 07/05/23 07:00 36.9 C 54 L 13 97 07/05/23 06:50 36.9 C 63 13 99 07/05/23 06:40 36.9 C 56 L 13 98 07/05/23 06:30 36.9 C 63 16 98 07/05/23 06:20 36.9 C 60 13 98 07/05/23 06:10 36.9 C 55 L 13 98 07/05/23 06:00 36.9 C 58 L 16 97 07/05/23 06:00 136/67 07/05/23 05:50 36.9 C 19 97 07/05/23 05:40 36.9 C 59 L 15 100 07/05/23 05:30 37.0 C 56 L 12 97 07/05/23 05:20 37.0 C 58 L 16 100 07/05/23 05:10 37.0 C 58 L 15 98 07/05/23 05:01 37.0 C 57 L 12 99 07/05/23 05:01 107/67 07/05/23 05:00 37.0 C 59 L 19 96 07/05/23 04:50 37.1 C 56 L 14 98 07/05/23 04:40 37.1 C 58 L 18 97 07/05/23 04:30 37.1 C 56 L 19 98 07/05/23 04:20 37.1 C 56 L 15 98 07/05/23 04:10 37.1 C 60 25 H 99 07/05/23 04:00 37.1 C 52 L 16 98 07/05/23 03:50 37.1 C 54 L 13 98 07/05/23 03:40 37.1 C 56 L 13 97 07/05/23 03:30 37.1 C 65 16 100 07/05/23 03:20 37.1 C 70 21 100 07/05/23 03:10 37.1 C 54 L 18 99 07/05/23 03:00 37.1 C 70 22 100 07/05/23 03:00 108/59 L 07/05/23 02:50 37.1 C 62 23 100 07/05/23 02:40 37.1 C 60 23 100 07/05/23 02:30 37.1 C 62 19 100 07/05/23 02:20 37.1 C 53 L 19 99 07/05/23 02:10 37.1 C 53 L 16 100 07/05/23 02:00 37.1 C 53 L 16 98 07/05/23 01:50 37.1 C 55 L 16 97 07/05/23 01:40 37.1 C 55 L 13 97 07/05/23 01:30 37.2 C 82 16 99 07/05/23 01:20 37.2 C 67 25 H 99 07/05/23 01:10 37.2 C 58 L 15 98 07/05/23 01:00 37.2 C 63 18 96 07/05/23 00:50 37.2 C 58 L 17 95 07/05/23 00:40 37.2 C 59 L 19 96 07/05/23 00:30 37.2 C 75 20 98 07/05/23 00:20 37.2 C 61 24 98 07/05/23 00:10 37.2 C 60 15 95 07/05/23 00:00 37.2 C 61 15 07/04/23 23:50 37.2 C 77 17 96 07/04/23 23:40 37.1 C 60 21 97 07/04/23 23:30 37.1 C 63 19 97 07/04/23 23:20 37.1 C 60 15 96 07/04/23 23:10 37.1 C 58 L 15 98 07/04/23 23:00 37.1 C 57 L 14 95 07/04/23 22:50 37.1 C 59 L 14 98 07/04/23 22:40 37.1 C 60 18 98 07/04/23 22:30 37.1 C 58 L 27 H 98 07/04/23 22:20 37.1 C 56 L 14 98 07/04/23 22:10 37.1 C 55 L 13 98 07/04/23 22:00 37.1 C 63 19 98 07/04/23 21:50 37.1 C 60 21 98 07/04/23 21:40 37.1 C 59 L 14 98 07/04/23 21:31 37.1 C 61 21 99 07/04/23 21:31 114/64 07/04/23 21:30 37.1 C 83 17 96 07/04/23 21:20 37.1 C 56 L 14 97 07/04/23 21:10 37.1 C 68 16 98 07/04/23 21:01 37.1 C 57 L 15 98 07/04/23 21:01 99/61 L 07/04/23 21:00 37.1 C 57 L 14 96 07/04/23 20:50 37.1 C 67 21 99 07/04/23 20:40 37.1 C 60 17 97 07/04/23 20:30 37.0 C 60 16 07/04/23 20:20 37.0 C 64 12 98 07/04/23 20:10 37.0 C 76 29 H 98 07/04/23 20:00 37.1 C 60 19 96 07/04/23 19:50 37.1 C 62 31 H 98 07/04/23 19:50 Nasal Cannula 4 Critical Care Results & Data Vital Signs (Past 12 Hours) Vital Signs Temp Pulse Resp BP Pulse Ox O2 Del Method O2 Flow Rate 07/05/23 07:00 36.9 C 54 L 13 97 07/05/23 06:50 36.9 C 63 13 99 07/05/23 06:40 36.9 C 56 L 13 98 07/05/23 06:30 36.9 C 63 16 98 07/05/23 06:20 36.9 C 60 13 98 07/05/23 06:10 36.9 C 55 L 13 98 07/05/23 06:00 36.9 C 58 L 16 97 07/05/23 06:00 136/67 07/05/23 05:50 36.9 C 19 97 07/05/23 05:40 36.9 C 59 L 15 100 07/05/23 05:30 37.0 C 56 L 12 97 07/05/23 05:20 37.0 C 58 L 16 100 07/05/23 05:10 37.0 C 58 L 15 98 07/05/23 05:01 37.0 C 57 L 12 99 07/05/23 05:01 107/67 07/05/23 05:00 37.0 C 59 L 19 96 07/05/23 04:50 37.1 C 56 L 14 98 07/05/23 04:40 37.1 C 58 L 18 97 07/05/23 04:30 37.1 C 56 L 19 98 07/05/23 04:20 37.1 C 56 L 15 98 07/05/23 04:10 37.1 C 60 25 H 99 07/05/23 04:00 37.1 C 52 L 16 98 07/05/23 03:50 37.1 C 54 L 13 98 07/05/23 03:40 37.1 C 56 L 13 97 07/05/23 03:30 37.1 C 65 16 100 07/05/23 03:20 37.1 C 70 21 100 07/05/23 03:10 37.1 C 54 L 18 99 07/05/23 03:00 37.1 C 70 22 100 07/05/23 03:00 108/59 L 07/05/23 02:50 37.1 C 62 23 100 07/05/23 02:40 37.1 C 60 23 100 07/05/23 02:30 37.1 C 62 19 100 07/05/23 02:20 37.1 C 53 L 19 99 07/05/23 02:10 37.1 C 53 L 16 100 07/05/23 02:00 37.1 C 53 L 16 98 07/05/23 01:50 37.1 C 55 L 16 97 07/05/23 01:40 37.1 C 55 L 13 97 07/05/23 01:30 37.2 C 82 16 99 07/05/23 01:20 37.2 C 67 25 H 99 07/05/23 01:10 37.2 C 58 L 15 98 07/05/23 01:00 37.2 C 63 18 96 07/05/23 00:50 37.2 C 58 L 17 95 07/05/23 00:40 37.2 C 59 L 19 96 07/05/23 00:30 37.2 C 75 20 98 07/05/23 00:20 37.2 C 61 24 98 07/05/23 00:10 37.2 C 60 15 95 07/05/23 00:00 37.2 C 61 15 07/04/23 23:50 37.2 C 77 17 96 07/04/23 23:40 37.1 C 60 21 97 07/04/23 23:30 37.1 C 63 19 97 07/04/23 23:20 37.1 C 60 15 96 07/04/23 23:10 37.1 C 58 L 15 98 07/04/23 23:00 37.1 C 57 L 14 95 07/04/23 22:50 37.1 C 59 L 14 98 07/04/23 22:40 37.1 C 60 18 98 07/04/23 22:30 37.1 C 58 L 27 H 98 07/04/23 22:20 37.1 C 56 L 14 98 07/04/23 22:10 37.1 C 55 L 13 98 07/04/23 22:00 37.1 C 63 19 98 07/04/23 21:50 37.1 C 60 21 98 07/04/23 21:40 37.1 C 59 L 14 98 07/04/23 21:31 37.1 C 61 21 99 07/04/23 21:31 114/64 07/04/23 21:30 37.1 C 83 17 96 07/04/23 21:20 37.1 C 56 L 14 97 07/04/23 21:10 37.1 C 68 16 98 07/04/23 21:01 37.1 C 57 L 15 98 07/04/23 21:01 99/61 L 07/04/23 21:00 37.1 C 57 L 14 96 07/04/23 20:50 37.1 C 67 21 99 07/04/23 20:40 37.1 C 60 17 97 07/04/23 20:30 37.0 C 60 16 07/04/23 20:20 37.0 C 64 12 98 07/04/23 20:10 37.0 C 76 29 H 98 07/04/23 20:00 37.1 C 60 19 96 07/04/23 19:50 37.1 C 62 31 H 98 07/04/23 19:50 Nasal Cannula 4 Lab & Micro Results (Past 24 Hours) RBC 2.86 M/uL (4.70-6.10) L 07/05/23 WBC 2.06 K/ul (4.8-10.8) L 07/05/23 Hgb 8.8 g/dl (14.0-18.0) L 07/05/23 Hct 25.6 % (42.0-52.0) L 07/05/23 MCV 89.5 fL (80.0-100.0) 07/05/23 MCH 30.8 pg (25.0-34.0) 07/05/23 MCHC 34.4 g/dL (32.0-36.0) 07/05/23 RDW Standard Deviation 60.1 fL (36.4-46.3) H 07/05/23 RDW Coefficient of Variation 19.0 % (11.5-14.5) H 07/05/23 Plt Count 24 K/uL (130-400) L* 07/05/23 MPV 10.4 fL (9.4-12.4) 07/05/23 ANC 0.93 K/uL (1.4-6.5) L* 07/05/23 ALC 0.84 K/uL (1.2-3.4) L 07/05/23 Neutrophils % (Manual) 45 % 07/05/23 Lymphocytes % (Manual) 41 % 07/05/23 Monocytes % (Manual) 4 % 07/05/23 Eosinophils % (Manual) 9 % 07/05/23 Basophils % (Manual) 1 % 07/05/23 Neutrophils # (Manual) 0.93 K/uL (1.40-6.50) L 07/05/23 Lymphocytes # (Manual) 0.84 K/uL (1.2-3.4) L 07/05/23 Monocytes # (Manual) 0.08 K/uL (0.11-0.59) L 07/05/23 Eosinophils # (Manual) 0.19 K/uL (0-0.50) 07/05/23 Basophils # (Manual) 0.02 K/uL (0-0.2) 07/05/23 Phosphorus Level 2.1 mg/dl (2.5-4.9) L 07/05/23 Total Bilirubin 4.7 mg/dl (0.2-1.0) H 07/05/23 Direct Bilirubin 2.2 mg/dl (0-0.2) H 07/05/23 AST 127 U/L (13-39) H 07/05/23 ALT 30 U/L (7-52) 07/05/23 Alkaline Phosphatase 73 U/L (34-104) 07/05/23 TP 6.1 gm/dl (6.0-8.3) 07/05/23 Albumin 2.7 gm/dl (3.4-5.0) L 07/05/23 Mg 1.9 mg/dl (1.7-2.4) 07/05/23 04:32 Prothromb Time International Ratio 1.5 (0.9-1.1) H 07/05/23 04 :32 I & O Totals 24 Hours 07/04/23 07/05/23 07/06/23 06:59 06:59 06:59 Intake Total 5740.909 / 5740.909 2584.661 / 2584.661 Output Total 2950 / 2950 3100 / 3100 Balance 2790.909 / 2790.909 -515.339 / -515.339 Cumulative 07/03/23 17:55 thru 07/05/23 05:09 Intake Total 8325.570 Output Total 6050 Balance 2275.570 RT Ventilator Mngmt (Last Documented) Ventilator Ordered Settings Respiratory Rate 13 07/05/23 07:00 Ventilator - PT Measurements Respiratory Rate 13 Coding Level of Care Code 47287 SUB INP/OBS CARE 2/35MIN Diagnoses Hemorrhagic shock R57.8 End stage liver disease K72.10 Bleeding esophageal varices I85.01 Alcoholic cirrhosis K70.30 Hematemesis K92.0 Thrombocytopenia D69.6 Lactic acidosis E87.20 Varices, esophageal I85.00
--- NOTE | 2023-07-05 09:45 | Gastroenterology Progress Note ---
Date of Service July 05, 2023 Assessment & Plan (1) Alcoholic cirrhosis: (2) Bleeding esophageal varices: Plan We reiterated to patient that we would NOT advise that he do this given the significance of his variceal bleeding and risk of adverse outcomes including but not limited to . The patient is alert & oriented x 3 and expresses understanding. Emphasized importance of outpatient follow-up with hepatology. Continue home medications upon discharge. Protonix 40 mg BID upon discharge. Would continue Lactulose upon discharge as well. Admission and Anticipated Discharge Date Admission Date: July 03, 2023 Supervising Physician Co-Signing Physician Notes I saw the patient and agree with the findings as documented by OC Lobo Patient seen in coverage for [facility]. Patient is a 58 yo male admitted with variceal bleeding requiring acute intervention for grade [address] Carvajal on 07/03/23. The patient denies any current GI bleeding. H/H is 8.8/25.6. The care plan was to transfer the patient to tertiary care where his hepatology team is located. He was awaiting transport, however unfortunately, upon our arrival to the ICU, we were informed that this patient is leaving Against Medic al Advice. He notes that he's going to have his son take him for testing with his lead engineer. Reportedly the AMA dispo was discussed with the patient by the hospitalist. Review of Systems Gastrointestinal: no abdominal pain, no nausea, no vomiting, no coffee ground emesis, no hematemesis and no melena Physical Exam Constitutional: no acute distress Respiratory: normal respiratory effort Gastrointestinal (Abdomen): normal bowel sounds, soft, nontender, no hepatosplenomegaly Psychiatric: Orientation: alert and oriented x 3 Results & Data Results & Data Vital Signs (Past 12 Hours) Vital Signs Temp Pulse Resp BP Pulse Ox 07/05/23 07:00 36.9 C 54 L 13 97 07/05/23 06:50 36.9 C 63 13 99 07/05/23 06:40 36.9 C 56 L 13 98 07/05/23 06:30 36.9 C 63 16 98 07/05/23 06:20 36.9 C 60 13 98 07/05/23 06:10 36.9 C 55 L 13 98 07/05/23 06:00 36.9 C 58 L 16 97 07/05/23 06:00 136/67 07/05/23 05:50 36.9 C 19 97 07/05/23 05:40 36.9 C 59 L 15 100 07/05/23 05:30 37.0 C 56 L 12 97 07/05/23 05:20 37.0 C 58 L 16 100 07/05/23 05:10 37.0 C 58 L 15 98 07/05/23 05:01 37.0 C 57 L 12 99 07/05/23 05:01 107/67 07/05/23 05:00 37.0 C 59 L 19 96 07/05/23 04:50 37.1 C 56 L 14 98 07/05/23 04:40 37.1 C 58 L 18 97 07/05/23 04:30 37.1 C 56 L 19 98 07/05/23 04:20 37.1 C 56 L 15 98 07/05/23 04:10 37.1 C 60 25 H 99 07/05/23 04:00 37.1 C 52 L 16 98 07/05/23 03:50 37.1 C 54 L 13 98 07/05/23 03:40 37.1 C 56 L 13 97 07/05/23 03:30 37.1 C 65 16 100 07/05/23 03:20 37.1 C 70 21 100 07/05/23 03:10 37.1 C 54 L 18 99 07/05/23 03:00 37.1 C 70 22 100 07/05/23 03:00 108/59 L 07/05/23 02:50 37.1 C 62 23 100 07/05/23 02:40 37.1 C 60 23 100 07/05/23 02:30 37.1 C 62 19 100 07/05/23 02:20 37.1 C 53 L 19 99 07/05/23 02:10 37.1 C 53 L 16 100 07/05/23 02:00 37.1 C 53 L 16 98 07/05/23 01:50 37.1 C 55 L 16 97 07/05/23 01:40 37.1 C 55 L 13 97 07/05/23 01:30 37.2 C 82 16 99 07/05/23 01:20 37.2 C 67 25 H 99 07/05/23 01:10 37.2 C 58 L 15 98 07/05/23 01:00 37.2 C 63 18 96 07/05/23 00:50 37.2 C 58 L 17 95 07/05/23 00:40 37.2 C 59 L 19 96 07/05/23 00:30 37.2 C 75 20 98 07/05/23 00:20 37.2 C 61 24 98 07/05/23 00:10 37.2 C 60 15 95 07/05/23 00:00 37.2 C 61 15 07/04/23 23:50 37.2 C 77 17 96 07/04/23 23:40 37.1 C 60 21 97 07/04/23 23:30 37.1 C 63 19 97 07/04/23 23:20 37.1 C 60 15 96 07/04/23 23:10 37.1 C 58 L 15 98 07/04/23 23:00 37.1 C 57 L 14 95 07/04/23 22:50 37.1 C 59 L 14 98 07/04/23 22:40 37.1 C 60 18 98 07/04/23 22:30 37.1 C 58 L 27 H 98 07/04/23 22:20 37.1 C 56 L 14 98 07/04/23 22:10 37.1 C 55 L 13 98 07/04/23 22:00 37.1 C 63 19 98 07/04/23 21:50 37.1 C 60 21 98 07/04/23 21:40 37.1 C 59 L 14 98 PG Care Time/CCT Total # of Minutes Spent Total Time Spent with Patient: Total time spent is greater than 50% in coordination of care (as documented) at patient's floor/unit and/or counseling patient: Coding Level of Care Code 78751 SUB INP/OBS CARE 3/50MIN Diagnoses Alcoholic cirrhosis K70.30 Bleeding esophageal varices I85.01
--- NOTE | 2023-07-05 12:40 | Discharge Summary ---
Date of Service July 05, 2023 Admission HPI Per Admitting Provider 58-year-old male history of liver cirrhosis, ongoing alcoholism ,hypothyroidism, BPH comes because of acute upper GI bleed. Patient is visiting [place] to son's place. He started vomiting blood and was brought to the ER. He has 2 more episodes of bloody vomiting in the ER first around 200 mill and second time around 400 mL. Was started on Protonix drip and Sandostatin drip. So far received 6 units of PRBCs, 2 units of FFP, 2 units of cryo and also IV vitamin K. Patient was recently in the [facility] system at [place] as per the son when he was intubated for aspiration pneumonitis. Initial plan was to transfer him back to [place] area and seem to be accepted but waiting for the bed. GI emergently did EGD and found to have bleeding grade 3 esophageal varices and s/p banding and seems no active bleeding observed after intervention. Patient currently in the ICU waiting to be transferred. Patient is somewhat lethargic. Knows his name. Complains of pain in belly. Could not get much history from the patient. Son also does not know much history of his father. Past medical history. Unknown at this time Past surgical history. Unknown at this time. Social history. Constant drinks alcohol as per son. Chews tobacco as per son. Family history. Unknown at this time Admission Exam Per Admitting Provider General- Lethargic. Head- atraumatic Eyes- PERRL, no pallor seen Neck- supple, no JVD. Lungs- clear to auscultation no wheezing or crackles. Heart- regular rhythm; no murmur, no gallop. Abdomen- normal bowel sounds, soft,diffuse tender , mild distension. Extremities- trace pretibial edema, no erythema seen Neuro- Lethargic ; PERRL, no facial palsy; no dysarthria; Principal Diagnosis (1) Hemorrhagic shock: (2) Bleeding esophageal varices: (3) Alcoholic cirrhosis: (4) Thrombocytopenia Discharge Exam Constitutional: Awake, alert orient x3; not in any distress Respiratory: Bilateral vesicular breath sound. Cardiovascular: RRR, no murmur, no edema Vessels: no JVD or carotid bruit Chest: normal inspection of chest Abdomen: Slightly distended, nontender. Musculoskeletal: no cyanosis or clubbing, extremities motor strength 5/5 Skin: no rashes, warm and dry normal turgor Neurologic: PERRL, EOMI, accommodation nl, no face palsy, no dysarthria CN's II- XI intact bilaterally and moves all extremities Psychiatric: A+Ox3, euthymic affect Discharge Data Allergies Allergy/AdvReac Type Severity Reaction Status Date / Time No Known Allergies Allergy Unverified 07/03/23 19:47 Consultations 07/03/23 19:16 ED Decision to Admit Stat 07/03/23 20:37 Consult Gastroenterology Stat 07/04/23 00:13 Consult Clinical Informatics Spec Routine 07/04/23 14:21 Burn CD for patient Stat Procedures Performed Operation Date: 07/03/23 22:00 Actual Procedures p Esophagogastroduodenoscopy - Jerliyn Carvajal Jr, MD Ordered Studies 07/03/23 17:59 CT Abd and Pelvis [CT abd pelvis IV con only] Stat Hospital Course (1) Hemorrhagic shock: 58-year-old male history of alcoholic liver cirrhosis presented to the ED with hematemesis. Patient was hypotensive on presentation with elevated lactic acid of 8.4 with active vomiting. He was transfused 4 units of packed RBC, [address] abdomen and pelvis showed cirrhosis and signs of portal hypertension. Patient underwent EGD by GI; found to have grade 3 esophageal varices which were banded. Red blood was seen in the gastric fundus and in the gastric body and antrum. Patient was started on octreotide drip and admitted to ICU for closer monitoring. Discussion was done by ED physician with [facility] for transfer given the complexity. Patient also stated that he gets his regular care there as well. His hemoglobin remained stable around 8 after the initial resuscitation. Platelet count of 29,000. Patient was agreeable for the transfer. However, in the morning of July 05, 2023; patient reported that he did not want to get transferred. He was recommended to stay inpatient for closer monitoring to make sure he does not have rebleeding. Patient declined and wanted to go home with his son. He was alert oriented x3. He verbalized understanding of the risks involved which include hemorrhagic shock, exsanguination, sepsis and . He reported that he will follow-up with his primary care doctor and GI doctor as soon as he gets back home. Patient left the hospital AGAINST MEDICAL ADVICE. Total Time Total Time Spent Total Time Spent (In Minutes): 45 Total Time Includes: Examination of the Patient, Discharge Planning, Medication Reconciliation, Communication With Other Providers and Other Discharge Plan Discharge Items Patient Disposition: Against Medical Advice Reason For Visit: GI BLEED ACUTE Activity: Resume your previous activity Non-emergency contact: Primary Care Provider Follow-up/Referrals: PCP,NO [Primary Care Provider] - Sapna Flanging Machine Operator Provider Instructions: You were admitted to the hospital due to upper GI bleed. The cause for the bleed is dilated vessels in your esophagus due to cirrhosis. Please only take sips of water for the next 2 days; then you can start on clear liquid diet and gradually advance the diet. Please follow-up with your primary care doctor and GI doctor. If you have recurrence of the symptoms; go to the nearest hospital. Pending Studies at Discharge: No Stand-Alone Forms: [employer], Smoking Cessation, Virtual Emergency Department, Important Visit Information Skilled Items Patient informed of condition?: Yes DNR: No Discharge Level of Care: Other Communicable Disease: No Discharge Prognosis: Stable Medications and DC Order Prescriptions: Continued furosemide 40 mg tablet 40 mg PO QAM levothyroxine 100 mcg tablet 100 mcg PO DAILYBB potassium chloride 8 mEq tablet extended release 8 meq PO BID tamsulosin 0.4 mg capsule 0.4 mg PO HS hydroxyzine HCl 25 mg tablet 25 mg PO HS PRN (Reason: Sleep) Rx Instructions: ordered routine..pt only takes prn multivitamin Tablet 1 tab PO QAM omega-3 fatty acids 1,000 mg Capsule 1,000 mg PO QAM Discharge Orders: Left Against Medical Advice (Routine); Ordered 07/05/23 Ordered By: Dane Fuller Admission Data Admit Date/Time: 07/03/23 23:41 Attending Provider: Dane Fuller Admit Provider: Ortiz Beckham Primary Care Provider: PCP,NO Other Providers: Ortiz Beckham ; Jerilyn Carvajal Jr ; Jan Beckett
--- NOTE | 2023-07-05 20:43 | Electrocardiogram Report ---
Test Reason : Blood Pressure : / mmHG Vent. Rate : 099 BPM Atrial Rate : 099 BPM P-R Int : 170 ms QRS Dur : 088 ms QT Int : 396 ms P-R-T Axes : 065 012 057 degrees QTc Int : 508 ms Normal sinus rhythm Nonspecific ST and T wave abnormality Prolonged QT Abnormal ECG No previous ECGs available Reconfirmed by Brian Mathew ([id number]) on 07/05/2023 8:43:35 PM Referred By: REFERRED SELF Confirmed By:Brian Mathew
== END 2023-07-05 10:50 | disposition left against medical advice (07) | DRG 368 ==
LOC: ED 17:55 → OR 22:31 → 1E 23:41